=== PATIENT | female | born 1940 | race Caucasian/White ===

== ENCOUNTER → 2017-01-13 | Outpatient (CLI) | payer MEDICARE, BC ==
--- NOTE | 2017-01-17 07:48 | MM ---
Reason for exam: screening (asymptomatic). Last mammogram was performed 1 year ago. History: Patient is postmenopausal and has history of other cancer at age 58. Physical Findings: A clinical breast exam by your physician is recommended on an annual basis and results should be correlated with mammographic findings. MG Screening Mammo w CAD Bilateral CC and MLO view(s) were taken. Prior study comparison: January 07, 2016, bilateral MG screening mammo w CAD. December 03, 2014, bilateral MG screening mammo w CAD. October 16, 2013, bilateral digital screening mammo w/CAD. The breast tissue is heterogeneously dense. This may lower the sensitivity of mammography. Finding: There are typically benign overal all stable calcifications in both breasts. No significant changes in finding since January 07, 2016, December 03, 2014, and October 16, 2013. ASSESSMENT: Benign, BI-RAD 2 RECOMMENDATION: Routine screening mammogram of both breasts in 1 year.
== END ==
LOC: RADMAMWWP 13:10
PROVIDERS: ATTEND Internal Medicine
DX: Z12.31 Encounter for screening mammogram for malignant neoplasm of breast (principal)

== ENCOUNTER → 2017-03-28 | Outpatient (CLI) | payer MEDICARE, BC ==
--- NOTE | 2017-03-29 07:18 | XR ---
EXAMINATION TYPE: XR lumbosacral spine min 4V , 5 VIEWS DATE OF EXAM ORDERED: 03/28/2017 HISTORY: M19.90,M46.1 OA,pelvic pain. COMPARISON: None. FINDINGS: There is a degenerative grade 1 spondylolisthesis of L4 on L5. Alignment otherwise maintai monica. There is wedging of the T12 vertebral body. This appears chronic. There is mild hypertrophic spo ndylosis in the lower dorsal spine. There is mild, diffuse facet arthropathy. There is a levoscoliosi s. The pedicles are intact. Incidental note is made of a previous cholecystectomy. There is atheromatous calcification of the blanca peña aorta. IMPRESSION: 1. DEGENERATIVE, GRADE 1 SPONDYLOLISTHESIS OF L4 ON L5. 2. WEDGING OF THE T12 VERTEBRAL BODY. THIS IS WEDGED BY APPROXIMATELY 20%. THIS APPEARS CHRONIC. 3. NO DEFINITE ACUTE OSSEOUS LESION. 4. DEGENERATIVE CHANGE.
--- NOTE | 2017-03-29 07:19 | XR ---
EXAMINATION TYPE: XR pelvis AP view , ONE VIEW DATE OF EXAM ORDERED: 03/28/2017 HISTORY: M19.90,M46.1 OA,pelvic pain. COMPARISON: None. FINDINGS: There are mild degenerative changes in both hips. Osseous structures about the pelvis are normal. There are phleboliths within the pelvis. IMPRESSION: NO ACUTE OSSEOUS LESION.
== END ==
LOC: RADXRYALE 14:13
PROVIDERS: ATTEND Internal Medicine
DX: R10.2 Pelvic and perineal pain (principal); M43.16 Spondylolisthesis, lumbar region; M47.816 Spondylosis without myelopathy or radiculopathy, lumbar region
CPT/HCPCS: 72110; 72170

== ENCOUNTER → 2017-05-27 | Outpatient (CLI) | payer MEDICARE, BC ==
--- NOTE | 2017-05-27 13:40 | XR ---
EXAMINATION TYPE: XR chest 2V DATE OF EXAM: 05/27/2017 COMPARISON: 04/29/2014 HISTORY: Cough and congestion for one week TECHNIQUE: Frontal and lateral views of the chest are obtained. FINDINGS: There is no focal air space opacity, pleural effusion, or pneumothorax seen. The cardiac silhouette size is within normal limits. The osseous structures are intact. Mild degenerative candelario es of the thoracic spine are noted. IMPRESSION: No acute cardiopulmonary process.
== END | disposition home or self-care (01) ==
LOC: RADXRYALE 10:09
PROVIDERS: ATTEND Internal Medicine
DX: J40 Bronchitis, not specified as acute or chronic (principal); J06.9 Acute upper respiratory infection, unspecified; J12.9 Viral pneumonia, unspecified
CPT/HCPCS: 71020

== ENCOUNTER → 2018-01-26 | Outpatient (CLI) | payer MEDICARE, BC ==
--- NOTE | 2018-01-27 09:47 | MM ---
Reason for exam: screening (asymptomatic). Last mammogram was performed 1 year ago. History: Patient is postmenopausal and has history of other cancer at age 58. Physical Findings: A clinical breast exam by your physician is recommended on an annual basis and results should be correlated with mammographic findings. MG 3D Screening Mammo W/Cad Bilateral CC and MLO view(s) were taken. Prior study comparison: January 13, 2017, bilateral MG screening mammo w CAD. January 07, 2016, bilateral MG screening mammo w CAD. There are scattered fibroglandular densities. Finding: Architectural distortion in the upper outer quadrant of the right breast. New finding since January 13, 2017 and January 07, 2016. ASSESSMENT: Incomplete: need additional imaging evaluation, BI-RAD 0 RECOMMENDATION: Ultrasound of the right breast. [facility] will attempt to contact patient to return for ultrasound.
== END | disposition home or self-care (01) ==
LOC: RADMAMWWP 13:10
PROVIDERS: ATTEND Internal Medicine
DX: Z12.31 Encounter for screening mammogram for malignant neoplasm of breast (principal)
CPT/HCPCS: 77063; 77067

== ENCOUNTER → 2018-02-02 | Outpatient (CLI) | payer MEDICARE, BC ==
--- NOTE | 2018-02-07 09:32 | USB ---
Reason for exam: additional evaluation requested from abnormal screening. History: Patient is postmenopausal and has history of other cancer at age 58. Physical Findings: Nurse did not find any significant physical abnormalities on exam. US Breast Workup RT Right complete breast ultrasound includes all four quadrants, the retroareolar region and axilla. Finding demonstrates ductal ectasia at the nipple and a 0.7 x 0.8 x 0.7cm solid, mixed lesion at 10 o'clock that corresponds to the mammographic finding. These results were verbally communicated with the patient and result sheet given to the patient on 02/02/18. ASSESSMENT: Suspicious, BI-RAD 4 RECOMMENDATION: Ultrasound core biopsy of the right breast. (10 o'clock) Called with mammographic findings and has scheduled an appointment for the patient for 02/08/18 at 11:[address] Morgan. PRELIMINARY REPORT CALLED AND FAXED TO DR. MORGAN ON .
== END | disposition home or self-care (01) ==
LOC: RADUSWWP 14:06
PROVIDERS: ATTEND Internal Medicine
DX: R92.8 Other abnormal and inconclusive findings on diagnostic imaging of breast (principal)

== ENCOUNTER → 2018-02-28 | Day surgery (SDC) | payer MEDICARE, BC ==
[2018-02-28 12:11] VITALS: BP 113/80; PULSE 88; RESP 18; TEMP 97.9; BMI 34.9
--- NOTE | 2018-02-28 13:16 | USB ---
EXAMINATION TYPE: US discontinued breast bx RT DATE OF EXAM: 02/28/2018 CLINICAL HISTORY: R92.8, ABN MAMM. TECHNIQUE: Ultrasound guided core biopsy of right breast. COMPARISON: Prior abnormal ultrasound and mammogram FINDINGS: The procedure of ultrasound guided core biopsy was explained to the patient. Benefits, alt ernatives, and risks were discussed. An informed consent was then obtained. The patient was placed in supine positioning for imaging and for the procedure. Preprocedure scannin g fails to show suspicious residual lesion at 10:00 position zone C right breast. Area marked on prio r study appears to blend with tissue on image 37. 2 separate technologist rescan the area without laquita picious mass or lesion. Mammogram is reviewed before and after procedure without distinct new area of distortion to warrant sampling on 3-D images. It is explained to patient that no suspicious lesion i s seen to warrant biopsy currently. At this point procedure was canceled. Patient was agreeable The patient was kept in the radiology department for short stay after the attempted procedure and the n discharged home in stable condition. IMPRESSION: Unsuccessful canceled ultrasound guided core biopsy of area of concern in the right breas t, no worrisome lesion persisted. BI-RADS 3 probable benign findings. Recommendation: Precautionary diagnostic Three-D right breast mammogram and diagnostic right breast u ltrasound in 6 months time. Patient is agreeable to above recommendation.
== END ==
LOC: RADUSWWP 11:51
PROVIDERS: ATTEND Internal Medicine
DX: R92.8 Other abnormal and inconclusive findings on diagnostic imaging of breast (principal); Z53.8 Procedure and treatment not carried out for other reasons

== ENCOUNTER → 2018-04-27 | Outpatient (CLI) | payer MEDICARE, BC ==
--- NOTE | 2018-04-27 12:39 | XR ---
EXAMINATION TYPE: XR chest 2V DATE OF EXAM: 04/27/2018 COMPARISON: 05/27/2017 TECHNIQUE: PA and lateral views submitted. HISTORY: Cough and congestion FINDINGS: The lungs are clear and there is no pneumothorax, pleural effusion, or focal pneumonia. Heart is en larged and there is a calcified granuloma in the left lung. No overt failure. Hypertrophic and degene rative change of the spine. Mild hyperinflation. IMPRESSION: 1. No acute process. Cardiomegaly correlate for COPD.
== END | disposition home or self-care (01) ==
LOC: RADXRYALE 11:19
PROVIDERS: ATTEND Internal Medicine Interventional Cardiology
DX: E87.8 Other disorders of electrolyte and fluid balance, not elsewhere classified (principal); R25.2 Cramp and spasm
CPT/HCPCS: 71046

== ENCOUNTER → 2018-10-06 | Outpatient (CLI) | payer MEDICARE, BC ==
--- NOTE | 2018-10-08 11:34 | MM ---
Reason for exam: follow-up at short interval from prior study. Last mammogram was performed 8 months ago. History: Patient is postmenopausal and has history of other cancer at age 58. US discontinued breast bx RT of the right breast, February 28, 2018. Physical Findings: Nurse did not find any significant physical abnormalities on exam. MG 3D Diag Mammo W/Cad RT CC and MLO view(s) were taken of the right breast. Prior study comparison: January 26, 2018, bilateral MG 3d screening mammo w/cad. January 13, 2017, bilateral MG screening mammo w CAD. The breast tissue is heterogeneously dense. This may lower the sensitivity of mammography. There is a focal asymmetry in the upper outer quadrant of the right breast that persists. ASSESSMENT: Incomplete: need additional imaging evaluation, BI-RAD 0 RECOMMENDATION: Ultrasound of the right breast.
--- NOTE | 2018-10-08 11:39 | USB ---
History: Patient is postmenopausal and has history of other cancer at age 58. US discontinued breast bx RT of the right breast, February 28, 2018. US Breast RT Right complete breast ultrasound includes all four quadrants, the retroareolar region and axilla. Finding demonstrates a 0.6 x 0.6 x 0.3 cm oval solid hyperechoic lesion at 1 o'clock thought to represent a small lymph node. And at the 10 o'clock position a 0.7 x 0.6 x 0.2 cm possible lymph node. These results were verbally communicated with the patient and result sheet given to the patient on 10/06/18. ASSESSMENT: Probably benign, BI-RAD 3 RECOMMENDATION: Routine screening mammogram of both breasts in 4 months. Back on schedule
== END | disposition home or self-care (01) ==
LOC: RADMAMWWP 13:31
PROVIDERS: ATTEND Internal Medicine
DX: R92.8 Other abnormal and inconclusive findings on diagnostic imaging of breast (principal)
CPT/HCPCS: 77065; 76641; G0279; 77061

== ENCOUNTER → 2019-01-31 | Outpatient (CLI) | payer MEDICARE, BC ==
--- NOTE | 2019-02-01 09:12 | MM ---
Reason for exam: screening (asymptomatic). Last mammogram was performed 4 months ago. History: Patient is postmenopausal and has history of other cancer at age 58. US discontinued breast bx RT of the right breast, February 28, 2018. Physical Findings: A clinical breast exam by your physician is recommended on an annual basis and results should be correlated with mammographic findings. MG 3D Screening Mammo W/Cad Bilateral CC and MLO view(s) were taken. Prior study comparison: October 06, 2018, right breast MG 3d diag mammo w/cad RT. January 26, 2018, bilateral MG 3d screening mammo w/cad. The breast tissue is heterogeneously dense. This may lower the sensitivity of mammography. Benign appearing bilateral calcifications. No suspicious abnormality. No significant changes when compared with prior studies. ASSESSMENT: Benign, BI-RAD 2 RECOMMENDATION: Routine screening mammogram of both breasts in 1 year.
== END | disposition home or self-care (01) ==
LOC: RADMAMWWP 10:45
PROVIDERS: ATTEND Internal Medicine
DX: Z12.31 Encounter for screening mammogram for malignant neoplasm of breast (principal)
CPT/HCPCS: 77063; 77067

== ENCOUNTER → 2019-12-28 | Outpatient (CLI) | payer MEDICARE ==
--- NOTE | 2019-12-28 10:44 | XR ---
EXAMINATION TYPE: XR chest 2V DATE OF EXAM: 12/28/2019 COMPARISON: Prior chest x-ray 04/27/2018 HISTORY: Osteoarthritis, cough TECHNIQUE: Frontal and lateral views of the chest are obtained on 3 images. FINDINGS: There is no pleural effusion or pneumothorax seen. Lungs show question some scarring the right upper lobe, suspect perihilar or right lower lobe airspace disease. The cardiac silhouette size is within normal limits. The osseous structures are intact. Prominent lung lines could be indicati ve of underlying COPD. There is thoracic spondylosis. There may be spinal curvature. Aorta is dense. IMPRESSION: Correlate for pneumonia, follow-up recommended A Yellow level critical message alert has been initiated for Brice Morgan MD via the [employer] Critical Results System on 12/28/2019 10:41 AM. This message alert has been sent to Brice Morgan MD via the preferences provided by the clinician for the receipt of Radiology Critical Findings. Mess age ID [id number].
--- NOTE | 2019-12-28 10:45 | XR ---
Right hip HISTORY: Chronic right hip pain 2 views of the right hip Correlation to pelvis dated 03/28/2017 Mild marginal spurring, joint space loss is again noted. Bone mineralization is reduced. Alignment is maintained. Probable vascular calcifications noted in the pelvis. IMPRESSION: Osteoarthritis right hip. Suspect osteopenia.
== END | disposition home or self-care (01) ==
LOC: RADXRYALE 09:00
PROVIDERS: ATTEND Internal Medicine
DX: M16.11 Unilateral primary osteoarthritis, right hip (principal); R05 Cough
CPT/HCPCS: 71046; 73502

== ENCOUNTER → 2020-01-03 | Outpatient (CLI) | payer MEDICARE ==
--- NOTE | 2020-01-03 12:10 | CT ---
EXAMINATION TYPE: CT chest w con DATE OF EXAM: 01/03/2020 COMPARISON: Chest x-ray 6 days ago and older x-ray 2018. HISTORY: Abnormal CXR, SOB x5 months CT DLP: 413.8 mGycm. Automated Exposure Control for Dose Reduction was Utilized. TECHNIQUE: CT scan of the thorax is performed following with IV Contrast, patient injected with 80 m L of Isovue 300. FINDINGS: LUNGS: Background mild underlying emphysematous change with mild biapical pleural/parenchymal scarrin g. Additional more prominent peripheral reticulation and fibrosis in the right upper lobe. There is 5 mm inferior right upper lobe nodule axial image 26. There is a irregular thick-walled cavitary lesio n posterior right lower lobe axial image 37 measuring 4.0 cm transversely by 2.7 cm AP diameter with surrounding groundglass opacity. Mild bibasilar linear scarring and/or atelectasis. No pleural effusi on or pneumothorax seen bilaterally. MEDIASTINUM: There are abnormal enlarged right hilar and mediastinal lymph nodes. For reference righ t paratracheal 1.6 x 1.2 cm lymph node is noted. For reference 2.9 x 1.6 cm subcarinal lymph node is noted image 28. Abnormal enlarged right hilar lymph nodes axial image 32. Cardiomegaly with moderate right greater than left biatrial dilatation. Trace pericardial effusion anterior-inferior aspect. Cor onary artery calcification is present which is noted marked underlying coronary artery disease. OTHER: Small hiatal hernia is seen. Cholecystectomy clips. No adrenal masses. Slight underlying scoli otic curvature with multilevel spurring in the spine. IMPRESSION: There is background mild emphysematous change with [id number] parenchymal fibrotic changes greatest in the right upper lobe. Corresponding to x-ray abnormality there is peripheral irre gular thick-walled cavitary lesion posteriorly in the right lower lobe. There is abnormal thoracic ad enopathy. Differential includes infectious process with pulmonary abscess and reactive adenopathy lucía laquita primary neoplasm such as squamous cell carcinoma. Strict clinical correlation advised throughout the determine need for further workup by possible bronchoscopy or PET/CT.
== END | disposition home or self-care (01) ==
LOC: RADCTMAIN 10:44
PROVIDERS: ATTEND Internal Medicine
DX: J43.9 Emphysema, unspecified (principal); J84.10 Pulmonary fibrosis, unspecified; R59.0 Localized enlarged lymph nodes; R91.8 Other nonspecific abnormal finding of lung field; R05 Cough
CPT/HCPCS: 82565; 84520; 71260; 36415; Q9967

== ENCOUNTER → 2020-01-18 | Outpatient (CLI) | payer MEDICARE ==
--- NOTE | 2020-01-20 16:26 | PE ---
Nuclear medicine PET/CT HISTORY: Solitary pulmonary nodule, initial Patient received 11.2 mCi F-18 FDG intravenously in delayed scanning was performed from the skull bas e to the mid thighs. Localization and attenuation correction CT scan was performed. Correlation to chest CT dated 01/03/2020 neck and CHEST: There is no evident cervical or supraclavicular adenopathy. No axillary adenopathy. T here is abnormal activity noted in the subcarinal location, associated adenopathy, SUV 8.5. There is right hilar adenopathy with associated hypermetabolic uptake, SUV 6.8. The patient's cavitary lesion in the right lower lobe is again noted and shows some associated uptake, SUV 5.6. Small nodule within the right upper lobe does not show hypermetabolic uptake. There is no pleural or pericardial effusio n. Retrocaval pretracheal node is not enlarged but shows hypermetabolic uptake in 4.7. ABDOMEN: There is no adrenal mass or retroperitoneal adenopathy. No evident liver uptake. Osseous structures: There is a lytic lesion involving the left ilium which shows associated hypermeta bolic uptake, SUV 7.3. Abnormal uptake also noted within the right ischium, there is associated lytic appearance on axial image 232, SUV 8.9. Lytic lesion also involves the right pubic ramus with associ ated uptake present. Multiple ribs show uptake including the anterior fifth rib on the left anterior left sixth rib and the posterior right 12th rib. The left lamina at C2 shows a lytic lesion and assoc iated SUV 9.7. Proximal left humerus shows a punctate focus of abnormal hypermetabolic activity. IMPRESSION: Metastatic disease as described.
== END | disposition home or self-care (01) ==
LOC: RADPETMAIN 09:51
PROVIDERS: ATTEND Internal Medicine Critical Care Medicine
DX: C41.4 Malignant neoplasm of pelvic bones, sacrum and coccyx (principal); C79.51 Secondary malignant neoplasm of bone; R93.7 Abnormal findings on diagnostic imaging of other parts of musculoskeletal system
CPT/HCPCS: 78815; A9552

== ENCOUNTER → 2020-01-25 | Outpatient (CLI) | payer MEDICARE | END | disposition home or self-care (01) | LOC: LABPAT 12:18 | PROVIDERS: ATTEND Internal Medicine Critical Care Medicine | DX: Z11.59 Encounter for screening for other viral diseases (principal) | CPT/HCPCS: 87635 ==

== ENCOUNTER 2020-01-29 11:42 | Day surgery (SDC) | payer MEDICARE ==
[2020-01-29 12:53] VITALS: TEMP 97.8
--- NOTE | 2020-01-29 13:59 | CT ---
EXAMINATION TYPE: CT guided FNA first lesion DATE OF EXAM: 01/29/2020 COMPARISON: PET/CT 01/28/2020 HISTORY: Abnormal PET/CT CT DLP: 824 mGycm Automated exposure control for dose reduction was used. FINDINGS: Following informed consent, skin overlying a suitable path to the patient's lytic lesion in the left ilium was localized using CT. The overlying skin was prepped and draped. Lidocaine was used for local anesthesia. 17-gauge guide needle was advanced to the level of the lytic lesion. Coaxial placement o f an 18-gauge needle was performed. Small amount of sanguinous material exited the guide needle, core specimen was obtained and submitted in formalin to pathology. Following the procedure hemostasis ach ieved. There is no immediate complication. Patient remained in stable condition. IMPRESSION: STATUS POST CORE BIOPSY LYTIC LEFT ILIUM BONE LESION. PATHOLOGY IS PENDING. THIS PROCEDURE PERFORMED BY THE UNDERSIGNED.
[2020-01-29 14:46] VITALS: BP 129/73; PULSE 90; RESP 16
== END 2020-01-29 14:40 | disposition home or self-care (01) ==
LOC: RADPROMAIN 11:42
PROVIDERS: ATTEND Internal Medicine Critical Care Medicine
DX: C79.51 Secondary malignant neoplasm of bone (principal); C34.90 Malignant neoplasm of unspecified part of unspecified bronchus or lung; C44.90 Unspecified malignant neoplasm of skin, unspecified
CPT/HCPCS: 10009; 20220; 36415; 77012; 88305; 88341; 88342

== ENCOUNTER → 2020-02-13 | Outpatient (CLI) | payer MEDICARE ==
--- NOTE | 2020-02-13 09:27 | MR ---
EXAMINATION TYPE: MR brain wo/w con DATE OF EXAM: 02/13/2020 COMPARISON: PET/CT January 18, 2020. HISTORY: Known Lung CA, checking for progression to Brain TECHNIQUE: Multiplanar, multisequence images of the brain and brainstem is performed without and with IV contras t, utilizing 11 mL intravenous Gadavist . FINDINGS: Diffusion weighted images demonstrate no evidence of a recent infarct . There is no worris ome extra-axial fluid collection. There is diffuse ventricular and sulcal prominence. There few scatt ered foci of T2 hyperintensity seen throughout the white matter bilaterally. Midline structures demonstrate normal morphology. The craniocervical junction appears within normal limits. Post contrast images demonstrate 7 mm ring-enhancing left mass right periventricular level a xial image 49 near frontoparietal junction. There is a larger 11 mm high left parietal ring-enhancing mass with adjacent vasogenic edema axial image 65. The dural venous sinuses appear patent. The visua lized sinuses are clear and the globes are intact. There is partial enhancing left upper cervical les ion size sagittal image 69 encroaching on foramen magnum. This is not included in [id number] and a dditional images. This correlates with PET image January 2020. IMPRESSION: There are 2 ring-enhancing metastatic lesions as detailed above. Background mild diffuse reflecting chronic small vessel ischemic change. Left upper cervical metastatic lesion partially imag ed.
== END | disposition home or self-care (01) ==
LOC: RADMRIMAIN 07:23
PROVIDERS: ATTEND Internal Medicine Critical Care Medicine
DX: C79.31 Secondary malignant neoplasm of brain (principal); I99.8 Other disorder of circulatory system; C34.90 Malignant neoplasm of unspecified part of unspecified bronchus or lung
CPT/HCPCS: 70553; A9585

== ENCOUNTER → 2020-04-17 | Outpatient (CLI) | payer MEDICARE ==
--- NOTE | 2020-04-17 16:33 | CT ---
EXAMINATION TYPE: CT chest w con DATE OF EXAM: 04/17/2020 COMPARISON: CT chest 01/03/2020. PET/CT 01/18/2020. HISTORY: Follow up lung cancer CT DLP: 381.6 mGycm Automated exposure control for dose reduction was used. CONTRAST: CT scan of the chest is performed with IV Contrast, patient injected with 80 mL of Isovue 300. FINDINGS: LUNGS: There is a redemonstrated 3.9 x 2.1 cm cavitary lung mass of the right lower lobe (4:39), slig htly changed in configuration and with more cavitary appearance versus 01/03/2020 comparison. There is moderately increased associated groundglass surrounding the mass, increased surrounding patchy opaci ty, and a few spiculated satellite appearing opacities just superiorly measuring up to 9 mm (4:20). T here is a new small right pleural effusion. 5 mm pulmonary nodule of the right upper lobe (4:25), unc hanged versus 01/03/2020. Unchanged additional scattered groundglass opacities, interstitial coarsenin g, and biapical centrilobular emphysema. No pneumothorax seen. The tracheobronchial tree is patent. MEDIASTINUM: Increased size of mediastinal left precarinal node measuring 1.2 x 1.5 cm (3:22), previo usly 0.9 x 1.4 cm on 01/18/2020 and 01/03/2020 comparisons. Subcarinal node measuring 3.8 x 2.0 cm (3:28 ), unchanged from 01/18/2020, and increased from 01/03/2020. Increased size of left hilar lymph node up to 1.2 cm (3:28), previously 0.6 cm. Right hilar lymphadenopathy appears similar. Cardiomegaly redemo nstrated. No pericardial effusion. Calcified coronary artery disease. No thoracic aortic aneurysm. Ma in pulmonary artery enlarged measuring 3.4 cm. OSSEOUS: There is a new superior endplate destruction of the T10 vertebral body most likely metastati c disease. Right rib 12 demonstrates increased size and osteolytic destruction versus 01/03/2020. New sclerotic focus in right rib 8 laterally (4:39). New periosteal reaction and haziness of left posteri or rib 10 (4:44). There is linear fracture deformities with periosteal reaction of anterior left ribs 5 and 6 in vertically oriented distribution, which likely represent traumatic fracture deformities. OTHER: No adrenal nodule. No axillary lymphadenopathy. IMPRESSION: 1. Right lower lobe cavitary lung mass demonstrates slightly different configuration and more cavitar y appearance versus 01/03/2020 and 01/18/2020 comparison. There are increased adjacent groundglass opaci ties and spiculated satellite lesions which are new. New small right pleural effusion. 2. Increased size of mediastinal and left hilar lymphadenopathy. 3. Increased and new osseous metastatic lesions of the spine and ribs. 4. Enlargement pulmonary artery may represent pulmonary arterial hypertension.
== END | disposition home or self-care (01) ==
LOC: RADCTMAIN 13:06
PROVIDERS: ATTEND Internal Medicine Hematology & Oncology
DX: C79.51 Secondary malignant neoplasm of bone (principal); C34.31 Malignant neoplasm of lower lobe, right bronchus or lung; I28.8 Other diseases of pulmonary vessels
CPT/HCPCS: 82565; 84520; 71260; 36415; Q9967

== ENCOUNTER → 2020-05-20 | Outpatient (CLI) | payer MEDICARE ==
--- NOTE | 2020-05-20 23:24 | MR ---
EXAMINATION TYPE: MR brain wo/w con DATE OF EXAM: 05/20/2020 COMPARISON: 02/13/2020 HISTORY: Hx of lung Ca, mets CONTRAST: Performed utilizing 9 mL intravenous Gadavist gadolinium contrast. TECHNIQUE: Multiplanar, multiecho imaging on a 3.0 Yin magnet is performed through the brain. Stud y is performed within 24 hours of arrival to the hospital. The craniovertebral junction is normal. The pituitary is normal. Diffusion-weighted imaging is performed. There is a right periventricular hyperintensity on the inve rsion recovery weighted sequence compatible with acute ischemic change. Series 305 image 152. This is smaller but at same location as the previous exam. The 7 mm ring-enhancing lesion at this level is d iminished in intensity on the postcontrast imaging compared to the previous examination. No interval growth is evident. Previous left parietal subcortical ring-enhancing lesion has diminished in size and there is signific ant improvement of the vasogenic edema. This currently measures 1.2 cm in craniocaudal dimension comp ared to 1.5 cm previous exam. There are some additional punctate white matter changes identified FLAIR images which may be chronic white matter ischemic changes. No additional ring enhancing lesions are evident. No interval growth is evident. No new lesions are i dentified. A abnormality identified within the posterior cervical cord is out of the [id number] on this exam and cannot be reevaluated. Ventricles and sulci are mildly prominent for the patient age. IMPRESSIONS: 1. 2 ring-enhancing lesions compatible with metastatic disease, the larger in the left parietal lobe has diminished in size and diminished vasogenic edema adjacent. The right periventricular ring-enhan cing lesion is stable in size with diminished intensity.
== END | disposition home or self-care (01) ==
LOC: RADMRIMAIN 13:49
PROVIDERS: ATTEND Radiology Radiation Oncology
DX: C79.31 Secondary malignant neoplasm of brain (principal); C79.51 Secondary malignant neoplasm of bone; C77.9 Secondary and unspecified malignant neoplasm of lymph node, unspecified; C34.31 Malignant neoplasm of lower lobe, right bronchus or lung; Z92.3 Personal history of irradiation
CPT/HCPCS: 70553; A9585

== ENCOUNTER → 2020-05-21 | Outpatient (CLI) | payer MEDICARE ==
--- NOTE | 2020-05-21 17:32 | XR ---
EXAMINATION TYPE: XR wrist complete LT DATE OF EXAM: 05/21/2020 CLINICAL HISTORY: Bone neoplasm. History of lung cancer metastatic to bone. TECHNIQUE: 4 views of the right wrist are obtained. COMPARISON: None FINDINGS: There is no acute fracture/dislocation evident in the right wrist. There is degenerative changes and subchondral cysts involving the radiocarpal, carpocarpal, and first carpometacarpal joint . Soft tissue calcification adjacent to the radial anterior aspect of the first carpometacarpal joint . No aggressive osseous destructive lesions seen. IMPRESSION: 1. No acute fracture or dislocation in the right wrist. 2. Degenerative changes of the wrist.
--- NOTE | 2020-05-21 17:34 | XR ---
EXAMINATION TYPE: XR elbow complete LT DATE OF EXAM: 05/21/2020 CLINICAL HISTORY: Neoplasm of bone. History of lung cancer metastatic to bone. TECHNIQUE: Frontal, lateral and oblique images of the right elbow are obtained. COMPARISON: None FINDINGS: There is no acute fracture/dislocation evident in the right elbow. No aggressive osseous d estructive lesions. Degenerative spurring of the ulnar aspect of the olecranon. No abnormal fat pad s igns are seen. The overlying soft tissue appears unremarkable. IMPRESSION: 1. No acute fracture or dislocation in the right elbow. 2. Degenerative change of the medial elbow.
== END | disposition home or self-care (01) ==
LOC: RADXRMAIN 14:12
PROVIDERS: ATTEND Radiology Radiation Oncology
DX: C79.31 Secondary malignant neoplasm of brain (principal); C34.31 Malignant neoplasm of lower lobe, right bronchus or lung; C79.51 Secondary malignant neoplasm of bone; C77.9 Secondary and unspecified malignant neoplasm of lymph node, unspecified; M19.032 Primary osteoarthritis, left wrist; M19.022 Primary osteoarthritis, left elbow; Z92.3 Personal history of irradiation

== ENCOUNTER → 2020-05-23 | Outpatient (CLI) | payer MEDICARE ==
--- NOTE | 2020-05-24 03:01 | MR ---
EXAMINATION TYPE: MR cspine/tspine wo/w con DATE OF EXAM: 05/23/2020 COMPARISON: None HISTORY: Lt arm pain, lung cancer with bone mets. Abnormal brain MRI 05-20-20. CONTRAST: Standard multiplanar, multisequence MRI departmental protocol utilizing 10 mL intravenous Gadavist ga dolinium contrast. Multiplanar multiecho imaging of the cervical and thoracic spine was performed without and with IV co ntrast. There is some straightening of the cervical spine. There is moderate disc space narrowing from C4 to C7 with spurring of the endplates. There is some narrowing of the spinal canal to 6 mm [address] the [address] point at C5-6. Canal measures 7.5 mm at C6-7. Cervical spinal cord shows no sign of edema. The bra instem appears intact. There is multilevel cervical facet arthropathy. There is some facet arthropath y at C2-3 level with posterior impingement on the cervical spinal cord There is no cervical compression fracture. The thoracic vertebra have normal alignment. Thoracic spinal cord has normal signal pattern. There is no evidence of cord edema. There is slight loss of height of T10 and T11 vertebral bodies of 10%. Th ere is mild increased signal in the anterior T11 vertebral body on the T2 images that is consistent w ith edema and relatively acute fracture. There is no thoracic paraspinal mass. I do not see asymmetri c lesion-thoracic or cervical spine to suggest metastatic disease. There is no thoracic spinal stenos is. IMPRESSION: There are some compression fractures of T10 and T11. T11 fracture could be relatively acute. This is probably related to osteoporosis. Spondylotic changes in the cervical spine. There is some spinal stenosis at C5-6. I do not see convincing evidence for cervical or thoracic metastatic disease in this patient with a h istory of cancer.
== END | disposition home or self-care (01) ==
LOC: RADMRIMAIN 19:36
PROVIDERS: ATTEND Internal Medicine Hematology & Oncology
DX: M48.02 Spinal stenosis, cervical region (principal); M47.812 Spondylosis without myelopathy or radiculopathy, cervical region; S22.078A Other fracture of T9-T10 vertebra, initial encounter for closed fracture; S22.088A Other fracture of T11-T12 vertebra, initial encounter for closed fracture; C34.31 Malignant neoplasm of lower lobe, right bronchus or lung; C79.51 Secondary malignant neoplasm of bone
CPT/HCPCS: 72156; 72157; A9585

== ENCOUNTER → 2020-05-30 | Outpatient (CLI) | payer MEDICARE ==
--- NOTE | 2020-06-03 10:06 | PE ---
Nuclear medicine PET/CT HISTORY: Right lung carcinoma, subsequent Patient received 12.4 mCi F-18 FDG intravenously in delayed scanning was performed from the skull bas e to the mid thighs. An attenuation correction CT, localization CT scan was also performed Correlation to prior exam 01/18/2020 Some motion present. Chest and neck: There is no evident cervical or supraclavicular adenopathy, no suspicious uptake. At the right apex there is a nodular density present which is pleural-based and not seen on prior exa m, there is mild uptake, SUV is 3.3. The mediastinal and hilar uptake seen on prior exam is no longer seen, retrocaval pretracheal node is normal in size. Peripheral density in the right lower lobe with associated effusion has developed in the interval, there is some associated uptake at this level, CLEMENT V 3.9. Interstitium is somewhat diffusely increased. At the level of the lingula there is some minima l uptake anteriorly, SUV 3.9. ABDOMEN: No suspicious uptake. No evident liver mass. Adrenal glands show no mass. No retroperitoneal adenopathy. Osseous structures show some improvement in hypermetabolic uptake, C2 region shows less intense uptak e, SUV 2.9 which was 9.7 on prior, proximal left humeral lesion does not show uptake. There is a pelv ic uptake have also improved, right ischium lytic lesion SUV 3.1. Spinous process uptake at the upper thoracic spine 2.7 SUV. IMPRESSION: There is improvement in the previous mediastinal uptake improvement in the bone uptake. Pleural effusion on the right is new, new interstitial changes. Suspicious uptake is new within the p eripheral right lung on the right, lingula, right lung apex.
== END | disposition home or self-care (01) ==
LOC: RADPETMAIN 13:53
PROVIDERS: ATTEND Internal Medicine Hematology & Oncology
DX: R91.1 Solitary pulmonary nodule (principal); J90 Pleural effusion, not elsewhere classified
CPT/HCPCS: 78815; A9552

== ENCOUNTER 2020-05-31 14:29 | Inpatient (IN) | payer MEDICARE ==
[2020-05-31] MEDS ORDERED: PANTOPRAZOLE 40 MG/10 ML VIAL IVP STA (15:28)
--- NOTE | 2020-05-31 15:34 | ED ---
General Adult HPI - General Chief complaint: GI Bleed Stated complaint: Blood In Stool Time Seen by Provider: 05/31/20 15:00 Source: patient Mode of arrival: ambulatory Limitations: no limitations - History of Present Illness Initial comments: Dictation was produced using [employer] ([employer]) dictation software. please excuse any grammatical, word or spelling errors. This patient was cared for during a federal and state declared state of emergency secondary to Covid 19 Chief Complaint: 79-year-old female past medical history of atrial fibrillation, dyslipidemia, lung cancer, presents today with bright red blood per rectum. History of Present Illness: This 79-year-old female she has multiple ongoing medical issues at the moment. She had her Lasix discontinued for worsening renal function. Last 3 days she's been having bright red blood per rectum. She denies any rectal pain. She has been feeling rather lightheaded. 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 She deals with a lot of chronic pain. She denies any history of diverticulitis. Denies any nausea or vomiting. She takes Eliquis for atrial fibrillation. She has been managed by her oncologist on outpatient basis. She did have labs performed recently however family does not have axis to the results. The ROS documented in this emergency department record has been reviewed and confirmed by me. Those systems with pertinent positive or negative responses have been documented in the HPI. All other systems are other negative and/or noncontributory. PHYSICAL EXAM: General Impression: Alert and oriented x3, not in acute distress HEENT: Normocephalic atraumatic, extra-ocular movements intact, pupils equal and reactive to light bilaterally, mucous membranes moist. Cardiovascular: Heart regular rate and rhythm Chest: Able to complete full sentences, no retractions, no tachypnea Abdomen: abdomen soft, non-tender, non-distended, no organomegaly Musculoskeletal: Pulses present and equal in all extremities, no peripheral minnie a Motor: no focal deficits noted Neurological: CN II-XII grossly intact, no focal motor or sensory deficits noted Skin: Intact with no visualized rashes Psych: Normal affect and mood ED course: 79-year-old female presents with chief complaint of acute GI bleed. She has been managed outpatient for lab abnormalities. She takes a blood thinner for atrial fibrillation. Vital signs upon arrival shows heart rate of 105, rest of vital signs within acceptable limits. Patient does have symptoms that could suggest anemia. Laboratory evaluation obtained. Hemoglobin stable at 12.3, rest of CBC is u nremarkable. Coag panel metabolic panel is negative. Considering that patient has had 3 days of bright red blood per rectum there is concern that patient will become more anemic. Patient is agreeable for admission. Will have GI consult it. Patient also complains of shortness of breath or have her real estate sales agent consulted. Case is discussed with Dr. Morgan who also requests that patient's oncologist be consulted as well. - Related Data Home Medications Medication Instructions Recorded Confirmed Apixaban [Eliquis] 5 mg PO BID 02/15/18 01/23/20 Fish Oil/Dha/Epa [Fish Oil 1,200 1 each PO BID 02/15/18 01/29/20 mg Fish Oil] Omeprazole 20 mg PO DAILY 02/15/18 01/29/20 Turmeric/Turmeric Root Extract 450 mg PO TID 02/15/18 01/29/20 [Turmeric 450-50 mg Capsule] Cholecalciferol (Vitamin D3) 2,000 unit PO DAILY 02/27/18 01/29/20 [Vitamin D3] Cyanocobalamin [Vitamin B-12] 500 mcg PO DAILY 02/27/18 01/29/20 Metoprolol Succinate (ER) [Toprol 25 mg PO BID 02/27/18 01/29/20 Xl] Multivit-Min/Iron/Folic/Lutein 1 each PO DAILY 02/27/18 01/29/20 [Centrum Silver Women Tablet] Potassium Chloride [Klor-Con 10] 1 each PO ONCE 02/27/18 01/29/20 Calcium Carbonate/Vitamin D3 1 each PO DAILY 01/23/20 01/29/20 [Caltrate 600 Plus D3 Tablet] Furosemide [Lasix] 20 mg PO DAILY 01/23/20 01/29/20 Glucosamine/Chondr Kim A Sod [Osteo 1 each PO BID 01/23/20 01/29/20 Bi-Flex Caplet] Ascorbic Acid [Vitamin C] 500 mg PO DAILY 01/29/20 01/29/20 Allergies Allergy/AdvReac Type Severity Reaction Status Date / Time No Known Allergies Allergy Verified 05/31/20 14:39 Review of Systems ROS Statement: Those systems with pertinent positive or pertinent negative responses have been documented in the HPI. ROS Other: All systems not noted in ROS Statement are negative. Past Medical History Past Medical History: Atrial Fibrillation, Cancer, GERD/Reflux, Hyperlipidemia, Hypertension, Osteoarthritis (OA) Additional Past Medical History / Comment(s): lung CA History of Any Multi-Drug Resistant Organisms: None Reported Past Surgical History: Cholecystectomy, Hysterectomy, Joint Replacement Additional Past Surgical History / Comment(s): Left knee replacement Past Anesthesia/Blood Transfusion Reactions: Previous Problems w/ Anesthesia Additional Past Anesthesia/Blood Transfusion Reaction / Comment(s): Heart rate drops with anesthesia Past Psychological History: No Psychological Hx Reported Smoking Status: Former smoker Past Drug Use History: None Reported - Past Family History Mother Family Medical History: Osteoarthritis (OA) Father Family Medical History: CVA/TIA Sister(s) Family Medical History: Cancer Additional Family Medical History / Comment(s): ovarian, colorectal, lung Brother(s) Family Medical History: Cancer Additional Family Medical History / Comment(s): brain General Exam Limitations: no limitations Course Vital Signs 05/31/20 05/31/20 14:35 16:38 Temperature 98.6 F 98.3 F Pulse Rate 105 H 86 Respiratory 18 22 Rate Blood Pressure 143/79 139/85 O2 Sat by Pulse 98 95 Oximetry Medical Decision Making - Lab Data Result diagrams: 05/31/20 15:40 05/31/20 15:40 Lab Results 05/31/20 05/31/20 05/31/20 Range/Units 15:40 15:40 15:40 WBC 8.4 (3.8-10.6) k/uL RBC 4.49 (3.80-5.40) m/uL Hgb 12.3 (11.4-16.0) gm/dL Hct 39.2 (34.0-46.0) % MCV 87.2 (80.0-100.0) fL MCH 27.4 (25.0-35.0) pg MCHC 31.4 (31.0-37.0) g/dL RDW 14.9 (11.5-15.5) % Plt Count 264 (150-450) k/uL Neutrophils % 80 % Lymphocytes % 10 % Monocytes % 6 % Eosinophils % 2 % Basophils % 0 % Neutrophils # 6.8 (1.3-7.7) k/uL Lymphocytes # 0.9 L (1.0-4.8) k/uL Monocytes # 0.5 (0-1.0) k/uL Eosinophils # 0.1 (0-0.7) k/uL Basophils # 0.0 (0-0.2) k/uL PT (9.0-12.0) sec INR (<1.2) APTT (22.0-30.0) sec Sodium 138 (137-145) mmol/L Potassium 4.1 (3.5-5.1) mmol/L Chloride 108 H (98-107) mmol/L Carbon Dioxide 23 (22-30) mmol/L Anion Gap 7 mmol/L BUN 16 (7-17) mg/dL Creatinine 1.22 H (0.52-1.04) mg/dL Est GFR (CKD-EPI)AfAm 48 (>60 ml/min/1.73 sqM) Est GFR (CKD-EPI)NonAf 42 (>60 ml/min/1.73 sqM) Glucose 124 H (74-99) mg/dL Plasma Lactic Acid Xavi 1.1 (0.7-2.0) mmol/L Calcium 9.5 (8.4-10.2) mg/dL Magnesium 2.1 (1.6-2.3) mg/dL Total Bilirubin 0.7 (0.2-1.3) mg/dL AST 17 (14-36) U/L ALT 13 (4-34) U/L Alkaline Phosphatase 72 (38-126) U/L Total Protein 6.2 L (6.3-8.2) g/dL Albumin 3.4 L (3.5-5.0) g/dL Blood Type Blood Type Recheck Bld Type Recheck Status Antibody Screen Spec Expiration Date 05/31/20 05/31/20 Range/Units 15:40 15:40 WBC (3.8-10.6) k/uL RBC (3.80-5.40) m/uL Hgb (11.4-16.0) gm/dL Hct (34.0-46.0) % MCV (80.0-100.0) fL MCH (25.0-35.0) pg MCHC (31.0-37.0) g/dL RDW (11.5-15.5) % Plt Count (150-450) k/uL Neutrophils % % Lymphocytes % % Monocytes % % Eosinophils % % Basophils % % Neutrophils # (1.3-7.7) k/uL Lymphocytes # (1.0-4.8) k/uL Monocytes # (0-1.0) k/uL Eosinophils # (0-0.7) k/uL Basophils # (0-0.2) k/uL PT 11.8 (9.0-12.0) sec INR 1.2 H (<1.2) APTT 27.9 (22.0-30.0) sec Sodium (137-145) mmol/L Potassium (3.5-5.1) mmol/L Chloride (98-107) mmol/L Carbon Dioxide (22-30) mmol/L Anion Gap mmol/L BUN (7-17) mg/dL Creatinine (0.52-1.04) mg/dL Est GFR (CKD-EPI)AfAm (>60 ml/min/1.73 sqM) Est GFR (CKD-EPI)NonAf (>60 ml/min/1.73 sqM) Glucose (74-99) mg/dL Plasma Lactic Acid Xavi (0.7-2.0) mmol/L Calcium (8.4-10.2) mg/dL Magnesium (1.6-2.3) mg/dL Total Bilirubin (0.2-1.3) mg/dL AST (14-36) U/L ALT (4-34) U/L Alkaline Phosphatase (38-126) U/L Total Protein (6.3-8.2) g/dL Albumin (3.5-5.0) g/dL Blood Type A Positive Blood Type Recheck A Pos Bld Type Recheck Status No Antibody Screen NEGATIVE Spec Expiration Date 06/03/2020 - 234 Disposition Clinical Impression: GI bleed Disposition: ADMITTED IP TO THIS [facility] Condition: Fair Referrals: Brice Morgan MD [Primary Care Provider] - 1-2 days Decision Time: 17:11
[2020-05-31 15:59] LABS: Basophils % (A) 0 %; Eosinophils # (A) 0.1 k/uL (0-0.7); Eosinophils % (A) 2 %; HCT 39.2 % (34.0-46.0); HGB 12.3 gm/dL (11.4-16.0); Lymphocytes # (A) 0.9 k/uL (1.0-4.8); Lymphocytes % (A) 10 %; MCH 27.4 pg (25.0-35.0); MCHC 31.4 g/dL (31.0-37.0); MCV 87.2 fL (80.0-100.0); Monocytes # (A) 0.5 k/uL (0-1.0); Monocytes % (A) 6 %; Neutrophils # (A) 6.8 k/uL (1.3-7.7); Neutrophils % (A) 80 %; Platelet Count 264 k/uL (150-450); RBC 4.49 m/uL (3.80-5.40); RDW 14.9 % (11.5-15.5); WBC 8.4 k/uL (3.8-10.6)
[2020-05-31 16:17] LABS: INR 1.2 (<1.2); Partial Thromboplastin Time 27.9 sec (22.0-30.0); Prothrombin Time 11.8 sec (9.0-12.0)
[2020-05-31 16:20] LABS: Albumin 3.4 g/dL (3.5-5.0); Calcium 9.5 mg/dL (8.4-10.2); Magnesium 2.1 mg/dL (1.6-2.3); Potassium 4.1 mmol/L (3.5-5.1); Total Bilirubin 0.7 mg/dL (0.2-1.3); Total Protein 6.2 g/dL (6.3-8.2)
--- NOTE | 2020-05-31 16:42 | XR ---
EXAMINATION TYPE: XR chest 2V DATE OF EXAM: 05/31/2020 COMPARISON: Chest CT April 17, 2020.Most recent chest x-ray December 28, 2019. PET CT earlier today. HISTORY: Known lung cancer with dyspnea. TECHNIQUE: Frontal and lateral views of the chest are obtained. FINDINGS: There is background moderate chronic emphysematous change with small right greater than le ft pleural effusions. There is posterior right midlung consolidation and/or atelectasis. There is pat caren left lung atelectasis and/or infiltrate. The cardiac silhouette size is mildly enlarged. New mild to moderate interstitial edema. The osseous structures are demineralized. IMPRESSION: Suspect CHF exacerbation as there is cardiomegaly with new mild to moderate interstitial edema and small right greater than left pleural effusions. Correlate clinically. There is additional new patchy left basilar acute infiltrate and/or atelectasis in posterior right midlung acute infiltr ate and/or atelectasis noted. Background moderate emphysematous and chronic parenchymal fibrotic johnston ge noted.
[2020-05-31] MEDS ORDERED: IPRATROPIUM-ALBUTEROL 3 ML NEB INHALATION STA (16:47)
[2020-05-31] MEDS ORDERED: ONDANSETRON 4 MG/2 ML VIAL IVP PRN (17:05)
[2020-05-31] MEDS ORDERED: NALOXONE 0.4 MG/ML 1 ML VIAL IV PRN (17:05)
[2020-05-31] MEDS: SODIUM CHLORIDE 0.9% 1,000 ML IV SCH (18:26)
[2020-05-31] MEDS ORDERED: HYDROcodone/APAP 10-325MG 1 EACH TAB PO PRN (19:36)
[2020-05-31] MEDS ORDERED: ACETAMINOPHEN TAB 325 MG TAB PO PRN (19:42)
[2020-05-31] MEDS: IPRATROPIUM-ALBUTEROL 3 ML NEB INHALATION SCH (20:05)
--- NOTE | 2020-05-31 20:12 | P.HPIM ---
History of Present Illness H&P Date: 05/31/20 (Bleeding per rectum recurrent) Chief Complaint: Patient brought to the hospital by her family in a car, recurrent rectal bl This is a dictation of the history and physical date of service 05/31/[address] Morgan. Chief complaint: Patient has recurrent bright red blood at home with each bowel movement for the last 4-5 days. History of present illness: Patient with history of atrial fibrillation she is on request 5 mg twice a day by cardiology. 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, ribs, right and left hips which she had Past Medical History Past Medical History: Atrial Fibrillation, Cancer, GERD/Reflux, Hyperlipidemia, Hypertension, Osteoarthritis (OA) Additional Past Medical History / Comment(s): lung CA History of Any Multi-Drug Resistant Organisms: None Reported Past Surgical History: Cholecystectomy, Hysterectomy, Joint Replacement Additional Past Surgical History / Comment(s): Left knee replacement Past Anesthesia/Blood Transfusion Reactions: Previous Problems w/ Anesthesia Additional Past Anesthesia/Blood Transfusion Reaction / Comment(s): Heart rate drops with anesthesia Past Psychological History: No Psychological Hx Reported Smoking Status: Former smoker Past Drug Use History: None Reported - Past Family History Mother Family Medical History: Osteoarthritis (OA) Father Family Medical History: CVA/TIA Sister(s) Family Medical History: Cancer Additional Family Medical History / Comment(s): ovarian, colorectal, lung Brother(s) Family Medical History: Cancer Additional Family Medical History / Comment(s): brain Medications and Allergies Home Medications Medication Instructions Recorded Confirmed Type Omeprazole 20 mg PO DAILY 02/15/18 05/31/20 History Cyanocobalamin [Vitamin B-12] 500 mcg PO DAILY 02/27/18 05/31/20 History Potassium Chloride [Klor-Con 10] 10 meq PO DAILY 02/27/18 05/31/20 History Calcium Carbonate/Vitamin D3 1 tab PO HS 01/23/20 05/31/20 History [Caltrate 600 Plus D3 Tablet] Furosemide [Lasix] 20 mg PO DAILY 01/23/20 05/31/20 History Glucosamine/Chondr Kim A Sod [Osteo 1 tab PO BID 01/23/20 05/31/20 History Bi-Flex Caplet] Albuterol Inhaler [Ventolin Hfa 2 puff INHALATION RT-Q4H PRN 05/31/20 05/31/20 History Inhaler] Albuterol Nebulized [Ventolin 2.5 mg INHALATION RT-Q4H PRN 05/31/20 05/31/20 History Nebulized] Apixaban [Eliquis] 5 mg PO BID 05/31/20 05/31/20 History HYDROcodone/APAP 10-325MG [Carver 1 tab PO Q6H PRN 05/31/20 05/31/20 History 10-325] Metoprolol Tartrate [Lopressor] 75 mg PO BID 05/31/20 05/31/20 History Ondansetron [Zofran] 4 mg PO Q6H PRN 05/31/20 05/31/20 History Turmeric Root Extract [Turmeric] 1,000 mg PO DAILY 05/31/20 05/31/20 History predniSONE 20 mg PO DAILY 05/31/20 05/31/20 History Allergies Allergy/AdvReac Type Severity Reaction Status Date / Time No Known Allergies Allergy Verified 05/31/20 17:19 Physical Exam Vitals: Vital Signs Temp Pulse Pulse Resp BP BP Pulse Ox 05/31/20 19:00 97.9 F 104 H 22 131/83 98 05/31/20 18:25 98.1 F 77 20 140/80 96 05/31/20 17:39 92 05/31/20 17:31 92 05/31/20 16:38 98.3 F 86 22 139/85 95 05/31/20 14:35 98.6 F 105 H 18 143/79 98 Intake and Output 05/31/20 05/31/20 05/31/20 06:59 14:59 22:59 Other: Weight 102.058 kg Results CBC & Chem 7: 05/31/20 15:40 05/31/20 15:40 Labs: Abnormal Lab Results - Last 24 Hours (Table) 05/31/20 05/31/20 05/31/20 Range/Units 15:40 15:40 15:40 Lymphocytes # 0.9 L (1.0-4.8) k/uL INR 1.2 H (<1.2) Chloride 108 H (98-107) mmol/L Creatinine 1.22 H (0.52-1.04) mg/dL Glucose 124 H (74-99) mg/dL Total Protein 6.2 L (6.3-8.2) g/dL Albumin 3.4 L (3.5-5.0) g/dL
[2020-05-31] MEDS: METOPROLOL TARTRATE 25 MG TAB PO SCH (20:54)
[2020-05-31] MEDS: MORPHINE SULFATE 4 MG/ML SYRINGE IV PRN (20:58)
[2020-05-31] MEDS: ZOLPIDEM 5 MG TAB PO PRN (23:15)
[2020-06-01] MEDS: SODIUM CHLORIDE 0.9% 1,000 ML IV SCH (03:05)
[2020-06-01 06:22] LABS: Basophils % (A) 1 %; Eosinophils # (A) 0.1 k/uL (0-0.7); Eosinophils % (A) 3 %; HCT 33.4 % (34.0-46.0); HGB 10.6 gm/dL (11.4-16.0); Lymphocytes # (A) 1.1 k/uL (1.0-4.8); Lymphocytes % (A) 20 %; MCH 27.7 pg (25.0-35.0); MCHC 31.8 g/dL (31.0-37.0); Mean Platelet Volume 6.7; Monocytes # (A) 0.6 k/uL (0-1.0); Monocytes % (A) 10 %; Neutrophils # (A) 3.7 k/uL (1.3-7.7); Neutrophils % (A) 65 %; Platelet Count 244 k/uL (150-450); RBC 3.83 m/uL (3.80-5.40); RDW 14.7 % (11.5-15.5); WBC 5.7 k/uL (3.8-10.6)
[2020-06-01] MEDS: IPRATROPIUM-ALBUTEROL 3 ML NEB INHALATION SCH ×4 (07:16→18:57)
[2020-06-01] MEDS: predniSONE 20 MG TAB PO SCH (08:42)
[2020-06-01] MEDS: METOPROLOL TARTRATE 25 MG TAB PO SCH ×2 (08:42→20:25)
[2020-06-01] MEDS: POTASSIUM CITRATE 10 MEQ TABLET.ER PO SCH (08:42)
[2020-06-01] MEDS: CYANOCOBALAMIN 500 MCG TAB PO SCH ×2 (08:43→08:44)
[2020-06-01] MEDS: FUROSEMIDE 20 MG TAB PO SCH (08:43)
[2020-06-01] MEDS: PANTOPRAZOLE 40 MG/10 ML VIAL IV SCH (08:43)
[2020-06-01 10:02] LABS: African American GFR (CKD) 54.5 (60.0-200.0); Albumin 3.3 g/dL (3.80-4.90); Albumin/Globulin Ratio 2.06 (1.60-3.17); Anion Gap 6.1 mmol/L (4.00-12.00); BUN/Creat Ratio 12.73 Ratio (12.00-20.00); Calcium 8.3 mg/dL (8.7-10.3); Carbon Dioxide 25.9 mmol/L (21.6-31.8); Globulin 1.6 g/dL (1.6-3.3); Potassium 3.9 mmol/L (3.5-5.5); Total Bilirubin 0.5 mg/dL (0.2-1.2); Total Protein 4.9 g/dL (6.2-8.2)
[2020-06-01 10:02] LABS: % Iron Saturation 21.56 (12.00-45.00)
[2020-06-01 10:14] LABS: Ferritin 330.8 ng/mL (10.0-291.0)
--- NOTE | 2020-06-01 10:26 | P.CONS ---
History of Present Illness - Reason for Consult Consult date: 05/31/20 lung cancer Requesting physician: Neo Irizarry - Chief Complaint Rectal Bleeding - History of Present Illness This is a very nice lady who presented with persistent dry cough started in August/2019,she had a CXR then a CT scan of chest done on 01/03/2020 which revealed 4 cm cavitary mass in RLL and enlarged hilar nodes,PET scan on 01/18/2020 revealed suspicious uptake in RLL lung mass,right hilar node and subcarinal node and evidence of multiple osseous lesions,including her hips. On 01/29/2020,CT guided biopsy of left iliac bone lesion was positive for adenoc arcinoma consistent with lung primary. PDL-1 was 20% NextGen sequencing and liquid biopsy did not show any actionable mutation On 02/12/2020,brain MRI revealed 2 small lesions consistent with metastatic disease. She completed palliative XRT to hips,brain (SBRT) and cervical spine on 03/07/2020. On 03/21/2020,she started yervoy/opdivo She feels very tired,persistent nausea/vominting over the last week,numbness and pain in left wrist up to elbow,barely drinking or eating,very poor urine out p ut,constipated,recent MRI of C and T spine did not reveal any evidence significant metastatic disease,small lytic lesion at C2, At last visit on 05/27 Dr. 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 She was also clinically dehydrated and low blood pressure. On 05/27 he recommended hospital admission but she declined. Immunootherapy was placed on Hold Steroids and PPI initiated Review of Systems All systems: negative (HPI) Past Medical History Past Medical History: Atrial Fibrillation, Cancer, GERD/Reflux, Hyperlipidemia, Hypertension, Osteoarthritis (OA) Additional Past Medical History / Comment(s): lung CA History of Any Multi-Drug Resistant Organisms: None Reported Past Surgical History: Cholecystectomy, Hysterectomy, Joint Replacement Additional Past Surgical History / Comment(s): Left knee replacement Past Anesthesia/Blood Transfusion Reactions: Previous Problems w/ Anesthesia Additional Past Anesthesia/Blood Transfusion Reaction / Comm: Heart rate drops with anesthesia Past Psychological History: No Psychological Hx Reported Smoking Status: Former smoker Past Drug Use History: None Reported - Past Family History Mother Family Medical History: Osteoarthritis (OA) Father Family Medical History: CVA/TIA Sister(s) Family Medical History: Cancer Additional Family Medical History / Comment(s): ovarian, colorectal, lung Brother(s) Family Medical History: Cancer Additional Family Medical History / Comment(s): brain Medications and Allergies Home Medications Medication Instructions Recorded Confirmed Type Omeprazole 20 mg PO DAILY 02/15/18 05/31/20 History Cyanocobalamin [Vitamin B-12] 500 mcg PO DAILY 02/27/18 05/31/20 History Potassium Chloride [Klor-Con 10] 10 meq PO DAILY 02/27/18 05/31/20 History Calcium Carbonate/Vitamin D3 1 tab PO HS 01/23/20 05/31/20 History [Caltrate 600 Plus D3 Tablet] Glucosamine/Chondr Kim A Sod [Osteo 1 tab PO BID 01/23/20 05/31/20 History Bi-Flex Caplet] Albuterol Inhaler [Ventolin Hfa 2 puff INHALATION RT-Q4H PRN 05/31/20 05/31/20 History Inhaler] Albuterol Nebulized [Ventolin 2.5 mg INHALATION RT-Q4H PRN 05/31/20 05/31/20 History Nebulized] HYDROcodone/APAP 10-325MG [[place] 1 tab PO Q6H PRN 05/31/20 05/31/20 History 10-325] Ondansetron [Zofran] 4 mg PO Q6H PRN 05/31/20 05/31/20 History Turmeric Root Extract [Turmeric] 1,000 mg PO DAILY 05/31/20 05/31/20 History predniSONE 20 mg PO DAILY 05/31/20 05/31/20 History Apixaban [Eliquis] 2.5 mg PO BID tablet 06/03/20 Rx Cyanocobalamin [Vitamin B-12] 500 mcg PO DAILY tab 06/03/20 Rx Furosemide [Lasix] 20 mg PO BID@0900,1600 tab 06/03/20 Rx Hydrocortisone Suppository 25 mg RECTAL DAILY #30 supp 06/03/20 Rx [Anusol-Hc] Metoprolol Tartrate [Lopressor] 50 mg PO BID tab 06/03/20 Rx Allergies Allergy/AdvReac Type Severity Reaction Status Date / Time No Known Allergies Allergy Verified 05/31/20 17:19 Physical Exam Vitals: Vital Signs Temp Pulse Pulse Resp BP BP Pulse Ox 05/31/20 20:23 95 05/31/20 20:06 98 05/31/20 19:00 97.9 F 104 H 22 131/83 98 05/31/20 18:25 98.1 F 77 20 140/80 96 05/31/20 17:39 92 05/31/20 17:31 92 05/31/20 16:38 98.3 F 86 22 139/85 95 05/31/20 14:35 98.6 F 105 H 18 143/79 98 Intake and Output 05/31/20 05/31/20 05/31/20 06:59 14:59 22:59 Other: Weight 102.058 kg - Constitutional General appearance: cooperative, no acute distress - EENT Eyes: EOMI, dentition normal ENT: hard of hearing, NA/AT, normal oropharynx - Neck Neck: normal ROM - Respiratory Respiratory: bilateral: diminished - Cardiovascular Rhythm: regular Heart sounds: normal: S1, S2 - Gastrointestinal General gastrointestinal: normal bowel sounds, soft - Integumentary Integumentary: pale - Neurologic non focal - Musculoskeletal Musculoskeletal: generalized weakness - Psychiatric Psychiatric: A&O x's 3 Results CBC & Chem 7: 06/02/20 05:16 06/02/20 05:16 Labs: Abnormal Lab Results - Last 24 Hours (Table) 05/31/20 05/31/20 05/31/20 Range/Units 15:40 15:40 15:40 Lymphocytes # 0.9 L (1.0-4.8) k/uL INR 1.2 H (<1.2) Chloride 108 H (98-107) mmol/L Creatinine 1.22 H (0.52-1.04) mg/dL Glucose 124 H (74-99) mg/dL Total Protein 6.2 L (6.3-8.2) g/dL Albumin 3.4 L (3.5-5.0) g/dL Chest x-ray: report reviewed Assessment and Plan Plan: Assessment and Recommendations: Metastatic Lung Cancer: - Recently on immune therapy which is on hold for concern of immune related side effects - Steroids Taper recently started Rectal Bleeding: - GI consult in place - PPI with steroids Physician Attest: I have completed the full history and physical and agree with above dictation dictated as a scribe'
[2020-06-01] MEDS ORDERED: FUROSEMIDE 10 MG/ML 4 ML VIAL IV STA (10:49)
--- NOTE | 2020-06-01 12:30 | P.PN ---
Subjective Progress Note Date: 06/01/20 (Rectal bleeding, atrial fibrillation,) Principal diagnosis: Rectal bleeding bright red blood for the last 4-5 days with the drop in hemoglobin to gram with hydration. Right lung CA with metastasis brain, C2, bilateral hips, ribs treated with radiation and immunotherapy. Patient requested no code, no CPR. This is dictation on progress note Date of service 06/01/2020. Patient still have bloody rectal bleeding, seen by Dr. Deirdre MCCOY, and planned for colonoscopy tomorrow for evaluation and treatment. Possibility of novel anticoagulant orally given by cardiology for atrial fibri llation could be the reason for that as well. She had questionable diastolic dysfunction with congestive heart failure with the elevated pro-BMP and a chest x-ray indicator of pulmonary congestion, nanci wallace seen by pulmonary and critical care, IV fluids discontinued and patient got extra dose of Lasix. And I ordered EKG to see the rate of the atrial fibrillation and if it is not controlled will add air quality technician. Patient currently conscious alert oriented 3, she is feeling better however still resistant to the bleeding per rectum. Her vital sign today on 06/01/2020 indicating that temperature 98.1 F oral, heart rate 92/m and respiratory rate 18 and blood pressure 132/86 and a pulse ox 95 on 2 L. Laboratory indicating that EGFR for non- 47 with the underlying chronic kidney disease, sodium and potassium within normal limits as well as carbon dioxide. Her creatinine improved from 1.221.1. Lactic acid 1.1, proBNP 10,600. Her hemoglobin drop from 12.310.6 with the gross blood in the stools. On the physical examination: Patient is conscious alert oriented 3 no acute pain. No abdominal pain. Head was normocephalic and atraumatic pupil was equal reactive conjunctiva pale, Oropharynx dentures upper and lower. Neck was supple no JVD no thyromegaly no lymph adenopathy. Chest she lung is created bilateral however she feel decreased air entry in the right lung field, auscultation was negative normal and the chest x-ray was indicating congestive heart failure probably diastolic however will obtain echocardiogram hopefully tomorrow. Heart: Regular irregularities with atrial fibrillation and we're holding at this time elliquis due to rectal bleeding with a drop of hemoglobin. GI: No nausea no vomiting. Extremities: She able to go to the bathroom with the use of the walker. And with the consultation of the physical therapy. Neuropsychiatry: Insomnia, and anxiety with her illness. Assessment: Rectal bleeding etiology is unclear going for endoscopy tomorrow by Dr. Gilmore on 06/02/2020 for evaluation. The novel anticoagulant for atrial fibrillation with held and could be a part of the problem of the bleeding and consideration. Atrial fibrillation. 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 Advanced osteoarthritis. Chronic kidney disease stage III. Plan: #1 waiting for the results of the lower endoscopy, #2 with holding the novel anticoagulant #3 obtaining EKG with the atrial septum. Currently controlled heart rate. #3 continue monitoring the patient's. Objective - Vital Signs Vital signs: Vital Signs Temp 98.1 F 06/01/20 07:00 Pulse 92 06/01/20 11:27 Resp 18 06/01/20 07:00 BP 132/86 06/01/20 07:00 Pulse Ox 95 06/01/20 07:00 Intake & Output 05/31/20 06/01/20 06/01/20 18:59 06:59 18:59 Intake Total 200 Output Total 100 Balance 100 Weight 102.058 kg 102.058 kg Intake: Oral 200 Output: Urine/Stool Mix 100 Other: # Voids 1 # Bowel Movements 1 - Labs CBC & Chem 7: 06/01/20 05:38 06/01/20 05:38 Labs: Abnormal Lab Results - Last 24 Hours (Table) 05/31/20 05/31/20 05/31/20 Range/Units 15:40 15:40 15:40 Hgb (11.4-16.0) gm/dL Hct (34.0-46.0) % Lymphocytes # 0.9 L (1.0-4.8) k/uL INR 1.2 H (<1.2) Chloride 108 H (98-107) mmol/L Creatinine 1.22 H (0.52-1.04) mg/dL Est GFR (CKD-EPI)AfAm (60.0-200.0) Est GFR (CKD-EPI)NonAf (60.0-200.0) Glucose 124 H (74-99) mg/dL Calcium (8.7-10.3) mg/dL Iron (50-170) ug/dL TIBC (228-460) ug/dL Ferritin (10.0-291.0) ng/mL Total Protein 6.2 L (6.3-8.2) g/dL Albumin 3.4 L (3.5-5.0) g/dL Cortisol (3.10-22.40) ug/dL 05/31/20 06/01/20 06/01/20 Range/Units 15:42 05:38 05:38 Hgb 10.6 L (11.4-16.0) gm/dL Hct 33.4 L (34.0-46.0) % Lymphocytes # (1.0-4.8) k/uL INR (<1.2) Chloride (98-107) mmol/L Creatinine (0.52-1.04) mg/dL Est GFR (CKD-EPI)AfAm 54.5 L (60.0-200.0) Est GFR (CKD-EPI)NonAf 47.0 L (60.0-200.0) Glucose (74-99) mg/dL Calcium 8.3 L (8.7-10.3) mg/dL Iron 47 L (50-170) ug/dL TIBC 218 L (228-460) ug/dL Ferritin 330.8 H (10.0-291.0) ng/mL Total Protein 4.9 L (6.3-8.2) g/dL Albumin 3.30 L (3.5-5.0) g/dL Cortisol 23.5 H (3.10-22.40) ug/dL
--- NOTE | 2020-06-01 13:31 | P.CNPUL ---
History of Present Illness Consult date: 06/01/20 Reason for consult: dyspnea History of present illness: This patient has metastatic adenocarcinoma of the lung. She is well-known to me. I was involved in her original diagnosis. At that time the patient came in for an abnormal lung mass and the CAT scan of the chest showed a 4 cm cavitating lesion the right lower lobe along with enlarged hilar lymph nodes and the PET scan furthermore showed increased uptake within the right lower lobe mass, hilar lymph nodes, subcarinal lymph nodes and multiple bony lesions involving her hips. The patient underwent a CT-guided biopsy of the left iliac bone and roustabout head to be adenocarcinoma lung primary. MRI of the brain was positive as the patient was found to have [employer] metastases. The patient was given radiation therapy to the hips, brain and cervical spine on 03/07/2020 and the patient was started on a combination of [place]?Opdivo under the care of Dr. Kumar and the patient has been receiving immunotherapy every 2 weeks. At one point she started getting sicker including diminished appetite and poor drinking and diminished urine output. She was getting also progressively more tired and occasionally was having nausea and vomiting and this was considered to be related to the immunotherapy treatment. She did not have any adrenal insufficiency. She did not have any pneumonitis. She came into the hospital yesterday because of worsening shortness of breath and as stated that she was having rectal bleeding. She was developing some constipation with narcotics that she was taking for pain control. She still some bright red blood per rectum. Her previous colonoscopy was done many years back. That hemoglobin dropped down to 10.6 from a baseline of 12.3.. The patient has chronic atrial fibrillation. She was taken anticoagulation form of Eliquis and this was placed on hold. Her chest x-ray shows CHF with cardiomegaly and increased interstitial edema right more than left pleural effusion in addition to that there was a new patchy left basilar infiltrate/atelectasis in addition to atelectatic changes in the right midlung and right posterior lung area. The patient's proBNP level was 10,600. TSH was at 2.01. Serum cortisol was 23.5. Serum iron was low at 47. Creatinine was 1.2 and subsequently down to 1.1. Correlation profile is within normal limits. The patient is scheduled to have a colonoscopy tomorrow. Review of Systems Constitutional: Reports fatigue, Reports poor appetite, Reports weakness, Reports weight loss Eyes: denies as per HPI, denies blurred vision, denies bulging eye, denies d ecreased vision, denies diplopia, denies discharge, denies dry eye, denies irritation, denies itching, denies pain, denies photophobia, denies loss of peripheral vision, denies loss of vision, denies tunnel vision/blind spots Ears: deny: decreased hearing, ear discharge, earache, tinnitus Ears, nose, mouth and throat: Denies headache, Denies sore throat Breasts: absent: as per HPI, change in shape, gynecomastia, masses, nipple discharge, pain, skin changes, swelling Cardiovascular: Reports decreased exercise tolerance, Reports dyspnea on exertion, Reports shortness of breath Respiratory: Reports dyspnea Gastrointestinal: Reports BRBPR Genitourinary: Reports as per HPI Menstruation: Reports as per HPI Musculoskeletal: Reports low back pain, Reports neck pain Musculoskeletal: absent: ankle pain, ankle stiffness, ankle swelling Integumentary: Reports as per HPI Neurological: Reports as per HPI Psychiatric: Reports as per HPI Endocrine: Reports as per HPI, Reports fatigue Hematologic/Lymphatic: Reports as per HPI Allergic/Immunologic: Reports as per HPI Past Medical History Past Medical History: Atrial Fibrillation, Cancer, GERD/Reflux, Hyperlipidemia, Hypertension, Osteoarthritis (OA) Additional Past Medical History / Comment(s): lung CA History of Any Multi-Drug Resistant Organisms: None Reported Past Surgical History: Cholecystectomy, Hysterectomy, Joint Replacement Additional Past Surgical History / Comment(s): Left knee replacement Past Anesthesia/Blood Transfusion Reactions: Previous Problems w/ Anesthesia Additional Past Anesthesia/Blood Transfusion Reaction / Comment(s): Heart rate drops with anesthesia Past Psychological History: No Psychological Hx Reported Smoking Status: Former smoker Past Drug Use History: None Reported - Past Family History Mother Family Medical History: Osteoarthritis (OA) Father Family Medical History: CVA/TIA Sister(s) Family Medical History: Cancer Additional Family Medical History / Comment(s): ovarian, colorectal, lung Brother(s) Family Medical History: Cancer Additional Family Medical History / Comment(s): brain Medications and Allergies Home Medications Medication Instructions Recorded Confirmed Type Omeprazole 20 mg PO DAILY 02/15/18 05/31/20 History Cyanocobalamin [Vitamin B-12] 500 mcg PO DAILY 02/27/18 05/31/20 History Potassium Chloride [Klor-Con 10] 10 meq PO DAILY 02/27/18 05/31/20 History Calcium Carbonate/Vitamin D3 1 tab PO HS 01/23/20 05/31/20 History [Caltrate 600 Plus D3 Tablet] Furosemide [Lasix] 20 mg PO DAILY 01/23/20 05/31/20 History Glucosamine/Chondr Kim A Sod [Osteo 1 tab PO BID 01/23/20 05/31/20 History Bi-Flex Caplet] Albuterol Inhaler [Ventolin Hfa 2 puff INHALATION RT-Q4H PRN 05/31/20 05/31/20 History Inhaler] Albuterol Nebulized [Ventolin 2.5 mg INHALATION RT-Q4H PRN 05/31/20 05/31/20 History Nebulized] Apixaban [Eliquis] 5 mg PO BID 05/31/20 05/31/20 History HYDROcodone/APAP 10-325MG [[place] 1 tab PO Q6H PRN 05/31/20 05/31/20 History 10-325] Metoprolol Tartrate [Lopressor] 75 mg PO BID 05/31/20 05/31/20 History Ondansetron [Zofran] 4 mg PO Q6H PRN 05/31/20 05/31/20 History Turmeric Root Extract [Turmeric] 1,000 mg PO DAILY 05/31/20 05/31/20 History predniSONE 20 mg PO DAILY 05/31/20 05/31/20 History Allergies Allergy/AdvReac Type Severity Reaction Status Date / Time No Known Allergies Allergy Verified 05/31/20 17:19 Physical Exam Vitals: Vital Signs Temp Pulse Pulse Resp BP BP Pulse Ox 06/01/20 11:27 92 06/01/20 11:14 92 06/01/20 07:29 88 06/01/20 07:16 92 06/01/20 07:00 98.1 F 92 18 132/86 95 06/01/20 00:45 98.6 F 92 20 134/79 94 L 05/31/20 20:23 95 05/31/20 20:06 98 05/31/20 19:00 97.9 F 104 H 22 131/83 98 05/31/20 18:25 98.1 F 77 20 140/80 96 05/31/20 17:39 92 05/31/20 17:31 92 05/31/20 16:38 98.3 F 86 22 139/85 95 05/31/20 14:35 98.6 F 105 H 18 143/79 98 Intake and Output 05/31/20 06/01/20 06/01/20 22:59 06:59 14:59 Intake Total 200 0 Output Total 100 Balance 100 0 Intake: Oral 200 0 Output: Urine/Stool Mix 100 Other: # Voids 1 1 # Bowel Movements 1 Weight 102.058 kg Gen. appearance the patient is calm and comfortable nonacute distress Head exam was generally normal. There was no scleral icterus or corneal arcus. Mucous membranes were moist. Neck was supple and without jugular venous distension, thyromegaly, or carotid bruits. Carotids were easily palpable bilaterally. There was no adenopathy. Lungs sounds are diminished in lung bases worse on the right compared to the left. There is also bibasilar crackles. Cardiac exam revealed the PMI to be normally situated and sized. The rhythm was irregular and no extrasystoles were noted during several minutes of auscultation. The first and second heart sounds were normal and physiologic splitting of the second heart sound was noted. There were no murmurs, rubs, clicks, or gallops. Abdominal exam revealed normal bowel sounds. The abdomen was soft, non-tender, and without masses, organomegaly, or appreciable enlargement of the abdominal aorta. Examination of the extremities revealed easily palpable radial, femoral and ped al pulses. There was no cyanosis, clubbing or edema. Examination of the skin revealed no evidence of significant rashes, suspicious appearing nevi or other concerning lesions. Neurologically, the patient is awake and alert and the patient does not have any focal neurological deficit. Cranial nerves are essentially intact. Results - Laboratory Findings CBC and BMP: 06/01/20 05:38 06/01/20 05:38 PT/INR, D-dimer PT 11.8 sec (9.0-12.0) 05/31/20 15:40 INR 1.2 (<1.2) H 05/31/20 15:40 Abnormal lab findings: Abnormal Labs 05/31/20 05/31/20 05/31/20 15:40 15:40 15:40 Hgb Hct Lymphocytes # 0.9 L INR 1.2 H Chloride 108 H Creatinine 1.22 H Est GFR (CKD-EPI)AfAm Est GFR (CKD-EPI)NonAf Glucose 124 H Calcium Iron TIBC Ferritin Total Protein 6.2 L Albumin 3.4 L Cortisol 05/31/20 06/01/20 06/01/20 15:42 05:38 05:38 Hgb 10.6 L Hct 33.4 L Lymphocytes # INR Chloride Creatinine Est GFR (CKD-EPI)AfAm 54.5 L Est GFR (CKD-EPI)NonAf 47.0 L Glucose Calcium 8.3 L Iron 47 L TIBC 218 L Ferritin 330.8 H Total Protein 4.9 L Albumin 3.30 L Cortisol 23.5 H - Diagnostic Findings Chest x-ray: image reviewed Assessment and Plan Plan: 1 acute GI bleeding, likely of a lower GI source with resident blood per rectum. Awaiting colonoscopy in a.m. The patient be taken off Eliquis for now. Drop in hemoglobin is minimal at this point in time and the patient's hemoglobin remains above 10 2 metastatic adenocarcinoma of the lung with evidence of skeletal metastases, spine metastases and brain metastases. The patient has a radiation therapy for palliative reasons to the bone, spine and the brain. 3 COPD 4 worsening shortness of breath. The patient has a low bilateral pleural effusion right more than left in addition to interstitial edema. The proBNP level is elevated and the patient obviously may be in a component of CHF. Nevertheless, the chest x-ray and a previous PET scan shows evidence of ongoing malignancy. The patient has ongoing increased uptake in the right lung and other metastatic deposits in the right upper lobe and the left lower lobe is also seen. The pleural effusion could be potentially related to CHF. Although the possibility of malignant pleural effusion cannot be completely excluded this point in time. We'll subject the patient to some diuresis. 5 chronic atrial fibrillation 6 hypertension 7 hyperlipidemia 8 acid reflux 9 osteoarthritis 10 receiving immunotherapy with Opdivo. Plan Hold anticoagulation for now Continue prednisone as given to her by her oncologist regarding the possibility of immunotherapy related toxicity. She was taking prednisone 20 mg as an outpatient basis and this will be continued IV Fluids to KVO Cut down the IV fluids to KVO May need to have a echocardiogram and more aggressive diuresis following the completion of the GI workup and resolution of the GI bleed May consider a thoracentesis of right lung atelectasis stage Awaiting the official results of the PET scan regarding immunotherapy related to progression of lung cancer Long-term prognosis poor baseline above-mentioned comorbidities. The patient has metastatic lung cancer/adenocarcinoma which carries a very poor prognosis.
--- NOTE | 2020-06-01 13:43 | CONS ---
CONSULTATION DATE OF DICTATION: June 01, 2020. REASON FOR CONSULTATION: Rectal bleeding for the last 5 days duration. HISTORY OF PRESENT ILLNESS: The patient is an 79-year-old pleasant white female admitted to hospital with rectal bleeding for the last 5 days duration. She has been having about 2 or 3 episodes on a daily basis, bright red blood per rectum and yesterday she thought the bleeding was much more intense and hence came to the emergency room and subsequently admitted to the hospital for further evaluation. She has atrial fibrillation and has been on Eliquis, which she stopped yesterday. This morning she had only one small bowel movement of rectal bleeding. She recalls having a colonoscopy about 5 or 6 years ago that was unremarkable. She was diagnosed with metastatic lung cancer in January of this year and subsequently underwent radiation therapy to her brain and presently on immunotherapy. She follows with Dr. Prado on an outpatient basis. PAST MEDICAL HISTORY: Significant for metastatic lung cancer, for which she follows with Dr. Kumar closely and on immunotherapy, history of atrial fibrillation on Eliquis, currently on hold, gastroesophageal reflux disease, hypertension, hyperlipidemia, degenerative joint disease. PAST SURGICAL HISTORY: Cholecystectomy, hysterectomy, left knee replacement. MEDICATIONS: Medications at home include omeprazole, vitamin B12, potassium chloride, Lasix, glucosamine, albuterol inhaler, Eliquis, metoprolol, [place], Zofran, prednisone, Lopressor. ALLERGIES: None. SOCIAL HISTORY: Former smoker. No alcohol use. FAMILY HISTORY: Mother has osteoarthritis. Father has CVA and TIA and sister had ovarian cancer. REVIEW OF SYSTEMS: CARDIOPULMONARY: No chest pain or shortness of breath. : No dysuria or hematuria. MUSCULOSKELETAL: Complains of some knee pain. NEUROLOGY unremarkable. PSYCHIATRIC unremarkable. ENT/VISION: Unremarkable. CONSTITUTIONAL: No recent weight loss. No fever, chills, night sweats. HEMATOLOGY: Mild anemia. ONCOLOGY: Metastatic breast cancer as described above. PHYSICAL EXAMINATION: She appears comfortable. VITAL SIGNS: Stable. Blood pressure is 149/79, pulse rate 88, and temperature 98.1 HEENT examination unremarkable. Conjunctivae pink. Sclerae anicteric. Oral cavity no lesions. NECK no JVD or lymph node enlargement. CHEST was clear to auscultation. HEART: Regular rate and rhythm. ABDOMEN: Soft. Bowel sounds are positive. No organomegaly. EXTREMITIES: No pedal edema. SKIN no rashes. NEURO: She is alert and oriented x3. No focal deficits. LABS: WBC 5.7, hemoglobin 10.6, platelets 244. BUN and creatinine of 14 and 1.1 respectively. Yesterday hemoglobin was 12. INR is 1.2. IMPRESSION: 1. Rectal bleeding for the last 5 days duration. She has been having bright red blood per rectum for the last 5 days. However, in the past she was constipated because of [place] but she has been taking laxatives and she has no constipation in the last 3 weeks. She denies straining at stool. She dropped hemoglobin from 12-10.6 g/dL. Eliquis currently is on hold. She had some rectal bleeding this morning. Last colonoscopy was more than 5 years ago and according to the patient it was within normal limits. 2. Metastatic lung cancer presently on immunotherapy. Last dose was 2 weeks ago recommendations. 3. Atrial fibrillation on Eliquis, currently on hold. RECOMMENDATIONS: I had a lengthy discussion with the patient regarding further workup of rectal bleeding at this time. I gave her an option of having a colonoscopy done versus conservative approach and hold Eliquis for now. After discussing risks, benefits and complications, she elected to proceed with colonoscopy tomorrow. In the meantime, we will start her on clear liquid diet. Monitor CBC on a daily basis. Continue to hold Eliquis and schedule the patient for colonoscopy tomorrow. Thank you for this consultation. MICKEY / JULIO CÉSAR: [phone] /
[2020-06-01] MEDS ORDERED: PEG 3350-NA SULF,BICARB,CL/KCL 4,000 ML BOTTLE PO ONE (17:00)
[2020-06-01] MEDS: ZOLPIDEM 5 MG TAB PO PRN (23:46)
[2020-06-02] MEDS: SODIUM CHLORIDE 0.9% 1,000 ML IV SCH (00:07)
[2020-06-02] MEDS: MORPHINE SULFATE 4 MG/ML SYRINGE IV PRN (03:04)
[2020-06-02 06:08] LABS: Basophils # (A) 0.1 k/uL (0-0.2); Basophils % (A) 1 %; Eosinophils # (A) 0.7 k/uL (0-0.7); Eosinophils % (A) 8 %; HCT 38.1 % (34.0-46.0); HGB 12.1 gm/dL (11.4-16.0); Lymphocytes # (A) 1.4 k/uL (1.0-4.8); Lymphocytes % (A) 16 %; MCHC 31.7 g/dL (31.0-37.0); MCV 85.1 fL (80.0-100.0); Mean Platelet Volume 6.6; Monocytes # (A) 0.8 k/uL (0-1.0); Monocytes % (A) 9 %; Neutrophils # (A) 5.8 k/uL (1.3-7.7); Neutrophils % (A) 65 %; Platelet Count 275 k/uL (150-450); RBC 4.48 m/uL (3.80-5.40); RDW 14.7 % (11.5-15.5)
[2020-06-02] MEDS: IPRATROPIUM-ALBUTEROL 3 ML NEB INHALATION SCH ×4 (07:31→19:19)
[2020-06-02] MEDS: PANTOPRAZOLE 40 MG/10 ML VIAL IV SCH (09:03)
[2020-06-02] MEDS: METOPROLOL TARTRATE 25 MG TAB PO SCH ×2 (09:03→22:13)
[2020-06-02] MEDS ORDERED: PROPOFOL 10 MG/ML 20 ML VIAL IV ONE (10:01)
[2020-06-02] MEDS ORDERED: LACTATED RINGERS 1,000 ML IV ONE ×2 (10:08)
[2020-06-02 10:12] LABS: African American GFR (CKD) 61.2 (60.0-200.0); Calcium 8.4 mg/dL (8.7-10.3); Non-African American GFR(CKD) 52.8 (60.0-200.0); Potassium 3.6 mmol/L (3.5-5.5)
--- NOTE | 2020-06-02 10:34 | P.PCN ---
Date of Procedure: 06/02/20 Description of Procedure: BRIEF HISTORY: Patient is a 79-year-old female who presented to the hospital with painless bright red blood per rectum. Patient reports last colonoscopy 5-6 years ago. She is on anticoagulation therapy with Eliquis. PROCEDURE PERFORMED: Colonoscopy with polypectomy. PREOPERATIVE DIAGNOSIS: Rectal hemorrhage, lower GI bleed, she reports last colonoscopy 5-6 years ago. ESTIMATED BLOOD LOSS: Minimal. IV sedation per Anesthesia. PROCEDURE: After informed consent was obtained, the patient, was brought into the endoscopy unit. IV sedation was administered by Anesthesia under continuous monitoring. Digital rectal examination was normal. Initially the Olympus CF-190 flexible video colonoscope was then inserted in the rectum, gradually advanced into the cecum without any difficulty. Careful examination was performed as the scope was gradually being withdrawn. Ileocecal valve and the appendiceal orifice were visualized and appeared normal. Prep was excellent. Mucosa of the cecum, ascending colon, transverse colon, descending colon, sigmoid colon, and rectum appeared normal. A few scattered diverticula noted in the sigmoid colon. Moderate grade internal hemorrhoids noted. Diminutive 2 mm sigmoid polyp removed with cold forcep polypectomy. Retroflexion was performed in the rectum and no lesions were seen. The patient tolerated the procedure well. IMPRESSION: Moderate internal hemorrhoids. Mild sigmoid diverticulosis. Diminutive sigmoid polyp removed with cold forceps. RECOMMENDATIONS: Findings of this examination were discussed with the patient and her son. Okay to resume diet. Okay to resume medications. Anusol rectal added for local hemorrhoidal care. Okay for discharge when otherwise medically stable.
[2020-06-02] MEDS: FUROSEMIDE 20 MG TAB PO SCH ×2 (11:09→15:40)
[2020-06-02] MEDS: CYANOCOBALAMIN 500 MCG TAB PO SCH (11:09)
[2020-06-02] MEDS: predniSONE 20 MG TAB PO SCH (11:09)
[2020-06-02] MEDS: POTASSIUM CITRATE 10 MEQ TABLET.ER PO SCH (11:10)
--- NOTE | 2020-06-02 11:24 | P.PN ---
Subjective Progress Note Date: 06/02/20 Principal diagnosis: bright red blood per rectum. Metastatic lung cancer to the bones and the brain. Patient is back in her room postprocedure, cold but very happy to have something to drink. The nausea and vomiting is better, weakness is persistent, she continues on her steroid that was started due to suspicions for immunotherapy type side effect. Her anticoagulation was held her procedure, her CBC remains stable today. Patient denies any other complaints at this time. Objective - Vital Signs Vital signs: Vital Signs Temp 98.0 F 06/02/20 07:00 Pulse 90 06/02/20 07:48 Resp 16 06/02/20 07:00 BP 136/84 06/02/20 07:00 Pulse Ox 94 L 06/02/20 07:00 Intake & Output 06/01/20 06/02/20 06/02/20 18:59 06:59 18:59 Intake Total 200 150 Balance 200 150 Intake: IV 150 Oral 200 Other: # Voids 3 1 # Bowel Movements 1 - Constitutional General appearance: Present: cooperative, obese - EENT Eyes: Present: anicteric sclerae, EOMI ENT: Present: hearing grossly normal - Respiratory Respiratory: bilateral: CTA - Cardiovascular Heart sounds: normal: S1, S2 - Peripheral edema leg Peripheral Edema: bilateral: None - Gastrointestinal General gastrointestinal: Present: soft - Integumentary Integumentary: Present: pale - Musculoskeletal Musculoskeletal: Present: generalized weakness - Psychiatric Psychiatric: Present: A&O x's 3, appropriate affect, intact judgment & insight - Labs CBC & Chem 7: 06/02/20 05:16 06/02/20 05:16 Labs: Abnormal Lab Results - Last 24 Hours (Table) 05/31/20 06/02/20 Range/Units 15:42 05:16 Est GFR (CKD-EPI)NonAf 52.8 L (60.0-200.0) BUN/Creatinine Ratio 11.00 L (12.00-20.00) Ratio Calcium 8.4 L (8.7-10.3) mg/dL Cortisol 23.5 H (3.10-22.40) ug/dL - Imaging and Cardiology operative report reviewed Assessment and Plan (1) BRBPR (bright red blood per rectum) Narrative/Plan: patient is status post EGD and colonoscopy, small polyp removed, diverticulosis and some internal hemorrhoids. local treatment per Gastroenterology. Current Visit: Yes Status: Acute Priority: High Code(s): K62.5 - HEMORRHAGE OF ANUS AND RECTUM SNOMED Code(s): 27284045 (2) Adenocarcinoma of lung, stage 4 Narrative/Plan: Patient has received radiation to brain and bone metastases, doing well from that standpoint. Patient has been on immunotherapy but was recently placed on steroids for suspected immunotherapy side effects when patient presented with complaints of nausea, vomiting, progressive fatigue. There was concern for adrenal insufficiency. Patient's symptoms are stable but necessarily improved. Plan is at this time for patient to continue on tapering steroids, she has a prescription at home. She will be followed up in the office. Her appointment with Dr. Kumar is documented in the discharge Current Visit: Yes Status: Chronic Priority: Medium Code(s): C34.90 - MALIGNANT NEOPLASM OF UNSP PART OF UNSP BRONCHUS OR LUNG SNOMED Code(s): 464382007
--- NOTE | 2020-06-02 12:27 | P.PN ---
Subjective Progress Note Date: 06/02/20 Principal diagnosis: Dyspnea This patient has metastatic adenocarcinoma of the lung. She is well-known to me. I was involved in her original diagnosis. At that time the patient came in for an abnormal lung mass and the CAT scan of the chest showed a 4 cm cavitating lesion the right lower lobe along with enlarged hilar lymph nodes and the PET scan furthermore showed increased uptake within the right lower lobe mass, hilar lymph nodes, subcarinal lymph nodes and multiple bony lesions involving her hips. The patient underwent a CT-guided biopsy of the left iliac bone and shirt turner to be adenocarcinoma lung primary. 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 The patient was given radiation therapy to the hips, brain and cervical spine on 03/07/2020 and the patient was started on a combination of Yervoy?Opdivo under the care of Dr. Kumar and the patient has been receiving immunotherapy every 2 weeks. At one point she started getting sicker including diminished appetite and poor drinking and diminished urine output. She was getting also progressively more tired and occasionally was having nausea and vomiting and this was considered to be related to the immunotherapy treatment. She did not have any adrenal insufficiency. She did not have any pneumonitis. She came into the hospital yesterday because of worsening shortness of breath and as stated that she was having rectal bleeding. She was developing some constipation with narcotics that she was taking for pain control. She still some bright red blood per rectum. Her previous colonoscopy was done many years back. That hemoglobin dropped down to 10.6 from a baseline of 12.3.. The patient has chronic atrial fibrillation. She was taken anticoagulation form of Eliquis and this was placed on hold. Her chest x-ray shows CHF with cardiomegaly and increased interstitial edema right more than left pleural effusion in addition to that there was a new patchy left basilar infiltrate/atelectasis in addition to atelectatic changes in the right midlung and right posterior lung area. The patient's proBNP level was 10,600. TSH was at 2.01. Serum cortisol was 23.5. Serum iron was low at 47. Creatinine was 1.2 and subsequently down to 1.1. Correlation profile is within normal limits. The patient is scheduled to have a colonoscopy tomorrow. On 06/02/2020 patient seen in follow-up on the general medical surgical floor. She is awake and alert, in no acute distress, currently on 2 L of oxygen her pulse ox is 94%, her lung sounds reveal some bibasilar crackles, the chest x-ray shows interstitial edema and right hilar mass. She received a dose of IV Lasix yesterday, she is on maintenance dose of oral Lasix at 20 mg daily. Fluid balance is difficult to estimate, weight appears to be stable, she does not appear to be in any type of respiratory distress, patient is status post colonoscopy with polypectomy showed moderate internal hemorrhoids, mild sigmoid diverticulosis, and diminutive sigmoid polyp removed with cold forceps. Hemoglobin is 12.1 on today's labs, there has been no active bleeding overnight. Objective - Vital Signs Vital signs: Vital Signs Temp 98.0 F 06/02/20 07:00 Pulse 89 06/02/20 11:42 Resp 16 06/02/20 07:00 BP 136/84 06/02/20 07:00 Pulse Ox 94 L 06/02/20 07:00 Intake & Output 06/01/20 06/02/20 06/02/20 18:59 06:59 18:59 Intake Total 200 150 Balance 200 150 Intake: IV 150 Oral 200 Other: # Voids 3 1 # Bowel Movements 1 - Exam GENERAL EXAM: Alert, very pleasant, 79-year-old white female, on 2 L of oxygen, resting comfortably in bed with her son at the bedside comfortable in no apparent distress. HEAD: Normocephalic/atraumatic. EYES: Normal reaction of pupils, equal size. Conjunctiva pink, sclera white. NOSE: Clear with pink turbinates. THROAT: No erythema or exudates. NECK: No masses, no JVD, no thyroid enlargement, no adenopathy. CHEST: No chest wall deformity. Symmetrical expansion. LUNGS: Equal air entry with no crackles, wheeze, rhonchi or dullness. CVS: Regular rate and rhythm, normal S1 and S2, no gallops, no murmurs, no rubs ABDOMEN: Soft, nontender. No hepatosplenomegaly, normal bowel sounds, no guarding or rigidity. EXTREMITIES: No clubbing, no edema, no cyanosis, 2+ pulses and upper and lower extremities. MUSCULOSKELETAL: Muscle strength and tone normal. SPINE: No scoliosis or deformity SKIN: No rashes CENTRAL NERVOUS SYSTEM: Alert and oriented -3. No focal deficits, tone is normal in all 4 extremities. PSYCHIATRIC: Alert and oriented -3. Appropriate affect. Intact judgment and insight. - Labs CBC & Chem 7: 06/02/20 05:16 06/02/20 05:16 Labs: Abnormal Lab Results - Last 24 Hours (Table) 06/02/20 Range/Units 05:16 Est GFR (CKD-EPI)NonAf 52.8 L (60.0-200.0) BUN/Creatinine Ratio 11.00 L (12.00-20.00) Ratio Calcium 8.4 L (8.7-10.3) mg/dL Assessment and Plan Plan: Assessment: 1 acute GI bleeding, likely of a lower GI source with resident blood per rectum. The patient be taken off Eliquis for now. Drop in hemoglobin is minimal at this point in time and the patient's hemoglobin remains above 10. Status post colonoscopy today which showed mild sigmoid diverticulosis, and diminutive sigmoid polyp removed with cold forceps 2 metastatic adenocarcinoma of the lung with evidence of skeletal metastases, spine metastases and brain metastases. The patient has a radiation therapy for palliative reasons to the bone, spine and the brain. 3 COPD 4 worsening shortness of breath. The patient has a low bilateral pleural effusion right more than left in addition to interstitial edema. The proBNP level is elevated and the patient obviously may be in a component of CHF. Nevertheless, the chest x-ray and a previous PET scan shows evidence of ongoing malignancy. The patient has ongoing increased uptake in the right lung and other metastatic deposits in the right upper lobe and the left lower lobe is also seen. The pleural effusion could be potentially related to CHF. Although the possibility of malignant pleural effusion cannot be completely excluded this point in time. We'll subject the patient to some diuresis. 5 chronic atrial fibrillation 6 hypertension 7 hyperlipidemia 8 acid reflux 9 osteoarthritis 10 receiving immunotherapy with Opdivo. Plan: Continue current medical treatment, we'll increase the patient's maintenance dose of Lasix to 20 mg twice daily, patient is in no acute distress, no active bleeding overnight, results of colonoscopy were noted. Today's labs have been reviewed. From pulmonary perspective patient can be considered for discharge out of the hospital with follow-up with medical oncology and GI service, she's had no active bleeding overnight, hemoglobin is stable, over 10, will defer to GI service to restart her Eliquis. I performed a history & physical examination of the patient and discussed their management with my nurse practitioner, Fide Quesada. I reviewed the nurse practitioner's note and agree with the documented findings and plan of care. Lung sounds are positive for minimal bibasilar crackles The findings and the impression was discussed with the patient. I attest to the documentation by the nurse practitioner. Time with Patient: Less than 30
--- NOTE | 2020-06-02 13:40 | P.PN ---
Subjective Progress Note Date: 06/02/20 (Rectal bleeding, hemorrhoid, removed, tiny polyp) Progress note date of service 06/02/2020 Patient is conscious alert oriented 3 Status post colonoscopy, with the underlying hemo-right internal, small tiny polyp removed, no active bleeding, with a pot probability elliquis normal anticoagulant and the because the bleeding excessively with 2 g loss will cut down the and requests to 2.5 mg twice a day, until seen in the future by the oncologist or the air carrier operations inspector Dr. NAYLA Kang. Also and has history of shortness of breath and with the IV as well as chest x-ray indicating possible congestive heart failure could be diastolic in nature echocardiogram was ordered result is pending. Seen by Dr. Sandra pulmonary and critical care and he increased her Lasix to twice a day. He did not indicate any evidence of pneumonia with more of congestive heart failure. We'll be waiting for the results of the echocardiogram to clarify the issue of diastolic or systolic. Acute or chronic. Patient has adenocarcinoma of the right lung stage IV. And also had atrial fibrillation paroxysmal as well. And probably hemoglobin 2 g. And mild hypoxemia Plan We'll be plan for ambulation and check the pulse ox if she desaturated. On exam She is conscious alert oriented 3 HEENT was negative except paler of the con junctiva and she had a dentures upper and lower. Neck was supple no JVD no thyromegaly no lymphadenopathy trachea midline. Chest was has underlying basilar rales. And Dr. Sandra did increase her Lasix to twice a day. Heart atrial fibrillation with the possibility of mild diastolic congestive heart failure associated with shortness of breath. Abdomen soft positive bowel sounds Payless no tenderness with the underlying hemorrhoid was bleeding per rectum Extremities she had mild edema 1+ has been resolved with the diuresis. Neurologically stable no lateralizing sign no effect on the cranial nerve Patient stable general condition except for starting her Elliquis tonight and continue twice a day with decrease the dose to 2.5 and ambulate check the oxygen and to see if the patient the bleeding again or not and hopefully tomorrow we can discharge patient home if stable with the above. Also the echocardiogram result is not available yet for adjustment of her medication. With the assessment rectal bleeding and adenocarcinoma of the right long stage IV. Generalized weakness. With the drop of hemoglobin almost 2 g due to hemorrhoid. And the polyp was removed which was small. For further plan depends on the patient condition with a planning for discharge home tomorrow. . Objective - Vital Signs Vital signs: Vital Signs Temp 98.0 F 06/02/20 07:00 Pulse 89 06/02/20 11:42 Resp 16 06/02/20 07:00 BP 136/84 06/02/20 07:00 Pulse Ox 94 L 06/02/20 07:00 Intake & Output 06/01/20 06/02/20 06/02/20 18:59 06:59 18:59 Intake Total 200 150 Balance 200 150 Intake: IV 150 Oral 200 Other: # Voids 3 1 # Bowel Movements 1 - Labs CBC & Chem 7: 06/02/20 05:16 06/02/20 05:16 Labs: Abnormal Lab Results - Last 24 Hours (Table) 06/02/20 Range/Units 05:16 Est GFR (CKD-EPI)NonAf 52.8 L (60.0-200.0) BUN/Creatinine Ratio 11.00 L (12.00-20.00) Ratio Calcium 8.4 L (8.7-10.3) mg/dL
--- NOTE | 2020-06-02 18:34 | ECHOF ---
Referral Reason:atrial fib .htnurgency,tia MEASUREMENTS -------- HEIGHT: 172.7 cm WEIGHT: 102.1 kg BP: 131/81 IVSd: 1.1 cm (0.6 - 1.1) LVIDd: 3.9 cm (3.9 - 5.3) LVPWd: 1.2 cm (0.6 - 1.1) IVSs: 2.0 cm LVIDs: 2.6 cm LVPWs: 1.5 cm LA Diam: 3.8 cm (2.7 - 3.8) RVIDd: 3.6 cm (< 3.3) LAESV Index (A-L): 30.82 ml/m Ao Diam: 3.5 cm (2.0 - 3.7) AV Cusp: 2.2 cm (1.5 - 2.6) EPSS: 0.3 cm RAP: 5.00 mmHg RVSP: 37.23 mmHg MV EF SLOPE: 128.33 mm/s (70 - 150) MV EXCURSION: 21.17 mm (> 18.000) FINDINGS -------- Atrial fibrillation. This was a technically good study. The left ventricular size is normal. There is borderline concentric left ventricular hypertrophy. Overall left ventricular systolic function is normal with, an EF between 60 - 65 %. The right ventricle is mildly enlarged. LA is midly dilated 29-33ml/m2. The right atrium is normal in size. Interatrial and interventricular septum intact. There is mild aortic valve sclerosis. There is mild aortic regurgitation. The mitral valve leaflets are mildly thickened. There is trace to mild mitral regurgitation. Mild tricuspid regurgitation present. There is mild pulmonary hypertension. The right ventricular systolic pressure, as measured by Doppler, is 37.23mmHg. Trace/mild (physiologic) pulmonic regurgitation. The aortic root size is normal. Normal inferior vena cava with normal inspiratory collapse consistent with estimated right atrial pre ssure of 5 mmHg. There is no pericardial effusion. CONCLUSIONS -------- 1. The left ventricular size is normal. 2. There is borderline concentric left ventricular hypertrophy. 3. Overall left ventricular systolic function is normal with, an EF between 60 - 65 %. 4. The right ventricle is mildly enlarged. 5. LA is midly dilated 29-33ml/m2. 6. There is mild aortic valve sclerosis. 7. There is mild aortic regurgitation. 8. The mitral valve leaflets are mildly thickened. 9. There is trace to mild mitral regurgitation. 10. Mild tricuspid regurgitation present. 11. There is mild pulmonary hypertension. 12. The right ventricular systolic pressure, as measured by Doppler, is 37.23mmHg. 13. Trace/mild (physiologic) pulmonic regurgitation. 14. There is no pericardial effusion. PHYSICIAN ALLERGIST IMMUNOLOGIST: Yanni Ang RDCS
[2020-06-02] MEDS: ZOLPIDEM 5 MG TAB PO PRN (22:13)
[2020-06-02] MEDS: APIXABAN 2.5 MG TABLET PO SCH (22:14)
[2020-06-03] MEDS ORDERED: PANTOPRAZOLE 40 MG TABLET PO SCH (07:30)
[2020-06-03] MEDS: APIXABAN 2.5 MG TABLET PO SCH (08:18)
[2020-06-03] MEDS: CYANOCOBALAMIN 500 MCG TAB PO SCH (08:19)
[2020-06-03] MEDS: predniSONE 20 MG TAB PO SCH (08:19)
[2020-06-03] MEDS: POTASSIUM CITRATE 10 MEQ TABLET.ER PO SCH (08:19)
[2020-06-03] MEDS: FUROSEMIDE 20 MG TAB PO SCH (08:19)
[2020-06-03] MEDS: IPRATROPIUM-ALBUTEROL 3 ML NEB INHALATION SCH ×2 (08:57→12:22)
[2020-06-03] MEDS ORDERED: METOPROLOL SUCCINATE (ER) 25 MG TAB.ER.24H PO SCH (09:00)
[2020-06-03] MEDS ORDERED: HYDROCORTISONE SUPPOSITORY 25 MG SUPP RECTAL SCH (09:00)
--- NOTE | 2020-06-03 12:22 | P.PN ---
Subjective Progress Note Date: 06/03/20 Principal diagnosis: bright red blood per rectum. Metastatic lung cancer to the bones and the brain. Patient is seen ambulating in the halls today. She is able to walk with a wa lker and standby assist. She is requiring oxygen for respiratory comfort, O2 saturations in the low 80s off oxygen. She has had no further bright red blood per rectum at this time. She has been resumed on her anticoagulant. Her hemoglobin remained stable. Objective - Vital Signs Vital signs: Vital Signs Temp 98 F 06/03/20 07:40 Pulse 92 06/03/20 09:09 Resp 16 06/03/20 07:40 BP 128/85 06/03/20 07:40 Pulse Ox 93 L 06/03/20 07:40 Intake & Output 06/02/20 06/03/20 06/03/20 18:59 06:59 18:59 Intake Total 150 Balance 150 Intake: IV 150 Other: Voiding Method Toilet # Voids 1 2 - Constitutional General appearance: Present: cooperative, no acute distress, obese - EENT Eyes: Present: anicteric sclerae, EOMI ENT: Present: hearing grossly normal - Respiratory Respiratory: bilateral: CTA - Cardiovascular Heart sounds: normal: S1, S2 - Peripheral edema leg Peripheral Edema: bilateral: None - Gastrointestinal General gastrointestinal: Present: normal bowel sounds, soft - Integumentary Integumentary: Present: normal - Neurologic Neurologic: Present: CNII-XII intact - Musculoskeletal Musculoskeletal: Present: strength equal bilaterally - Psychiatric Psychiatric: Present: A&O x's 3, appropriate affect, intact judgment & insight - Labs CBC & Chem 7: 06/02/20 05:16 06/02/20 05:16 Assessment and Plan (1) BRBPR (bright red blood per rectum) Narrative/Plan: Patient is status post EGD and colonoscopy, small polyp removed, diverticulosis and some internal hemorrhoids. Local treatment per Gastroenterology. We reviewed strategies to keep the stool soft, including daily use of stool softeners. Patient complains of constipation and nausea secondary to pain pills. We discussed the option of Tylenol as analgesic. Patient states that she has been using 2 Aleve every day. Explained to patient the increased risk for bleeding with NSAID use. Her platelet and kidney function though, is adequate for the same. She was explained to use with caution and to monitor for any bleeding. She verbalized understanding NSAIDs, risks and proper use. Current Visit: Yes Status: Acute Priority: High Code(s): K62.5 - HEMORRHAG E OF ANUS AND RECTUM SNOMED Code(s): 53166448 (2) Adenocarcinoma of lung, stage 4 Narrative/Plan: Patient has received radiation to brain and bone metastases, doing well from that standpoint. Patient has been on immunotherapy but was recently placed on steroids for suspected immunotherapy side effects when patient presented with complaints of nausea, vomiting, progressive fatigue. There was concern for adrenal insufficiency. Patient's symptoms are improved. Plan is at this time for patient to continue on tapering steroids, she has a prescription at home. She will be followed up in the office. Her appointment with Dr. Kumar is documented in the discharge. Current Visit: Yes Status: Chronic Priority: Medium Code(s): C34.90 - MALIGNANT NEOPLASM OF UNSP PART OF UNSP BRONCHUS OR LUNG SNOMED Code(s): 148667857
[2020-06-03] MEDS ORDERED: ALBUTEROL NEBULIZED 2.5 MG/3 ML INHALATION PRN (13:10)
[2020-06-03] MEDS ORDERED: METOPROLOL TARTRATE 50 MG TAB PO SCH (13:15)
--- NOTE | 2020-06-03 13:32 | P.PN ---
Subjective Progress Note Date: 06/03/20 Principal diagnosis: Rectal bleeding This patient is a pleasant 79-year-old female who was admitted to the hospital with complaints of rectal bleeding for the past 5 days duration. She was having about 2-3 episodes on a daily basis prewrap per rectum. She has a history of atrial fibrillation and has been on Eliquis which was stopped on admission. Yesterday she underwent a colonoscopy and needs that included moderate internal hemorrhoids mild sigmoid diverticulosis, and diminutive sigmoid polyp. The patient denies any bowel movement today. She denies any rectal bleeding, nausea, vomiting, or abdominal pain. Objective - Vital Signs Vital signs: Vital Signs Temp 98 F 06/03/20 07:40 Pulse 92 06/03/20 09:09 Resp 16 06/03/20 07:40 BP 128/85 06/03/20 07:40 Pulse Ox 93 L 06/03/20 07:40 Intake & Output 06/02/20 06/03/20 06/03/20 18:59 06:59 18:59 Intake Total 150 Balance 150 Intake: IV 150 Other: Voiding Method Toilet # Voids 1 2 - Exam General appearance: The patient is alert, oriented, in no acute distress. HET: Head is normocephalic and atraumatic. Conjunctiva pink. Sclera anicteric. Neck: Supple without lymphadenopathy. Abdomen: Soft, nontender, nondistended with bowel sounds. No palpable organomegaly. Guarding or rigidity. Extremities: Normal skin color and turgor. No Pedal edema. Neurological: No focal deficits. Alert and oriented 3. - Labs CBC & Chem 7: 06/02/20 05:16 06/02/20 05:16 Assessment and Plan (1) BRBPR (bright red blood per rectum) Narrative/Plan: Rectal bleeding for the last 5 days duration, however in the past she has complained of constipation because of [place]. She states she has been taking laxatives for the last 3 weeks and has not had any constipation. She denies straining at stool. Residual drop in hemoglobin from 12 to 10.6. Eliquis is currently on hold. Her last colonoscopy was more than 5 years ago and according to the patient was within normal limits. She underwent a colonoscopy this admission showing moderate internal hemorrhoids, mild sigmoid diverticulosis, and a diminutive sigmoid polyp with removal. Current Visit: Yes Status: Acute Priority: High Code(s): K62.5 - HEMORRHAGE OF ANUS AND RECTUM SNOMED Code(s): 16489030 (2) Atrial fibrillation Narrative/Plan: On Eliquis, currently on hold. Current Visit: Yes Status: Acute Code(s): I48.91 - UNSPECIFIED ATRIAL FIBRILLATION SNOMED Code(s): 89709670 (3) Adenocarcinoma of lung, stage 4 Narrative/Plan: Presently on immunotherapy. Last dose was 2 weeks ago. Current Visit: Yes Status: Chronic Priority: Medium Code(s): C34.90 - MALIGNANT NEOPLASM OF UNSP PART OF UNSP BRONCHUS OR LUNG SNOMED Code(s): 209952821 Plan: Initially Dr. Shepard had a lengthy discussion with the patient regarding options which included colonoscopy versus conservative approach in holding [facility]. After discussing risks benefits and complications the patient elected to proceed with colonoscopy. The patient underwent colonoscopy yesterday with Dr. Mancilla, findings as above. Anusol rectal suppositories for hemorrhoids. May restart Eliquis and may discharged home from a gastroenterolgy standpoint. Follow-up in 2-4 weeks for biopsy results. The impression and plan of care has been dictated as directed. I performed a history and examination of this patient, discussed the same with the dictator. I agree with the dictator's note ,documented as a scribe. Any additional findings or plans will be noted.
--- NOTE | 2020-06-03 13:48 | P.DS ---
Providers Date of admission: 05/31/20 17:05 Expected date of discharge: 06/03/20 (Rectal bleeding, atrial fibrillation. Chronic) Attending physician: Brice Morgan Consults: 05/31/20 17:04 Consult Physician Routine Consulting Provider: Eugenia Knapp Consult Reason/Comments: dyspnea Do you want consulting provider notified?: Yes Consult Physician Routine Consulting Provider: Nani Shepard Consult Reason/Comments: gi bleed Do you want consulting provider notified?: Yes 05/31/20 17:05 Consult Physician Routine Consulting Provider: Yue Kumar Consult Reason/Comments: cancer Do you want consulting provider notified?: Yes Primary care physician: Brice Morgan This is a discharge dictation date of service 06/03/2020 Final diagnosis: #1 rectal bleeding status post colonoscopy by Dr. Braden khan unit assistant. #2 minute polyp removed by cold forceps. #3 underlying chronic atrial fibrillation on anticoagulant. #4 adjustment on the elloquis from 5- twice a day/currently 2.5 twice a day to avoid recurrent bleeding. #5 internal hemorrhoid by . 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 Currently on immunotherapy by Dr. Hassan. #7 mild volume overload with the elevated pro-BMP started on Lasix twice a day by Dr. Sandra pulmonary and critical. #8 hypoxemia with desaturation of her oxygen due to her lung CA as well as his tory of COPD and her also ox after ambulation 86% with the need for home oxygen. Patient presented initially of shortness of breath and rectal bleeding was significant with the continuous for 3 days to 4 days prior to the admission. Hospital course patient admitted to the surgical floor and consultation with Dr. Nani Gilmore gastroenterology who did subsequently seen by Dr. Braden Khan underwent colonoscopy and found that internal hemorrhoid as well as a small polyp which was removed with cold forceps. And subsequently no farther bleeding per rectum. Patient has underlying bradycardia and hypotension and medication for the beta rubina metoprolol has been decreased from 75-50 mg twice a day. Her blood pressure is stable at this time and she wants to go home with no rectal bleeding. At the time we held withheld the anticoagulant and subsequently after the colonoscopy restarted again with the half dose 12.5 mg twice a day until reevaluated in the future as outpatient with the cardiology and myself and advised that if she had any recurrent bleeding to call us for discontinuation or stopping temporary the novel anticoagulant. Patient treated for the hemorrhoids and given prescription for that. On [id number] examination. Patient is conscious alert oriented 3 ambulatory HEENT negative, oropharynx had dentures upper and lower. Neck was supple no JVD no thyromegaly no lymphadenopathy trachea midline. Chest was clear to auscultation and percussion. Heart irregular irregularities with atrial fibrillation and the heart rate 09/22/2011. Per minute nonsymptomatic. Abdomen soft nontender no farther bleeding per rectum. Extremities no edema and positive pulses. Neurologically stable and no lateralizing sign. Assessment: Patient is stable general condition for discharge with the adjustment of her medication . Plan we'll continue the current medication with the change of medication as follows. #1 Ellquis decreased to2.5 twice a day because of the rectal bleeding. #2 Lasix increased to 20 mg twice a day. #3 metoprolol changed from from 75 mg twice a day with episode of bradycardia and hypotension, decreased to 50 mg twice a day. Please copy to Dr. NAYLA Kang cardiology,, Dr. Hassan oncology, Dr. Sandra/Imer, Dr. HERNANDEZ gastroenterology Patient Condition at Discharge: Fair Plan - Discharge Summary Discharge Rx Participant: Yes New Discharge Prescriptions: New Hydrocortisone Suppository [Anusol-Hc] 25 mg RECTAL DAILY #30 supp Apixaban [Eliquis] 2.5 mg PO BID tablet Furosemide [Lasix] 20 mg PO BID@0900,1600 tab Metoprolol Tartrate [Lopressor] 50 mg PO BID tab Cyanocobalamin [Vitamin B-12] 500 mcg PO DAILY tab Continue Omeprazole 20 mg PO DAILY Potassium Chloride [Klor-Con 10] 10 meq PO DAILY Cyanocobalamin [Vitamin B-12] 500 mcg PO DAILY Calcium Carbonate/Vitamin D3 [Caltrate 600 Plus D3 Tablet] 1 tab PO HS Glucosamine/Chondr Kim A Sod [Osteo Bi-Flex Caplet] 1 tab PO BID Ondansetron [Zofran] 4 mg PO Q6H PRN PRN Reason: Nausea HYDROcodone/APAP 10-325MG [[place] 10-325] 1 tab PO Q6H PRN PRN Reason: Pain Albuterol Nebulized [Ventolin Nebulized] 2.5 mg INHALATION RT-Q4H PRN PRN Reason: Shortness Of Breath Albuterol Inhaler [Ventolin Hfa Inhaler] 2 puff INHALATION RT-Q4H PRN PRN Reason: Shortness Of Breath Discontinued Furosemide [Lasix] 20 mg PO DAILY Metoprolol Tartrate [Lopressor] 75 mg PO BID Apixaban [Eliquis] 5 mg PO BID No Action predniSONE 20 mg PO DAILY Turmeric Root Extract [Turmeric] 1,000 mg PO DAILY Discharge Medication List Omeprazole 20 mg PO DAILY 02/15/18 [History] Cyanocobalamin [Vitamin B-12] 500 mcg PO DAILY 02/27/18 [History] Potassium Chloride [Klor-Con 10] 10 meq PO DAILY 02/27/18 [History] Calcium Carbonate/Vitamin D3 [Caltrate 600 Plus D3 Tablet] 1 tab PO HS 01/23/20 [History] Glucosamine/Chondr Kim A Sod [Osteo Bi-Flex Caplet] 1 tab PO BID 01/23/20 [History] Albuterol Inhaler [Ventolin Hfa Inhaler] 2 puff INHALATION RT-Q4H PRN 05/31/20 [ History] Albuterol Nebulized [Ventolin Nebulized] 2.5 mg INHALATION RT-Q4H PRN 05/31/20 [History] HYDROcodone/APAP 10-325MG [[place] 10-325] 1 tab PO Q6H PRN 05/31/20 [History] Ondansetron [Zofran] 4 mg PO Q6H PRN 05/31/20 [History] Turmeric Root Extract [Turmeric] 1,000 mg PO DAILY 05/31/20 [History] predniSONE 20 mg PO DAILY 05/31/20 [History] Apixaban [Eliquis] 2.5 mg PO BID tablet 06/03/20 [Rx] Cyanocobalamin [Vitamin B-12] 500 mcg PO DAILY tab 06/03/20 [Rx] Furosemide [Lasix] 20 mg PO BID@0900,1600 tab 06/03/20 [Rx] Hydrocortisone Suppository [Anusol-Hc] 25 mg RECTAL DAILY #30 supp 06/03/20 [Rx] Metoprolol Tartrate [Lopressor] 50 mg PO BID tab 06/03/20 [Rx] Follow up Appointment(s)/Referral(s): [facility], [NON-STAFF] - 1 Week Braden Mancilla MD [STAFF PHYSICIAN] - 1 Week Brice Morgan MD [Primary Care Provider] - 06/10/20 2:20 pm Yue Kumar MD [STAFF PHYSICIAN] - 06/04/20 2:15 pm Anca Kang MD [STAFF PHYSICIAN] - 1 Week Activity/Diet/Wound Care/Special Instructions: Discharge Disposition: HOME WITH HOME HEALTH SERVICES
--- NOTE | 2020-06-03 14:42 | CDI ---
Acute diastolic congestive heart failure Documentation Clarification Form Date: 06/03/2020 CDS: Odalis Purvis RN, CCDS Admit Date: 06/03/2020 Patient Name: Nancy Hrat ATTENTION: The Clinical Documentation Specialists (CDI) and [facility] Coding Staff appreciate your assistance in clarifying documentation. Please respond to the clarification below the line at the bottom and electronically sign. The CDI & [facility] Coding staff will review the response and follow-up if needed. Please note: Queries are made part of the Legal Health Record. If you have any questions, please contact the author of this message via ITS. Dr. Morgan, Diastolic dysfunction with congestive heart failure is documented in your progress note 06/01 History/Risk Factors: 79-year-old female presents to the ED with bright red blood per rectum. Medical History: COPD; Lung Cancer Clinical Indicators: 05/31 VSS: B/P: 143/79; HR: 105; Temp: 98.6 F; RR: 18; SpO2 98% RA 05/31 BNP: 42722 06/02 Echo: Left ventricular systolic function is normal with, an EF between 60- 65%. Right ventricle is mildly enlarged. LA is midly dilated. Mild aortic valve sclerosis. Mild aortic regurgitation. 05/31 Chest X Ray: new mild to moderate interstitial edema and small right greater than left pleural effusions. Left basilar acute infiltrate and/or atelectasis in posterior right midlung acute infiltrate and/or atelectasis. Treatment: 05/31 Lopressor 75mg po bid; 06/01 Lasix Iv x1; 06/01 po daily In your professional opinion, can you please clarify the acuity and type of CHF if known? Chronic Diastolic Heart Failure Acute on Chronic Diastolic Heart Failure Unable to Determine Other, please specify (Last Revision: December 2017) Acute diastolic congestive heart failure MTDD
[2020-06-03 14:55] VITALS: BP 122/72; PULSE 106; RESP 17; TEMP 98.1
--- NOTE | 2020-06-03 14:59 | CDI ---
Documentation Clarification Form Date: 06/03/2020 CDS: Odalis Purvis RN, CCDS Admit Date: 05/31/2020 Patient Name: Nancy Hart ATTENTION: The Clinical Documentation Specialists (CDI) and [facility] Coding Staff appreciate your assistance in clarifying documentation. Please respond to the clarification below the line at the bottom and electronically sign. The CDI & [facility] Coding staff will review the response and follow-up if needed. Please note: Queries are made part of the Legal Health Record. If you have any questions, please contact the author of this message via ITS. Dr. Eddie MD The patient presented to the ED with shortness of breath. History/Risk Factors: 79-year-old female presents to the ED with shortness of breath and bright red blood per rectum. Medical history: Lung cancer; Atrial Fibrillation and COPD Tobacco use: former smoker Home oxygen: going home on home oxygen Clinical Indicators: Per your discharge summary hyooxemia with desaturation of her oxygen due to her lung CA as well as history of COPD and her also ox after ambulation 86% with the need for home oxygen. 05/31 Vital signs:B/P: 139/85; HR: 85; Temp: 98.3; RR: 22; SpO2 95% 2L nasal cannula Pulse oximetry: 05/31 H & P Lung/Breathing assessment: She had shortness of breath on auscultation. Treatment: Breathing tx: 05/31 Duoneb; 06/03 Ventolin: Oxygen; 2L nasal cannula while inpatient In your professional opinion, can you please clarify if these findings signify one of the following conditions? Chronic Respiratory Failure Other Diagnosis, please specify Unable to determine Specificity: If known, further specify (if known): With hypercapnia? (pCO2 >50 and pH <7.35) With hypoxia? (pO2 <60 mm Hg or SpO2 <91% on room air) (Last Query Form Revision: May 2019) Acute respiratory failure with hypoxemia necessitate oxygen at home portable and rewards consultant 3 to on the top of chronic due to right long adenocarcinoma with metastasis to the bone and the brain MTDD
[2020-06-03] MEDS ORDERED: CALCIUM CARB-VIT D 500MG-200UN 1 EACH TAB PO SCH (21:00)
[2020-06-03] MEDS ORDERED: NON FORMULARY DRUG (Glucosamine/Chondr Su A Sod [Osteo Bi-Flex Caplet] 1 EACH Tablet) PO SCH (21:00)
[2020-06-04] MEDS ORDERED: NON FORMULARY DRUG (Omeprazole [Omeprazole] 20 MG Tablet.Dr) PO SCH (09:00)
--- NOTE | 2020-06-06 20:58 | CDI ---
Documentation Clarification Form Date: 06/07/2020 From: Maxx Kang Phone: If you have a question about this query, please contact Klaudia Atkins, Machine Sprayer at [phone] between 8am and 5pm. Admit Date: 05/31/2020 Discharge Date: 06/02/2020 Patient Name: Nancy Hart Visit Number: [id number] ATTENTION: The Clinical Documentation Specialists (CDI) and [facility] Coding Staff appreciate your assistance in clarifying documentation. Please respond to the clarification below the line at the bottom and electronically sign. The CDI & [facility] Coding staff will review the response and follow-up if needed. Please note: Queries are made part of the Legal Health Record. If you have any questions, please contact the author of this message via ITS. Dear Brice Desir MD., The patients principal diagnosis has not been clearly identified and requires clarification. She presented with the Rectal bleeding. History/Risk factors: Lung cancer, bone cancer, brain cancer, CHF Colonoscopy reports shows "Moderate internal hemorrhoids. Mild sigmoid diverticulosis. Diminutive sigmoid polyp removed with cold forceps. With the drop of hemoglobin almost 2 g due to hemorrhoid.And the polyp was removed which was small. Per DS adjustment on the Ellquis from 5 -twice day/currently 2.5 twice a day to avoid recurrent bleeding Abdomen soft positive bowel sounds Painless no tenderness with the underlying hemorrhoid was bleeding per rectum In your professional opinion, can you please clarify which diagnosis, after study, accounted for the patients presenting symptoms and was the reason chiefly responsible for the admission? Rectal bleeding due to Hemorrhoids Rectal bleeding due to Diverticulitis Other, Please specify Unable to Determine Rectal bleeding due to hemorrhoids by colonoscopy done by Dr. Braden [employer] sales senior executive OMARI
== END 2020-06-03 15:15 | disposition home health service (06) | DRG 393 ==
LOC: EC 14:29 → 4SSUR 17:05
PROVIDERS: ADMIT Internal Medicine; ATTEND Internal Medicine
PROC: 0DBN8ZZ Excision of Sigmoid Colon, Via Natural or Artificial Opening Endoscopic (ICD-10-PCS; principal; 2020-06-02 08:05)
DX: K64.8 Other hemorrhoids (principal); I50.31 Acute diastolic (congestive) heart failure; J96.01 Acute respiratory failure with hypoxia; I13.0 Hypertensive heart and chronic kidney disease with heart failure and stage 1 through stage 4 chronic kidney disease, or unspecified chronic kidney disease; C34.91 Malignant neoplasm of unspecified part of right bronchus or lung; C79.31 Secondary malignant neoplasm of brain; C79.51 Secondary malignant neoplasm of bone; E78.5 Hyperlipidemia, unspecified; K57.30 Diverticulosis of large intestine without perforation or abscess without bleeding; E86.0 Dehydration; K63.5 Polyp of colon; K59.09 Other constipation; M19.90 Unspecified osteoarthritis, unspecified site; K21.9 Gastro-esophageal reflux disease without esophagitis; N18.3 Chronic kidney disease, stage 3 (moderate); Z96.652 Presence of left artificial knee joint; I27.20 Pulmonary hypertension, unspecified; H91.90 Unspecified hearing loss, unspecified ear; I48.0 Paroxysmal atrial fibrillation; D63.1 Anemia in chronic kidney disease; J44.9 Chronic obstructive pulmonary disease, unspecified; G47.00 Insomnia, unspecified; T40.605A Adverse effect of unspecified narcotics, initial encounter; F06.4 Anxiety disorder due to known physiological condition; K59.03 Drug induced constipation; Z79.899 Other long term (current) drug therapy; Z79.01 Long term (current) use of anticoagulants; Z90.49 Acquired absence of other specified parts of digestive tract; Z92.3 Personal history of irradiation; Z90.710 Acquired absence of both cervix and uterus; Z87.891 Personal history of nicotine dependence; Z82.3 Family history of stroke; Z80.41 Family history of malignant neoplasm of ovary; Z80.0 Family history of malignant neoplasm of digestive organs; Z80.1 Family history of malignant neoplasm of trachea, bronchus and lung; Z80.9 Family history of malignant neoplasm, unspecified
CPT/HCPCS: 36415; 45380; 71046; 80048; 80053; 82533; 82728; 83036; 83540; 83550; 83605; 83735; 83880; 84443; 84484; 85025; 85610; 85730; 86850; 86900; 86901; 88305; 93005; 93306; 94640; 94760; 96374; 99285

== ENCOUNTER → 2020-08-15 | Outpatient (CLI) | payer MEDICARE ==
--- NOTE | 2020-08-18 06:35 | PE ---
EXAMINATION TYPE: PET CT fusion skull to thigh DATE OF EXAM: 08/15/2020 COMPARISON: Prior PET/CT May 30, 2020 and older study January 18, 2020 HISTORY: Lung cancer. Originally diagnosed in January 2020. On immunotherapy currently. TECHNIQUE: Following the intravenous administration of 12.54 mCi of F-18 FDG, whole body images a re performed from the skull base to the midthigh. Images are reviewed on the computer in the coronal , axial, and sagittal planes. Reconstructed rotating images are created on independent workstation a nd reviewed on the computer. A localization and attenuation correction CT is performed in conjuncti on with the PET scan. SCAN: Subsequent Scan FINDINGS: SKULL BASE AND NECK: No suspicious new areas of abnormal hypermetabolic uptake. CHEST, MEDIASTINUM, AND HILAR REGION: No new areas of suspicious residual or new abnormal hypermetabo lic uptake. ABDOMEN AND PELVIS: Normal excretion. No new adrenal masses. No new areas of abnormal hypermetabolic uptake. OSSEOUS STRUCTURES: Focal new hypermetabolic uptake right iliac bone at site of lytic lesion with pat hologic fracture now seen axial image 236. There is more subacute or healing fracture posteriorly axi al image 237 near the ischial tuberosity. There is subacute fracture to the superior pelvic ramus axi al image 225. OTHER CT: [id number] calcified plaque right greater than left carotid bulbs. Mild to moderate underlying emphysematous change of the lungs. Dependent atelectasis in both lower lo bes. Mild cardiomegaly. Cholecystectomy clips. Scattered bilateral pelvic phleboliths. Uterus is surgically absent. Sigmoid colonic diverticula. S-shaped scoliotic curvature with multilevel spurring in the spine. IMPRESSION: Lytic pathologic fracture right inferior pelvic ramus. Suspect osseous metastatic disease progression despite lack of hypermetabolic uptake as new lytic lesions are felt present.
== END | disposition home or self-care (01) ==
LOC: RADPETMAIN 11:43
PROVIDERS: ATTEND Internal Medicine Hematology & Oncology
DX: M84.454A Pathological fracture, pelvis, initial encounter for fracture (principal); C34.31 Malignant neoplasm of lower lobe, right bronchus or lung; Z92.21 Personal history of antineoplastic chemotherapy
CPT/HCPCS: 78815; A9552

== ENCOUNTER → 2020-08-15 | Outpatient (CLI) | payer MEDICARE ==
--- NOTE | 2020-08-15 16:29 | XR ---
I lateral shoulders HISTORY: Pain 2 views of each shoulder are submitted. Correlation to nuclear medicine PET/CT 08/15/2020 Arthropathy present at the acromioclavicular joints. Bone mineralization is reduced. No fracture or d islocation. IMPRESSION: Acromioclavicular joint arthropathy bilaterally.
== END | disposition home or self-care (01) ==
LOC: RADXRMAIN 14:52
PROVIDERS: ATTEND Internal Medicine Hematology & Oncology
DX: M12.812 Other specific arthropathies, not elsewhere classified, left shoulder (principal); M12.811 Other specific arthropathies, not elsewhere classified, right shoulder; C79.51 Secondary malignant neoplasm of bone; C34.31 Malignant neoplasm of lower lobe, right bronchus or lung

== ENCOUNTER → 2020-08-20 | Outpatient (CLI) | payer MEDICARE ==
--- NOTE | 2020-08-20 10:45 | MR ---
EXAMINATION TYPE: MR brain wo/w con DATE OF EXAM: 08/20/2020 COMPARISON: 05/20/2020 HISTORY: Brain neoplasm, F/u after treatment TECHNIQUE: Multiplanar, multisequence images of the brain and brainstem is performed without and with IV contras t, utilizing 10 mL intravenous Gadavist . FINDINGS: 1 tiny area of diffusion restriction adjacent to the right lateral ventricle and left parietal lobe i s stable from prior exam and corresponds to the ring-enhancing lesions measuring 4 mm. Right parietal white matter ring-enhancing lesion measures 4 mm and previously measured 6 mm. A second ring-enhanc ing lesion within the left parietal lobe measures 5.5 x 5.2 x 1.0 cm mm and previously measured 9 x 7 x 1.2 cm in greatest axis. Mild generalized degenerative change with scattered nonspecific white matter signal most typical christel te microvascular ischemia. Midline structures demonstrate normal morphology. The craniocervical junction appears within normal limits. Post contrast images demonstrate no abnormal enhancement. The dural venous sinuses appear pa tent. Changes of chronic sinusitis noted. Thornwaldt cyst or evidence of line noted in the posterior nasopharynx. IMPRESSION: 1. There is mild interval reduction in colonic mental in size of a left parietal ring-enhancing lesio n previously measured 9 x 7 by 1.2 cm in craniocaudal greatest axis. Now measures 5.5 x 5.2 x 1 cm. 2. 4 mm right parietal white matter lesion ring-enhancing Trish measures 6 mm. 3. Degenerative change and nonspecific white matter changes most typical remote ischemia. No new enha ncing lesions are seen.
== END | disposition home or self-care (01) ==
LOC: RADMRIMAIN 09:32
PROVIDERS: ATTEND Radiology Radiation Oncology
DX: I67.82 Cerebral ischemia (principal); G31.1 Senile degeneration of brain, not elsewhere classified; G93.89 Other specified disorders of brain; R90.89 Other abnormal findings on diagnostic imaging of central nervous system; C79.31 Secondary malignant neoplasm of brain; C79.51 Secondary malignant neoplasm of bone; C77.9 Secondary and unspecified malignant neoplasm of lymph node, unspecified; C34.31 Malignant neoplasm of lower lobe, right bronchus or lung; Z92.3 Personal history of irradiation
CPT/HCPCS: 70553; A9585

== ENCOUNTER → 2020-10-08 | Outpatient (CLI) | payer MEDICARE ==
--- NOTE | 2020-10-08 13:00 | MR ---
EXAMINATION TYPE: MR cspine/tspine wo/w con DATE OF EXAM: 10/08/2020 COMPARISON: MR 05/23/2020 cervical spine and thoracic spine HISTORY: Lung Ca, bone mets, weakness, shoulder pain TECHNIQUE: Multiplanar, multisequence images of the cervical and thoracic spine is performed without and with IV contrast, utilizing 11.5 mL intravenous Gadavist FINDINGS: Cervical spine: There is motion on the exam. The cervical vertebral bodies show a similar appearance with multilevel spondylosis, loss of disc hei ght signal at intervertebral levels, anterolisthesis grade 1 C2-3, C3-4, C7-T1, retrolisthesis grade 1 C4-5 and C5-6. Multilevel degenerative disc disease shows a similar appearance, posterior extension endplate disc complex C4-5, C5-6 and C6-7 causes anterior mass effect on the thecal sac, posterior d isc bulge C2-3, C3-4 causes mild anterior mass effect on the thecal sac. Mild stenosis present at C4- 5, C5-6 stable at approximately 7 mm AP diameter of the spinal canal. Below foraminal encroachment is present, bilaterally at C4-5, C5-6. Cervical cord signal is maintained. Following contrast administration there is some enhancement of the C2 lamina on the left, low signal is present on T1, high signal on T2 at this level. Cervical vertebral bodies show preserved height, s table marrow signal, endplate discogenic marrow signal changes are present. IMPRESSION: Findings at C2 may be due to metastatic disease. Stable degenerative disc disease, spinal stenosis. Thoracic spine MRI: There is no evident spinal stenosis. Thoracic vertebral bodies show stable height , alignment, bone marrow signal. Superior endplate at T10 shows a Schmorl's node with associated adeline ow signal change. Disc spaces show stable appearance, is multilevel spondylosis. No evident disc bernarda iation. Facet arthropathy changes are present at the lower lumbar spine. Suspect some foraminal encro achment on the right at T7-8. Descending aorta measures 3 cm. T12-L1 shows a posterior disc bulge, T1 1-T12 also shows mild posterior disc bulge. No abnormal enhancement on contrast administration. Abnor mal signal noted within the lung. IMPRESSION: Essentially stable findings. Findings consistent with patient's history of lung carcinoma . No evident metastatic disease to the thoracic spine.
== END | disposition home or self-care (01) ==
LOC: RADMRIMAIN 08:25
PROVIDERS: ATTEND Internal Medicine Hematology & Oncology
DX: C34.31 Malignant neoplasm of lower lobe, right bronchus or lung (principal); C79.51 Secondary malignant neoplasm of bone; R53.1 Weakness; M25.111 Fistula, right shoulder; M25.122 Fistula, left elbow
CPT/HCPCS: 72156; 72157; A9585

== ENCOUNTER → 2020-11-07 | Outpatient (CLI) | payer MEDICARE ==
--- NOTE | 2020-11-10 07:34 | PE ---
EXAMINATION TYPE: PET CT fusion skull to thigh DATE OF EXAM: 11/07/2020 COMPARISON: Prior PET/CT August 15, 2020 HISTORY: Right-sided Lung cancer diagnosed January 2020 metastatic to brain and bone progress study. TECHNIQUE: Following the intravenous administration of 12.17 mCi of F-18 FDG, whole body images are performed from the skull base to the midthigh. Images are reviewed on the computer in the coronal, a xial, and sagittal planes. Reconstructed rotating images are created on independent workstation and reviewed on the computer. A localization and attenuation correction CT is performed in conjunction with the PET scan. Blood glucose level equals 101. SCAN: Subsequent Scan FINDINGS: SKULL BASE AND NECK: No suspicious new areas of abnormal hypermetabolic uptake. Mild symmetric hyper metabolic shoulder uptake redemonstrated presumed postinflammatory. CHEST, MEDIASTINUM, AND HILAR REGION: No new areas of suspicious residual or new abnormal hypermetabo lic uptake. Recurrent small to tiny right pleural effusion is noted. Stable ametabolic 6 mm right mid lung nodule axial image 79. ABDOMEN AND PELVIS: Normal excretion. No new adrenal masses. No new areas of abnormal hypermetabolic uptake. OSSEOUS STRUCTURES: Stable mild hypermetabolic uptake right iliac bone at site of lytic lesion with p athologic fracture now seen axial image 226. There is healing or healed fracture posteriorly axial image 227 near the ischial tuberosity remains a metabolic. There is healing or healed fracture to the superior pelvic ramus axial image 215 with scle rosis. No definitive new areas of abnormal hypermetabolic uptake in osseous structures. OTHER CT: [id number] calcified plaque right greater than left carotid bulbs. Mild to moderate underlying emphysematous change of the lungs. Dependent atelectasis in both lower lo bes. Mild cardiomegaly. Low lung volumes. Areas of right lung compressive atelectasis. New mild alveo lar edema bilaterally. Correlate for failure. Cholecystectomy clips redemonstrated. Small hiatal hernia. Moderate calcified plaque of the aorta ext ends into branch vessels. Scattered bilateral pelvic phleboliths. Uterus is surgically absent. Sigmoid colonic diverticula. S-shaped scoliotic curvature with multilevel spurring in the spine. IMPRESSION: Recurrent small right pleural effusion is concerning despite being ametabolic due to unil ateral appearance. No new hypermetabolic osseous metastatic disease.
== END | disposition home or self-care (01) ==
LOC: RADPETMAIN 10:18
PROVIDERS: ATTEND Internal Medicine Hematology & Oncology
DX: C34.31 Malignant neoplasm of lower lobe, right bronchus or lung (principal); R91.1 Solitary pulmonary nodule
CPT/HCPCS: 78815; A9552

== ENCOUNTER → 2020-11-24 | Outpatient (CLI) | payer MEDICARE ==
--- NOTE | 2020-11-24 13:07 | MR ---
EXAMINATION TYPE: MR brain wo/w con DATE OF EXAM: 11/24/2020 COMPARISON: 08/20/2020 and 02/13/2020 HISTORY: 79-year-old female Brain neoplasm, F/u after treatment TECHNIQUE: Multiplanar, multisequence images of the brain and brainstem were acquired before and aft er administration of 11.5 mL IV Gadavist. Diffusion weighted imaging is performed. FINDINGS: No suspicious restricted diffusion. Increased signal on DWI at the patient's anterior left parietal l obe and right periventricular lesions correspond to T2 shine through when correlating to ADC map. These lesions continue to show ring enhancement and they are either stable or minimally larger. On the right, the lesion measures 8 x 6 mm versus 5 x 4 mm, previously. On the left, the lesion measu res 8 x 6 mm, unchanged. Associated surrounding bright T2 signal change has increased on the right and is stable on the left. Additional scattered mild to moderate burden of T2 bright white matter change in the cerebral hemisph eres. There is mild cerebral cortical volume loss. No hydrocephalus or midline shift. No effacement of basa l subarachnoid cisterns. Moderate mucosal thickening ethmoid air cells and mild within the maxillary sinuses. Globes are intac t. IMPRESSION: 1. The ring-enhancing right periventricular lesion is slightly larger at 8 x 6 mm (versus 5 x 4 mm, p reviously) and also shows some increasing surrounding vasogenic edema.. 2. The ring-enhancing anterior left parietal lesion is stable at 8 x 6 mm. The associated vasogenic e calli is also unchanged. 3. No new lesions are seen.
== END ==
LOC: RADMRIMAIN 11:43
PROVIDERS: ATTEND Radiology Radiation Oncology
DX: C71.9 Malignant neoplasm of brain, unspecified (principal); G93.6 Cerebral edema
CPT/HCPCS: 70553; A9585

== ENCOUNTER → 2021-01-30 | Outpatient (CLI) | payer MEDICARE ==
--- NOTE | 2021-02-02 11:45 | PE ---
EXAMINATION TYPE: PET CT fusion skull to thigh DATE OF EXAM: 01/30/2021 COMPARISON: Prior PET/CT November 07, 2020 and older studies. HISTORY: Right-sided lung cancer diagnosed January 30, 2020 metastatic to brain and bone progress study. TECHNIQUE: Following the intravenous administration of 11.40 mCi of F-18 FDG, whole body images are performed from the skull base to the midthigh. Images are reviewed on the computer in the coronal, a xial, and sagittal planes. Reconstructed rotating images are created on independent workstation and reviewed on the computer. A localization and attenuation correction CT is performed in conjunction with the PET scan. Blood glucose level equals 95. SCAN: Subsequent Scan FINDINGS: SKULL BASE AND NECK: No suspicious new areas of abnormal hypermetabolic uptake. Mild symmetric hyper metabolic shoulder uptake redemonstrated presumed postinflammatory. CHEST, MEDIASTINUM, AND HILAR REGION: No new areas of suspicious residual or new abnormal hypermetabo lic uptake. Persistent small to tiny right pleural effusion is slightly increased in size from most r ecent PET/CT. Background moderate underlying emphysematous change redemonstrated. Scattered mild to m oderate parenchymal scarring again seen. Stable ametabolic 5 mm right mid lung nodule axial image 83 current study. ABDOMEN AND PELVIS: Normal excretion. No new adrenal masses. No new areas of abnormal hypermetabolic uptake. OSSEOUS STRUCTURES: Stable mild hypermetabolic uptake right iliac bone at site of healing pathologic fracture now seen axial image 229. There is healing or healed fracture posteriorly axial image 228 near the ischial tuberosity remains a metabolic redemonstrated. There is healing or healed fracture to the superior pelvic ramus with hyper metabolic uptake axial image 219 with sclerosis redemonstrated no significant interval change. No definitive new areas of abnormal hypermetabolic uptake in osseous structures. OTHER CT: [id number] calcified plaque right greater than left carotid bulbs. Mild to moderate underlying emphysematous change of the lungs. Dependent atelectasis in both lower lo bes. Mild cardiomegaly. Low lung volumes. Areas of right lung compressive atelectasis. Cholecystectomy clips redemonstrated. Stable Small hiatal hernia. Moderate calcified plaque of the ao rta extends into branch vessels. Scattered bilateral pelvic phleboliths. Uterus is surgically absent. Sigmoid colonic diverticula. S-shaped scoliotic curvature with multilevel spurring in the spine. Multilevel facet arthropathy. IMPRESSION: Small right pleural effusion is slightly increased in size but remains ametabolic. No new hypermetabolic osseous metastatic disease. No new hypermetabolic masses or adenopathy identified.
== END | disposition home or self-care (01) ==
LOC: RADPETMAIN 10:17
PROVIDERS: ATTEND Internal Medicine Hematology & Oncology
DX: C79.31 Secondary malignant neoplasm of brain (principal); C79.51 Secondary malignant neoplasm of bone; C34.91 Malignant neoplasm of unspecified part of right bronchus or lung; J90 Pleural effusion, not elsewhere classified
CPT/HCPCS: 78815; A9552

== ENCOUNTER → 2021-02-24 | Outpatient (CLI) | payer MEDICARE ==
--- NOTE | 2021-02-24 16:52 | MR ---
EXAMINATION TYPE: MR brain wo/w con DATE OF EXAM: 02/24/2021 COMPARISON: Prior MRI brain November 24, 2020 and older studies HISTORY: 3 month follow up, no new symptoms, history of brain, lung, and hip cancer. TECHNIQUE: Multiplanar, multisequence images of the brain and brainstem is performed without and with IV contras t, utilizing 11 mL intravenous Gadavist . FINDINGS: Diffusion weighted images demonstrate no evidence of a recent infarct or other diffusion ab normality. There is mild to moderate ventricular and sulcal prominence redemonstrated. Midline struc tures redemonstrate normal morphology. The craniocervical junction remains within normal limits. Enlarging 13 x 9 mm deep right parietal periventricular lesion axial image 51 shows also worsening pak rrounding vasogenic edema. The higher left parietal lesion measures 11 x 8 mm current study image 66 with surrounding vasogenic edema is stable or slightly larger from most recent prior. No definite new enhancing lesions. The dural venous sinuses remaining patent. The visualized sinuses are clear and the globes are intact. IMPRESSION: Enlarging right parietal periventricular lesion with worsening surrounding vasogenic minnie a. Stable or only slightly worsened more superior left parietal lesion, degree of surrounding vasogen ic edema fairly stable. No new metastatic lesions identified.
== END | disposition home or self-care (01) ==
LOC: RADMRIMAIN 12:04
PROVIDERS: ATTEND Radiology Radiation Oncology
DX: G93.6 Cerebral edema (principal)
CPT/HCPCS: 70553; A9585

== ENCOUNTER → 2021-03-12 | Outpatient (CLI) | payer MEDICARE ==
--- NOTE | 2021-03-12 13:26 | XR ---
EXAM TYPE: LUMBAR SPINE X RAY SERIES COMPARISON: 03/28/2017 HISTORY: Low back TECHNIQUE: 4 views are submitted. FINDINGS: Alignment is anatomic. The pedicles are intact. The transverse processes are intact. There is scol iotic curvature of the spine with multilevel hypertrophic and degenerative change. Grade 1 anterolist hesis L4 and L5 with multilevel facet arthropathy. Vascular calcifications noted. Surgical clips in t he gallbladder fossa. IMPRESSION: 1. Multilevel moderate to severe degenerative disc disease. 2. Stable grade 1 anterolisthesis L4 and L5. 3. Multilevel facet arthropathy
--- NOTE | 2021-03-12 13:28 | XR ---
EXAMINATION TYPE: XR knee complete bilateral DATE OF EXAM: 03/12/2021 COMPARISON: NONE HISTORY: Pain TECHNIQUE: Three views are submitted of each knee. FINDINGS: Left knee: There is postsurgical change and diffuse osteopenia. No acute fracture. No dislocation. No definite intraosseous lesion. Right knee: Moderate to severe narrowing of the tricompartment spaces with hypertrophic spurring. Dif fuse osteopenia. No definitive intraosseous lesion IMPRESSION: 1. Postsurgical change left knee. 2. Moderate to severe osteoarthritis of the right knee. 3. Diffuse osteopenia 4. No definite intraosseous
== END | disposition home or self-care (01) ==
LOC: RADXRMAIN 12:28
PROVIDERS: ATTEND Internal Medicine
DX: M43.16 Spondylolisthesis, lumbar region (principal); M46.97 Unspecified inflammatory spondylopathy, lumbosacral region; C34.90 Malignant neoplasm of unspecified part of unspecified bronchus or lung
CPT/HCPCS: 72110

== ENCOUNTER → 2021-04-10 | Outpatient (CLI) | payer MEDICARE ==
--- NOTE | 2021-04-11 05:42 | MR ---
EXAMINATION TYPE: MR brain wo/w con DATE OF EXAM: 04/10/2021 COMPARISON: 02/24/2021 HISTORY: Lung cancer, brain cancer, and left leg weakness. CONTRAST: Standard multiplanar, multisequence MRI departmental protocol utilizing 12 mL intravenous Gadavist ga dolinium contrast. There is 2.6 cm ring enhancing mass in the right posterior parietal lobe adjacent to the lateral vent ricle. This measures 2 cm on previous exam. There is some surrounding white matter edema that measure s 6 cm. There is 9 mm ring-enhancing lesion left posterior parietal lobe near the convexity unchanged . The brainstem is intact. There is no midline shift. There is no sign of intracranial hemorrhage. Th ere are scattered white matter small high signal foci on the T2 and FLAIR images without enhancement and likely related to microvascular ischemia. The corpus callosum is intact. Sella turcica is normal. There is normal enhancement of the venous sinuses. There is some mucosal thickening anterior ethmoid air cells. IMPRESSION: 2 foci of enhancement in the brain as above. The larger lesion adjacent to the right lateral ventricl e is increased compared to last exam. This is consistent with progression of metastatic disease. I do not see a new lesion compared to old exam.
== END | disposition home or self-care (01) ==
LOC: RADMRIMAIN 20:07
PROVIDERS: ATTEND Radiology Radiation Oncology
DX: C34.31 Malignant neoplasm of lower lobe, right bronchus or lung (principal); C79.31 Secondary malignant neoplasm of brain; C77.9 Secondary and unspecified malignant neoplasm of lymph node, unspecified; C79.51 Secondary malignant neoplasm of bone; J44.9 Chronic obstructive pulmonary disease, unspecified; Z92.3 Personal history of irradiation
CPT/HCPCS: 70553; A9585

== ENCOUNTER 2021-04-19 21:42 | Inpatient (IN) | payer MEDICARE ==
[2021-04-19] MEDS ORDERED: SODIUM CHLORIDE 0.9% 1,000 ML IV STA ×2 (21:56→22:55)
--- NOTE | 2021-04-19 22:01 | ED ---
Weakness HPI - General Stated complaint: Weakness Time Seen by Provider: 04/19/21 21:54 - Related Data Home Medications Medication Instructions Recorded Confirmed Omeprazole 20 mg PO DAILY 02/15/18 05/31/20 Cyanocobalamin [Vitamin B-12] 500 mcg PO DAILY 02/27/18 05/31/20 Potassium Chloride [Klor-Con 10] 10 meq PO DAILY 02/27/18 05/31/20 Calcium Carbonate/Vitamin D3 1 tab PO HS 01/23/20 05/31/20 [Caltrate 600 Plus D3 20 Mcg (800 Iu)] Glucosamine/Chondr Kim A Sod [Osteo 1 tab PO BID 01/23/20 05/31/20 Bi-Flex Caplet] Albuterol Inhaler [Ventolin Hfa 2 puff INHALATION RT-Q4H PRN 05/31/20 05/31/20 Inhaler] Albuterol Nebulized [Ventolin 2.5 mg INHALATION RT-Q4H PRN 05/31/20 05/31/20 Nebulized] HYDROcodone/APAP 10-325MG [Delta 1 tab PO Q6H PRN 05/31/20 05/31/20 10-325] Ondansetron [Zofran] 4 mg PO Q6H PRN 05/31/20 05/31/20 Turmeric Root Extract [Turmeric] 1,000 mg PO DAILY 05/31/20 05/31/20 predniSONE 20 mg PO DAILY 05/31/20 05/31/20 Previous Rx's Medication Instructions Recorded Apixaban [Eliquis] 2.5 mg PO BID tablet 06/03/20 Cyanocobalamin [Vitamin B-12] 500 mcg PO DAILY tab 06/03/20 Furosemide [Lasix] 20 mg PO BID@0900,1600 tab 06/03/20 Hydrocortisone Suppository 25 mg RECTAL DAILY #30 supp 06/03/20 [Anusol-Hc] Metoprolol Tartrate [Lopressor] 50 mg PO BID tab 06/03/20 Allergies Allergy/AdvReac Type Severity Reaction Status Date / Time No Known Allergies Allergy Verified 04/19/21 22:54 Review of Systems ROS Statement: Those systems with pertinent positive or pertinent negative responses have been documented in the HPI. ROS Other: All systems not noted in ROS Statement are negative. Past Medical History Past Medical History: Atrial Fibrillation, Cancer, GERD/Reflux, Hyperlipidemia, Hypertension, Osteoarthritis (OA) Additional Past Medical History / Comment(s): lung CA History of Any Multi-Drug Resistant Organisms: None Reported Past Surgical History: Cholecystectomy, Hysterectomy, Joint Replacement Additional Past Surgical History / Comment(s): Left knee replacement Past Anesthesia/Blood Transfusion Reactions: Previous Problems w/ Anesthesia Additional Past Anesthesia/Blood Transfusion Reaction / Comment(s): Heart rate drops with anesthesia Past Psychological History: No Psychological Hx Reported Smoking Status: Former smoker Past Drug Use History: None Reported - Past Family History Mother Family Medical History: Osteoarthritis (OA) Father Family Medical History: CVA/TIA Sister(s) Family Medical History: Cancer Additional Family Medical History / Comment(s): ovarian, colorectal, lung Brother(s) Family Medical History: Cancer Additional Family Medical History / Comment(s): brain Course Vital Signs 04/19/21 21:54 Pulse Rate 102 H Respiratory 17 Rate Blood Pressure 130/91 O2 Sat by Pulse 98 Oximetry EKG Findings - EKG Comments: EKG Findings:: EKG shows A. fib with RVR 103 QRS 84 QTc 461 Medical Decision Making - Lab Data Result diagrams: 04/19/21 22:08 04/19/21 22:08 Lab Results 04/19/21 04/19/21 04/19/21 Range/Units 22:08 22:08 22:08 WBC 10.3 (3.8-10.6) k/uL RBC 5.51 H (3.80-5.40) m/uL Hgb 15.9 (11.4-16.0) gm/dL Hct 47.9 H (34.0-46.0) % MCV 87.0 (80.0-100.0) fL MCH 28.9 (25.0-35.0) pg MCHC 33.2 (31.0-37.0) g/dL RDW 14.1 (11.5-15.5) % Plt Count 291 (150-450) k/uL MPV 7.5 Neutrophils % 75 % Lymphocytes % 12 % Monocytes % 10 % Eosinophils % 1 % Basophils % 0 % Neutrophils # 7.8 H (1.3-7.7) k/uL Lymphocytes # 1.2 (1.0-4.8) k/uL Monocytes # 1.0 (0-1.0) k/uL Eosinophils # 0.1 (0-0.7) k/uL Basophils # 0.0 (0-0.2) k/uL PT 10.9 (9.0-12.0) sec INR 1.0 (<1.2) APTT 22.0 (22.0-30.0) sec Sodium 134 L (137-145) mmol/L Potassium 4.0 (3.5-5.1) mmol/L Chloride 103 (98-107) mmol/L Carbon Dioxide 21 L (22-30) mmol/L Anion Gap 10 mmol/L BUN 35 H (7-17) mg/dL Creatinine 0.92 (0.52-1.04) mg/dL Est GFR (CKD-EPI)AfAm 67 (>60 ml/min/1.73 sqM) Est GFR (CKD-EPI)NonAf 58 (>60 ml/min/1.73 sqM) Glucose 118 H (74-99) mg/dL Plasma Lactic Acid Xavi (0.7-2.0) mmol/L Calcium 10.9 H (8.4-10.2) mg/dL Phosphorus 4.3 (2.5-4.5) mg/dL Magnesium 2.2 (1.6-2.3) mg/dL Total Bilirubin 0.4 (0.2-1.3) mg/dL AST 20 (14-36) U/L ALT 16 (4-34) U/L Alkaline Phosphatase 58 (38-126) U/L Creatine Kinase <20 L (30-135) U/L NT-Pro-B Natriuret Pep pg/mL Total Protein 7.1 (6.3-8.2) g/dL Albumin 4.1 (3.5-5.0) g/dL 04/19/21 04/19/21 Range/Units 22:08 22:08 WBC (3.8-10.6) k/uL RBC (3.80-5.40) m/uL Hgb (11.4-16.0) gm/dL Hct (34.0-46.0) % MCV (80.0-100.0) fL MCH (25.0-35.0) pg MCHC (31.0-37.0) g/dL RDW (11.5-15.5) % Plt Count (150-450) k/uL MPV Neutrophils % % Lymphocytes % % Monocytes % % Eosinophils % % Basophils % % Neutrophils # (1.3-7.7) k/uL Lymphocytes # (1.0-4.8) k/uL Monocytes # (0-1.0) k/uL Eosinophils # (0-0.7) k/uL Basophils # (0-0.2) k/uL PT (9.0-12.0) sec INR (<1.2) APTT (22.0-30.0) sec Sodium (137-145) mmol/L Potassium (3.5-5.1) mmol/L Chloride (98-107) mmol/L Carbon Dioxide (22-30) mmol/L Anion Gap mmol/L BUN (7-17) mg/dL Creatinine (0.52-1.04) mg/dL Est GFR (CKD-EPI)AfAm (>60 ml/min/1.73 sqM) Est GFR (CKD-EPI)NonAf (>60 ml/min/1.73 sqM) Glucose (74-99) mg/dL Plasma Lactic Acid Xavi 1.5 (0.7-2.0) mmol/L Calcium (8.4-10.2) mg/dL Phosphorus (2.5-4.5) mg/dL Magnesium (1.6-2.3) mg/dL Total Bilirubin (0.2-1.3) mg/dL AST (14-36) U/L ALT (4-34) U/L Alkaline Phosphatase (38-126) U/L Creatine Kinase (30-135) U/L NT-Pro-B Natriuret Pep 2000 pg/mL Total Protein (6.3-8.2) g/dL Albumin (3.5-5.0) g/dL Disposition Clinical Impression: Atrial fibrillation, Weakness, Atrial fibrillation with RVR, Dehydration, Left leg weakness, Intertrigo Disposition: ADMITTED IP TO THIS HOSP Condition: Fair Is patient prescribed a controlled substance at d/c from ED?: No Referrals: Briec Morgan MD [Primary Care Provider] - 1-2 days
[2021-04-19 22:24] LABS: Basophils % (A) 0 %; Eosinophils # (A) 0.1 k/uL (0-0.7); Eosinophils % (A) 1 %; HCT 47.9 % (34.0-46.0); HGB 15.9 gm/dL (11.4-16.0); Lymphocytes # (A) 1.2 k/uL (1.0-4.8); Lymphocytes % (A) 12 %; MCH 28.9 pg (25.0-35.0); MCHC 33.2 g/dL (31.0-37.0); Mean Platelet Volume 7.5; Monocytes % (A) 10 %; Neutrophils # (A) 7.8 k/uL (1.3-7.7); Neutrophils % (A) 75 %; Platelet Count 291 k/uL (150-450); RBC 5.51 m/uL (3.80-5.40); RDW 14.1 % (11.5-15.5); WBC 10.3 k/uL (3.8-10.6)
[2021-04-19 22:33] LABS: ALT 16 U/L (4-34); AST 20 U/L (14-36); African American GFR (CKD) 67 (>60 ml/min/1.73 sqM); Albumin 4.1 g/dL (3.5-5.0); Alkaline Phosphatase 58 U/L (38-126); Anion Gap 10 mmol/L; Blood Urea Nitrogen 35 mg/dL (7-17); Calcium 10.9 mg/dL (8.4-10.2); Carbon Dioxide 21 mmol/L (22-30); Chloride 103 mmol/L (98-107); Creatine Kinase <20 U/L (30-135); Glucose 118 mg/dL (74-99); Magnesium 2.2 mg/dL (1.6-2.3); Non-African American GFR(CKD) 58 (>60 ml/min/1.73 sqM); Phosphorus 4.3 mg/dL (2.5-4.5); Sodium 134 mmol/L (137-145); Total Bilirubin 0.4 mg/dL (0.2-1.3); Total Protein 7.1 g/dL (6.3-8.2)
[2021-04-19 22:43] LABS: Prothrombin Time 10.9 sec (9.0-12.0)
[2021-04-19] MEDS ORDERED: DILTIAZEM 5 MG/ML 5 ML VIAL IVP STA (22:55)
[2021-04-19] MEDS ORDERED: ONDANSETRON 4 MG/2 ML VIAL IVP PRN (22:56)
[2021-04-19] MEDS ORDERED: NALOXONE 0.4 MG/ML 1 ML VIAL IV PRN (22:56)
[2021-04-19] MEDS ORDERED: DEXAMETHASONE SOD PHOSPHATE 10 MG/ML 1 ML VIAL IV STA (22:59)
[2021-04-20] MEDS: SODIUM CHLORIDE 0.9% 1,000 ML IV SCH ×4 (01:09→20:13)
[2021-04-20] MEDS ORDERED: diphenhydrAMINE 50 MG/ML 1 ML VIAL IVP STA (01:17)
[2021-04-20] MEDS: DEXAMETHASONE SOD PHOSPHATE 4 MG/ML 1 ML VIAL IV SCH ×4 (01:18→18:10)
[2021-04-20] MEDS ORDERED: ONDANSETRON 4 MG TAB PO PRN (02:44)
--- NOTE | 2021-04-20 02:59 | P.HPIM ---
History of Present Illness H&P Date: 04/20/21 Chief Complaint: worsening lower extremity weakness 80 year old female with stage IV lung cancer with mets to the brain , P. afib patient in known to have stage IV lung cancer with mets to the brain , she has stopped immunotherapy back in June 2020, due to intolerance of side effects. she is not currently signed up to Hospice. she is here today , as her family is unable to take care of her anymore due to worsening of her left lower extremity weakness, and by coming today , was hoping that she can get some IV meds that can help with her worsening brain edema that might help with her lower extremity weakness she denies any headache, changes in her vision, denies any saddle numbness or tingling, or any changes in her bowel or bladder control . she has been started recently on PO dexamethasone after results of her brain MRI 04/11/2021 showing progression of her brain mets. she denies any fever, chills, nausea vomiting, chest pain or troble breathing , she denies any GI bleeding Review of Systems Pertinent positives as noted in HPI. All other systems were reviewed and are negative Past Medical History Past Medical History: Atrial Fibrillation, Cancer, GERD/Reflux, Hyperlipidemia, Hypertension, Osteoarthritis (OA) Additional Past Medical History / Comment(s): lung CA History of Any Multi-Drug Resistant Organisms: None Reported Past Surgical History: Cholecystectomy, Hysterectomy, Joint Replacement Additional Past Surgical History / Comment(s): Left knee replacement Past Anesthesia/Blood Transfusion Reactions: Previous Problems w/ Anesthesia Additional Past Anesthesia/Blood Transfusion Reaction / Comment(s): Heart rate d rops with anesthesia Past Psychological History: No Psychological Hx Reported Smoking Status: Former smoker Past Drug Use History: None Reported - Past Family History Mother Family Medical History: Osteoarthritis (OA) Father Family Medical History: CVA/TIA Sister(s) Family Medical History: Cancer Additional Family Medical History / Comment(s): ovarian, colorectal, lung Brother(s) Family Medical History: Cancer Additional Family Medical History / Comment(s): brain Medications and Allergies Home Medications Medication Instructions Recorded Confirmed Type Omeprazole 20 mg PO DAILY 02/15/18 04/19/21 History Potassium Chloride [Klor-Con 10] 10 meq PO DAILY 02/27/18 04/19/21 History Calcium Carbonate/Vitamin D3 2 tab PO BID 01/23/20 04/19/21 History [Caltrate 600 Plus D3 20 Mcg (800 Iu)] Glucosamine/Chondr Kim A Sod [Osteo 1 tab PO BID 01/23/20 04/19/21 History Bi-Flex Caplet] Albuterol Inhaler [Ventolin Hfa 2 puff INHALATION RT-Q4H PRN 05/31/20 04/19/21 History Inhaler] HYDROcodone/APAP 10-325MG [Kingsland 1 tab PO Q6H PRN 05/31/20 04/19/21 History 10-325] Ondansetron [Zofran] 4 mg PO Q6H PRN 05/31/20 04/19/21 History Turmeric Root Extract [Turmeric] 500 mg PO BID 05/31/20 04/19/21 History Cyanocobalamin [Vitamin B-12] 500 mcg PO DAILY tab 06/03/20 04/19/21 Rx Metoprolol Tartrate [Lopressor] 50 mg PO BID tab 06/03/20 04/19/21 Rx Apixaban [Eliquis] 5 mg PO BID 04/19/21 04/19/21 History Cholecalciferol [Vitamin D3 (25 25 mcg PO DAILY 04/19/21 04/19/21 History Mcg = 1000 Iu)] Dexamethasone [Decadron] See Taper PO DIRECTED 04/19/21 04/19/21 History Furosemide [Lasix] 20 mg PO DAILY 04/19/21 04/19/21 History Gabapentin 600 mg PO TID 04/19/21 04/19/21 History Loratadine [Claritin] 10 mg PO DAILY 04/19/21 04/19/21 History Gillham-3 Fatty Acids/Fish Oil [Fish 1 cap PO DAILY 04/19/21 04/19/21 History Oil 1,000 mg Softgel] Allergies Allergy/AdvReac Type Severity Reaction Status Date / Time No Known Allergies Allergy Verified 04/19/21 22:54 Physical Exam Vitals: Vital Signs Pulse Resp BP Pulse Ox 04/19/21 21:54 102 H 17 130/91 98 Intake and Output 04/19/21 04/19/21 04/20/21 14:59 22:59 06:59 Other: Weight 121.109 kg - Constitutional Constitutional: No acute distress, conversant, pleasant Eyes: Anicteric sclerae, moist conjunctiva, Pupils equal round reactive to light ENMT: NC/AT Oropharynx clear, no erythema, or exudates Neck: Supple, FROM, no masses, or JVD No carotid bruits No thyromegaly Lungs: Clear to auscultation Clear to percussion Normal respiratory effort, no accessory muscle use Cardiovascular: Heart irregular in rate and rhythm, No murmurs, gallops, or rubs No peripheral edema Abdominal: Soft Nontender, no guarding, rebound or rigidity Abdomen moving with respiration Normoactive bowel sounds No hepatomegaly, No splenomegaly No palpable mass No abdominal wall hernia noted Skin: Normal temperature, tone, texture, turgor No induration No subcutaneous nodules No rash, lesions No ulcers Extremities: No digital cyanosis No clubbing Pedal pulses intact and symmetrical Radial pulses intact and symmetrical No calf tenderness Psychiatric: Alert and oriented to person, place and time Appropriate affect fair judgement Neuro Muscles Strength 4/5 in bilateral upper extremities and right lower extremity , however, left lower extremity is at 3/5 strength Sensation to light touch grossly present throughout Cranial nerves II-XII grossly intact No focal sensory deficits Lymphatics: no palpable cervical or supraclavicular , or inguinal lymph nodes Results CBC & Chem 7: 04/19/21 22:08 04/19/21 22:08 Labs: Abnormal Lab Results - Last 24 Hours (Table) 04/19/21 04/19/21 Range/Units 22:08 22:08 RBC 5.51 H (3.80-5.40) m/uL Hct 47.9 H (34.0-46.0) % Neutrophils # 7.8 H (1.3-7.7) k/uL Sodium 134 L (137-145) mmol/L Carbon Dioxide 21 L (22-30) mmol/L BUN 35 H (7-17) mg/dL Glucose 118 H (74-99) mg/dL Calcium 10.9 H (8.4-10.2) mg/dL Creatine Kinase <20 L (30-135) U/L Assessment and Plan Assessment: stage 4 lung cancer with mets to the brain progression brain mets with edema on PO steroids left lower extremity weakness afib with RVR plan supportive care patient is not currently receiving any treatment for her cancer due to intolerance of side effects fall precautions patient would like to defer hospice eval for outpatient at this time PT eval radiation oncology eval IV dexamethasone PPI resume home meds follow up labs CODE STATUS:no code DVT prophylaxis: on eliquis Discussed with: Grupo, ER Anticipated length of stay < than [address]: pending clinical course, patient would like to go home A total of 70 minutes was spent on the care of this complex patient more than 50% of the time was spent in counseling and care coordination.
[2021-04-20 06:12] LABS: Basophils % (A) 0 %; Eosinophils # (A) 0.1 k/uL (0-0.7); Eosinophils % (A) 1 %; HCT 46.7 % (34.0-46.0); HGB 15.1 gm/dL (11.4-16.0); Lymphocytes # (A) 0.9 k/uL (1.0-4.8); Lymphocytes % (A) 10 %; MCH 28.5 pg (25.0-35.0); MCHC 32.3 g/dL (31.0-37.0); MCV 88.2 fL (80.0-100.0); Mean Platelet Volume 7.2; Monocytes # (A) 0.4 k/uL (0-1.0); Monocytes % (A) 4 %; Neutrophils # (A) 7.7 k/uL (1.3-7.7); Neutrophils % (A) 85 %; Platelet Count 274 k/uL (150-450); RBC 5.29 m/uL (3.80-5.40); WBC 9.1 k/uL (3.8-10.6)
[2021-04-20 06:28] LABS: Albumin 3.7 g/dL (3.5-5.0); Calcium 9.8 mg/dL (8.4-10.2); Magnesium 2.1 mg/dL (1.6-2.3); Phosphorus 4.3 mg/dL (2.5-4.5); Potassium 4.3 mmol/L (3.5-5.1); Total Bilirubin 0.5 mg/dL (0.2-1.3); Total Protein 6.5 g/dL (6.3-8.2)
[2021-04-20] MEDS: METOPROLOL TARTRATE 50 MG TAB PO SCH ×2 (07:54→20:12)
[2021-04-20] MEDS: PANTOPRAZOLE 40 MG TABLET PO SCH (07:54)
[2021-04-20] MEDS: APIXABAN 5 MG TAB PO SCH ×2 (07:54→20:11)
[2021-04-20] MEDS: GABAPENTIN 300 MG CAP PO SCH ×3 (07:54→20:11)
[2021-04-20] MEDS: LORATADINE 10 MG TAB PO SCH (08:04)
[2021-04-20] MEDS ORDERED: MORPHINE SULFATE 4 MG/ML SYRINGE IVP PRN (08:10)
--- NOTE | 2021-04-20 09:02 | P.PN ---
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 Patient requesting assistance with weakness as she states she does not want to be a burden on her family. In the emergency department patient was also noted to have mild episode of A. fib RVR. EKG completed showing A. fib with RVR to 103 bpm. Patient received Cardizem bolus resulting in obtaining a controlled ventricular rate. Patient is currently admitted under our services with consultation to oncology and hospice. Urinalysis resulting positive for UTI, patient started on Rocephin 1 g IVPB every 24 hours, urine culture pending. Physical exam: Vital signs reviewed and stable. General: Nontoxic, no distress and appears stated age. Derm: Skin warm and dry, normal coloration for ethnicity. Head: Atraumatic, normocephalic and symmetric. Eyes: EOMs intact, no lid lag, and anicteric sclera Mouth: no lip lesions, mucus membranes moist Cardiovascular: Irregularly irregular rhythm, no murmur, positive posterior tibial pulses bilaterally, and cap refill < 2 seconds. Lungs: Respirations even, regular, and unlabored on room air. Lungs CTA bilaterally, no rhonchi, no rales, no wheezing, and no accessory muscle usage. Abdominal: soft, nontender to palpation, no guarding, no appreciable organomegaly Ext: ROM intact. No gross muscle atrophy, trace edema, no contractures. Bila teral upper extremities with equal and moderate strength, slight weakness noted to bilateral lower extremities slightly worse to left lower extremity. Patient was able to get up to bedside commode using walker and with assistance. Neuro: Speech clear, face symmetrical and CN II-XII grossly intact with no noted focal neuro deficits Psych: Alert and oriented to person, place, time, and situation. Appropriate and pleasant affect. Assessment and Plan of Care: Stage IV lung cancer with metastases to brain Progression of brain metastasis resulting in intracranial edema currently on oral steroids Bilateral lower extremity weakness, worse on left -Patient is not currently receiving any treatment for metastatic cancer secondary to intolerance of side effects. -Consult placed to hematology/oncology -Consult to hospice -PT evaluation -Dexamethasone 4 mg IVP every 6 hours -Symptomatic care and pain management -Fall precautions and assistance as needed Atrial fibrillation with RVR -Patient received Cardizem bolus resulting in resolution of RVR, patient since maintaining a controlled ventricular rate. -Patient to continue anticoagulation with Eliquis and metoprolol for rate control. UTI -Urinalysis positive for UTI. -IV antibiotics with Rocephin 1 g every 24 hours -Urine culture pending -Bladder management CODE STATUS: DO NOT RESUSCITATE/DO NOT INTUBATE DVT prophylaxis: Eliquis Discussed with: Patient, RN, and patient's daughter Ivana via telephone call Anticipated discharge date: Clinical course to determine Anticipated discharge place: Home with homecare versus SNF A total of 45 minutes was spent on the care of this complex patient more than 50% of the time was spent in counseling and care coordination. Objective - Vital Signs Vital signs: Vital Signs Temp 97.6 F 04/20/21 07:15 Pulse 81 04/20/21 07:56 Resp 16 04/20/21 07:56 BP 154/103 04/20/21 07:56 Pulse Ox 96 04/20/21 07:56 Intake & Output 04/19/21 04/20/21 04/20/21 18:59 06:59 18:59 Weight 121.109 kg - Labs CBC & Chem 7: 04/20/21 05:58 04/20/21 05:58 Labs: Abnormal Lab Results - Last 24 Hours (Table) 04/19/21 04/19/21 04/20/21 Range/Units 22:08 22:08 05:58 RBC 5.51 H (3.80-5.40) m/uL Hct 47.9 H 46.7 H (34.0-46.0) % Neutrophils # 7.8 H (1.3-7.7) k/uL Lymphocytes # 0.9 L (1.0-4.8) k/uL Sodium 134 L (137-145) mmol/L Carbon Dioxide 21 L (22-30) mmol/L BUN 35 H (7-17) mg/dL Glucose 118 H (74-99) mg/dL Calcium 10.9 H (8.4-10.2) mg/dL Creatine Kinase <20 L (30-135) U/L 08/09/21 Range/Units 05:58 RBC (3.80-5.40) m/uL Hct (34.0-46.0) % Neutrophils # (1.3-7.7) k/uL Lymphocytes # (1.0-4.8) k/uL Sodium 136 L (137-145) mmol/L Carbon Dioxide 20 L (22-30) mmol/L BUN 34 H (7-17) mg/dL Glucose 155 H (74-99) mg/dL Calcium (8.4-10.2) mg/dL Creatine Kinase (30-135) U/L
[2021-04-20 10:09] LABS: Appearance,Urine Cloudy (Clear); Bacteria,Urine Few /hpf; Bilirubin,Urine Negative (Negative); Blood,Urine Negative (Negative); Color,Urine Yellow; Glucose,Urine (UA) Negative (Negative); Ketones,Urine Negative (Negative); Leukocyte Esterase,Urine Large (Negative); Mucus,Urine Rare /hpf; Nitrite,Urine Negative (Negative); Protein,Urine Negative (Negative); RBC,Urine 2 /hpf (0-5); Specific Gravity,Urine 1.016 (1.001-1.035); Squamous Epithelial Cell,Urine 1 /hpf (0-4); Urobilinogen,Urine <2.0 mg/dL (<2.0); WBC,Urine 57 /hpf (0-5)
[2021-04-20] MEDS: HYDROcodone/APAP 10-325MG 1 EACH TAB PO PRN (12:33)
[2021-04-20] MEDS: NYSTATIN 100,000 UNIT/GM POWD 15 GM TOPICAL SCH ×3 (12:34→20:12)
[2021-04-20] MEDS ORDERED: diphenhydrAMINE 25 MG CAP PO STA ×2 (19:41→22:01)
[2021-04-21] MEDS: DEXAMETHASONE SOD PHOSPHATE 4 MG/ML 1 ML VIAL IV SCH ×4 (00:43→17:22)
[2021-04-21] MEDS: SODIUM CHLORIDE 0.9% 1,000 ML IV SCH ×3 (06:22→20:21)
[2021-04-21] MEDS: METOPROLOL TARTRATE 50 MG TAB PO SCH ×2 (08:41→20:21)
[2021-04-21] MEDS: LORATADINE 10 MG TAB PO SCH (08:41)
[2021-04-21] MEDS: PANTOPRAZOLE 40 MG TABLET PO SCH (08:41)
[2021-04-21] MEDS: GABAPENTIN 300 MG CAP PO SCH ×3 (08:41→20:21)
[2021-04-21] MEDS: APIXABAN 5 MG TAB PO SCH ×2 (08:41→20:21)
[2021-04-21] MEDS: NYSTATIN 100,000 UNIT/GM POWD 15 GM TOPICAL SCH ×3 (08:42→20:22)
--- NOTE | 2021-04-21 10:28 | P.PN ---
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 Patient requesting assistance with weakness as she states she does not want to be a burden on her family. In the emergency department patient was also noted to have mild episode of A. fib RVR. EKG completed showing A. fib with RVR to 103 bpm. Patient received Cardizem bolus resulting in obtaining a controlled ventricular rate. Patient is currently admitted under our services with consultation to oncology and hospice. Urinalysis resulting positive for UTI, patient started on Rocephin 1 g IVPB every 24 hours, urine culture pending. Physical exam: Patient seen and fully evaluated at the bedside this morning. Patient condition is stable. She denied having any complaints or needs. Patient had no difficulties with breakfast and states she ate her entire breakfast. Patient denies having any headache, lightheadedness, dizziness, chest pain, palpitations, shortness of breath, abdominal pain, nausea, vomiting, or experiencing any numbness/tingling in her extremities. Patient continues to have lower extremity weakness worse on the left. Awaiting PT evaluation. Continue with IV Rocephin for treatment of UTI pending urine culture results. Vital signs reviewed and stable. General: Nontoxic, no distress and appears stated age. Derm: Skin warm and dry, normal coloration for ethnicity. Head: Atraumatic, normocephalic and symmetric. Eyes: EOMs intact, no lid lag, and anicteric sclera Mouth: no lip lesions, mucus membranes moist Cardiovascular: Irregularly irregular rhythm, no murmur, positive posterior tibial pulses bilaterally, and cap refill < 2 seconds. Lungs: Respirations even, regular, and unlabored on room air. Lungs CTA bilaterally, no rhonchi, no rales, no wheezing, and no accessory muscle usage. Abdominal: soft, nontender to palpation, no guarding, no appreciable organomegaly Ext: ROM intact. No gross muscle atrophy, trace edema, no contractures. Derek ateral upper extremities with equal and moderate strength, slight weakness noted to bilateral lower extremities slightly worse to left lower extremity. Patient was able to get up to bedside commode using walker and with assistance. Neuro: Speech clear, face symmetrical and CN II-XII grossly intact with no noted focal neuro deficits Psych: Alert and oriented to person, place, time, and situation. Appropriate and pleasant affect. Assessment and Plan of Care: Stage IV lung cancer with metastases to brain Progression of brain metastasis resulting in intracranial edema currently on oral steroids Bilateral lower extremity weakness, worse on left -Patient is not currently receiving any treatment for metastatic cancer secondary to intolerance of side effects. -Consult placed to hematology/oncology, awaiting further recommendations -Consult to hospice, patient and family undecided about hospice vs palliative care at this time and planning to discuss amongst themselves further and talk further with hospice later today -PT evaluation -Hold oral steroids and continue with Dexamethasone 4 mg IVP every 6 hours -Symptomatic care and pain management -Fall precautions and assistance as needed Atrial fibrillation with RVR -Patient received Cardizem bolus resulting in resolution of RVR, patient since maintaining a controlled ventricular rate. -Patient to continue anticoagulation with Eliquis and metoprolol for rate control. UTI -Urinalysis positive for UTI. -IV antibiotics with Rocephin 1 g every 24 hours -Urine culture pending -Bladder management CODE STATUS: DO NOT RESUSCITATE/DO NOT INTUBATE DVT prophylaxis: Eliquis Discussed with: Patient and RN Anticipated discharge date: Clinical course to determine Anticipated discharge place: Home with homecare versus SNF A total of 35 minutes was spent on the care of this complex patient more than 50% of the time was spent in counseling and care coordination. Objective - Vital Signs Vital signs: Vital Signs Temp 97.8 F 04/21/21 05:00 Pulse 71 04/21/21 05:00 Resp 20 04/21/21 05:00 BP 157/83 04/21/21 05:00 Pulse Ox 97 04/21/21 05:00 Intake & Output 04/20/21 04/21/21 04/21/21 18:59 06:59 18:59 Intake Total 825 200 Output Total 600 1880 Balance 225 -1680 Weight 121.109 kg Intake: Oral 825 200 Output: Urine 600 1390 Straight 790 Post Void Residual 490 Other: Voiding Method Bedside Commode # Voids 1 1 - Labs CBC & Chem 7: 04/20/21 05:58 04/20/21 05:58 Labs: Microbiology - Last 24 Hours (Table) 04/20/21 09:25 Urine Culture - Preliminary Urine,Voided
--- NOTE | 2021-04-21 11:19 | P.CONS ---
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 She presented with right hip pain and 2 brain metastases, undergoing palliative RT to the hip and SRS to the two lesions finishing on 02/29/20. She subsequently developed pain at a known site of disease in the C-spine again undergoing palliative RT finishing on 03/07/20. She experienced new sites of pain including the left ribs and left hip for which she received another course of palliative RT finishing on 03/25/20. She continued on immunotherapy but has been on observation for several months without evidence of progression. She now presents due to left leg weakness and difficulty with ambulation. The patient has had recent difficulty with weakness in her left lower extremity. This is gradually gotten worse over the past month. She has not had significant pain in the leg or low back. She no longer feels comfortable weight bearing on the left side, and this has made it difficult for her to get around in her house. Her family has noticed recent difficulty with urinary continence as well. The patient was evaluated in our clinic on April 10. An MRI of the brain was ordered, and this revealed worsening edema along the right posterior frontal/parietal region. There is concerned that there is been growth of a previously treated brain lesion along the lateral right ventricle. This was initially treated in February 2020. The patient was subsequently started on dexamethasone, and had treatment for several days of 4 mg 3 times a day. The patient's family noticed this did not seem to improve the left lower extremity weakness. The patient is currently hospitalized and reports she had a small headache earlier today which was resolved with Tylenol. She has had no difficulty with speech or confusion. She has no difficulty with the upper extremities, but the left lower extremity continues to be profoundly weak. The patient and her family feel that she is no longer able to safely stay at home. Review of Systems Constitutional: Denies chills, Denies chronic headaches, Denies fever Ears, nose, mouth and throat: Denies headache, Denies hoarseness Cardiovascular: Denies chest pain, Denies dyspnea on exertion Respiratory: Denies cough Gastrointestinal: Denies BRBPR Genitourinary: Reports stress incontinence, Reports urge incontinence Musculoskeletal: Reports leg numbness/tingling Neurological: Reports balance difficulties, Reports paresthesias (LLE), Denies aphasia, Denies ataxia, Denies confusion, Denies convulsions, Denies double vision, Denies lack of coordination, Denies numbness, Denies seizures Psychiatric: Denies anxiety, Denies confusion Past Medical History Past Medical History: Atrial Fibrillation, Cancer, GERD/Reflux, Hyperlipidemia, Hypertension, Osteoarthritis (OA) Additional Past Medical History / Comment(s): lung CA with brain and bone metastasis History of Any Multi-Drug Resistant Organisms: None Reported Past Surgical History: Cholecystectomy, Hysterectomy, Joint Replacement Additional Past Surgical History / Comment(s): Left knee replacement, bilateral cataracts/lens implants Past Anesthesia/Blood Transfusion Reactions: Previous Problems w/ Anesthesia Additional Past Anesthesia/Blood Transfusion Reaction / Comm: Heart rate drops with anesthesia Past Psychological History: No Psychological Hx Reported Smoking Status: Former smoker Past Alcohol Use History: Occasional Past Drug Use History: None Reported - Past Family History Mother Family Medical History: Osteoarthritis (OA) Father Family Medical History: CVA/TIA Sister(s) Family Medical History: Cancer Additional Family Medical History / Comment(s): ovarian, colorectal, lung Brother(s) Family Medical History: Cancer Additional Family Medical History / Comment(s): brain Medications and Allergies Home Medications Medication Instructions Recorded Confirmed Type Omeprazole 20 mg PO DAILY 02/15/18 04/19/21 History Potassium Chloride [Klor-Con 10] 10 meq PO DAILY 02/27/18 04/19/21 History Calcium Carbonate/Vitamin D3 2 tab PO BID 01/23/20 04/19/21 History [Caltrate 600 Plus D3 20 Mcg (800 Iu)] Glucosamine/Chondr Kim A Sod [Osteo 1 tab PO BID 01/23/20 04/19/21 History Bi-Flex Caplet] Albuterol Inhaler [Ventolin Hfa 2 puff INHALATION RT-Q4H PRN 05/31/20 04/19/21 History Inhaler] HYDROcodone/APAP 10-325MG [[place] 1 tab PO Q6H PRN 05/31/20 04/19/21 History 10-325] Ondansetron [Zofran] 4 mg PO Q6H PRN 05/31/20 04/19/21 History Turmeric Root Extract [Turmeric] 500 mg PO BID 05/31/20 04/19/21 History Cyanocobalamin [Vitamin B-12] 500 mcg PO DAILY tab 06/03/20 04/19/21 Rx Metoprolol Tartrate [Lopressor] 50 mg PO BID tab 06/03/20 04/19/21 Rx Apixaban [Eliquis] 5 mg PO BID 04/19/21 04/19/21 History Cholecalciferol [Vitamin D3 (25 25 mcg PO DAILY 04/19/21 04/19/21 History Mcg = 1000 Iu)] Dexamethasone [Decadron] See Taper PO DIRECTED 04/19/21 04/19/21 History Furosemide [Lasix] 20 mg PO DAILY 04/19/21 04/19/21 History Gabapentin 600 mg PO TID 04/19/21 04/19/21 History Loratadine [Claritin] 10 mg PO DAILY 04/19/21 04/19/21 History [place]-3 Fatty Acids/Fish Oil [Fish 1 cap PO DAILY 04/19/21 04/19/21 History Oil 1,000 mg Softgel] Allergies Allergy/AdvReac Type Severity Reaction Status Date / Time No Known Allergies Allergy Verified 04/19/21 22:54 Physical Exam Vitals: Vital Signs Temp Pulse Resp BP BP Pulse Ox 04/21/21 08:00 16 04/21/21 05:00 97.8 F 71 20 157/83 97 04/20/21 20:06 98.6 F 88 18 114/66 96 04/20/21 20:00 18 04/20/21 12:12 98.5 F 79 16 144/80 95 Intake and Output 04/20/21 04/21/21 04/21/21 22:59 06:59 14:59 Intake Total 825 200 Output Total 600 1880 Balance 225 -1680 Intake: Oral 825 200 Output: Urine 600 1390 Straight 790 Post Void Residual 490 Other: Voiding Method Bedside Commode Bedside Commode # Voids 0 1 - Constitutional General appearance: obese - EENT Eyes: EOMI, PERRLA ENT: hearing grossly normal - Neck Neck: no lymphadenopathy - Respiratory Respiratory: bilateral: CTA - Cardiovascular Rhythm: regular - Neurologic Neurologic: CNII-XII intact - Musculoskeletal Musculoskeletal: no gait normal, no generalized weakness, left sided weakness (LLE 2/5 strength, LUE 4+/5) - Psychiatric Psychiatric: A&O x's 3, appropriate affect, intact judgment & insight Results CBC & Chem 7: 04/20/21 05:58 04/20/21 05:58 Labs: Microbiology - Last 24 Hours (Table) 04/20/21 09:25 Urine Culture - Preliminary Urine,Voided MRI - head: report reviewed, image reviewed Assessment and Plan Assessment: The patient is an 80-year-old female with a history of a stage IVB (cT2, cN2, 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 She presented with right hip pain and 2 brain metastases, undergoing palliative RT to the hip and SRS to the two lesions finishing on 02/29/20. She subsequently developed pain at a known site of disease in the C-spine again undergoing palliative RT finishing on 03/07/20. She experienced new sites of pain including the left ribs and left hip for which she received another course of palliative RT finishing on 03/25/20. She continued on immunotherapy but has been on observation for several months without evidence of progression. She now presents due to left leg weakness and difficulty with ambulation. Her brain MRI is worrisome for increased edema of the right posterior frontal/parietal region. Plan: 1. Left lower extremity weakness: As noted above, the patient has significant edema of the right posterior frontal brain. There appears to be an enlarging area of enhancement along the lateral ventricle. This area was previously treated with radiation in February 2020. Therefore, this could represent radiation necrosis versus tumor progression. This certainly could be contributing the cause of her left lower extremity weakness. Regardless, it is unusual the patient has not responded well to steroids considering there is significant surrounding vasogenic edema. I would recommend the patient undergo an MRI of the brain with perfusion. I am unsure if this could be done at this time and will discuss with radiology. Continue Dexamethasone with GI PPX. Celebrex can be considered if radiation necrosis is confirmed (or at least suggested by MR Prefusion). I would like to rule out that the patient has had elsewhere progression of her disease and I recommend she undergo an MRI of the lumbar/sacral region. Considering she also has symptoms of incontinence, this could be a problem in the lower nerve roots. 2. Metastatic NSCLC: Recommend consultation for medical oncology. The patient has been doing quite well and has had no evidence of progression up until her recent episode. Her most recent PET scan from January 30 revealed no evidence of disease. 3. Weakness/Debility: Upon finalization of the patient's workup, she will likely require MARC as she is currently unable to care for herself at home. Time with Patient: Greater than 30
--- NOTE | 2021-04-21 12:44 | CDI ---
Documentation Clarification Form Date: 04/21/2021 12:32:00 PM From: Ruby Salinas RN, CCDS Admit Date: 04/19/2021 10:59:00 PM Patient Name: Nancy Hart Visit Number: [id number] ATTENTION: The Clinical Documentation Specialists (CDI) and [facility] Coding Staff appreciate your assistance in clarifying documentation. Please respond to the clarification below the line at the bottom and electronically sign. The CDI & [facility] Coding staff will review the response and follow-up if needed. Please note: Queries are made part of the Legal Health Record. If you have any questions, please contact the author of this message via ITS. Dr. Yoan Rodriguez Atrial Fibrillation is documented In the H&P and attending Progress Notes. Additional clarification regarding the type of atrial fibrillation is requested. History/Risk Factors: Atrial Fib, dehydration, HTN, HLD, stage 4 lung ca with mets to bone and brain with vasogenic edema Clinical Indicators: 04/20-04/21 Progress Note: "Atrial fibrillation with RVR -Patient received Cardizem bolus resulting in resolution of RVR, patient since maintaining a controlled ventricular rate." 04/19/ EKG: Atrial Fib RVR Treatment: Eliquis 5 mg PO BID 04/19 15mg IVP Cardizem Bolus 04/20 - Current: Lopressor 50 mg PO BID 04/19 1L 0.9% NS IVF Bolus followed by 130 cc/hr. Please clarify the type of atrial fibrillation, if known: [ ] Chronic [ ] Permanent [ ] Paroxysmal [ ] Persistent [ ] Other, please specify [ ] Unable to determine (Template Last Revised: January 2021) Paroxysmal MTDD
--- NOTE | 2021-04-21 13:18 | P.CONS ---
History of Present Illness - Reason for Consult Consult date: 04/21/21 Metastatic Lung Cancer Brain Mets Requesting physician: Hubert Esposito - Chief Complaint LE weakness and Headaches - History of Present Illness This is a very nice lady who presented with persistent dry cough started in August/2019,she had a CXR then a CT scan of chest done on 01/03/2020 which revealed 4 cm cavitary mass in RLL and enlarged hilar nodes,PET scan on 01/18/2020 revealed suspicious uptake in RLL lung mass,right hilar node and subcarinal node and evidence of multiple osseous lesions,including her hips. On 01/29/2020,CT guided biopsy of left iliac bone lesion was positive for adenocarcinoma consistent with lung primary. PDL-1 was 20% NextGen sequencing and liquid biopsy did not show any actionable mutation On 02/12/2020,brain MRI revealed 2 small lesions consistent with metastatic disease. She completed palliative XRT to hips,brain (SBRT) and cervical spine on 03/07/2020. On 03/21/2020,she started yervoy/opdivo,it was held on 05/16/2020 due to signifcant weakness. She was very dehydrated,which led to CRISS,improved with IV hydration. She had a repeat PET scan on 05/30/2020,which I reviewed it with radiologist,there was significant improvement in hilar and mediastinal nodes and her osseous lesions,however,there was a new area of consolidation very low SUV uptake,felt more inflammatory. 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 On 08/15/2020,repeat PET scan revealed no evidence of progression,the new area of consolidation in left lung has resolved. On 10/08/2020,MRI of C-spine was negative. On 11/07/2020,repeat PET scan revealed small right pleural effusion,otherwise stable disease Repeat PET scan on 01/30/2021,revealed no evidence of progression. She continues to have pain in her hands and shoulders,on neurontin,on norco as needed,completed predniosne 2.5 mg every other day on 02/21/2021,she tired,has some leg edema,knees pain. She presents with worsening Left lower extremity weaknessMost recent MRI did show significant edema of the right posterior frontal brain. Dexamethasone does not appear to be improving overall symptoms, which is not common given the mention of significant vasogenic edema. There appears to be an enlarging area of enhancement along the lateral ventricle. Area last treated with radiation in February 2020. Therefore, this could represent radiation necrosis versus tumor progression. Continue Dexamethasone with PPI. review of Dr. Payne note and agree with further imaging of Brain with MR Perfusion for additional options to improve symptoms. Review of Systems All systems: negative Constitutional: Reports as per HPI Past Medical History Past Medical History: Atrial Fibrillation, Cancer, GERD/Reflux, Hyperlipidemia, Hypertension, Osteoarthritis (OA) Additional Past Medical History / Comment(s): lung CA with brain and bone metastasis History of Any Multi-Drug Resistant Organisms: None Reported Past Surgical History: Cholecystectomy, Hysterectomy, Joint Replacement Additional Past Surgical History / Comment(s): Left knee replacement, bilateral cataracts/lens implants Past Anesthesia/Blood Transfusion Reactions: Previous Problems w/ Anesthesia Additional Past Anesthesia/Blood Transfusion Reaction / Comm: Heart rate drops with anesthesia Past Psychological History: No Psychological Hx Reported Smoking Status: Former smoker Past Alcohol Use History: Occasional Past Drug Use History: None Reported - Past Family History Mother Family Medical History: Osteoarthritis (OA) Father Family Medical History: CVA/TIA Sister(s) Family Medical History: Cancer Additional Family Medical History / Comment(s): ovarian, colorectal, lung Brother(s) Family Medical History: Cancer Additional Family Medical History / Comment(s): brain Medications and Allergies Home Medications Medication Instructions Recorded Confirmed Type Omeprazole 20 mg PO DAILY 02/15/18 04/19/21 History Potassium Chloride [Klor-Con 10] 10 meq PO DAILY 02/27/18 04/19/21 History Calcium Carbonate/Vitamin D3 2 tab PO BID 01/23/20 04/19/21 History [Caltrate 600 Plus D3 20 Mcg (800 Iu)] Glucosamine/Chondr Kim A Sod [Osteo 1 tab PO BID 01/23/20 04/19/21 History Bi-Flex Caplet] Albuterol Inhaler [Ventolin Hfa 2 puff INHALATION RT-Q4H PRN 05/31/20 04/19/21 History Inhaler] HYDROcodone/APAP 10-325MG [[place] 1 tab PO Q6H PRN 05/31/20 04/19/21 History 10-325] Ondansetron [Zofran] 4 mg PO Q6H PRN 05/31/20 04/19/21 History Turmeric Root Extract [Turmeric] 500 mg PO BID 05/31/20 04/19/21 History Cyanocobalamin [Vitamin B-12] 500 mcg PO DAILY tab 06/03/20 04/19/21 Rx Metoprolol Tartrate [Lopressor] 50 mg PO BID tab 06/03/20 04/19/21 Rx Apixaban [Eliquis] 5 mg PO BID 04/19/21 04/19/21 History Cholecalciferol [Vitamin D3 (25 25 mcg PO DAILY 04/19/21 04/19/21 History Mcg = 1000 Iu)] Dexamethasone [Decadron] See Taper PO DIRECTED 04/19/21 04/19/21 History Furosemide [Lasix] 20 mg PO DAILY 04/19/21 04/19/21 History Gabapentin 600 mg PO TID 04/19/21 04/19/21 History Loratadine [Claritin] 10 mg PO DAILY 04/19/21 04/19/21 History [place]-3 Fatty Acids/Fish Oil [Fish 1 cap PO DAILY 04/19/21 04/19/21 History Oil 1,000 mg Softgel] Allergies Allergy/AdvReac Type Severity Reaction Status Date / Time No Known Allergies Allergy Verified 04/19/21 22:54 Physical Exam Vitals: Vital Signs Temp Pulse Resp BP BP Pulse Ox 04/21/21 08:00 16 04/21/21 05:00 97.8 F 71 20 157/83 97 04/20/21 20:06 98.6 F 88 18 114/66 96 04/20/21 20:00 18 Intake and Output 04/20/21 04/21/21 04/21/21 22:59 06:59 14:59 Intake Total 825 200 Output Total 600 1880 0 Balance 225 -1680 0 Intake: Oral 825 200 Output: Urine 600 1390 Straight 790 Post Void Residual 490 0 Other: Voiding Method Bedside Commode Bedside Commode # Voids 0 1 Constitutional General appearance: obese - EENT Eyes: EOMI, PERRLA ENT: hearing grossly normal - Neck Neck: no lymphadenopathy - Respiratory Respiratory: bilateral: CTA - Cardiovascular Rhythm: regular - Neurologic Neurologic: CNII-XII intact - Musculoskeletal Musculoskeletal: no gait normal, no generalized weakness, left sided weakness (LLE 2/5 strength, LUE 4+/5) - Psychiatric Psychiatric: A&O x's 3, appropriate affect, intact judgment & insight Results CBC & Chem 7: 04/20/21 05:58 04/20/21 05:58 Labs: Microbiology - Last 24 Hours (Table) 04/20/21 09:25 Urine Culture - Preliminary Urine,Voided MRI - head: report reviewed Assessment and Plan (1) Brain metastasis Current Visit: Yes Status: Acute Code(s): C79.31 - SECONDARY MALIGNANT NEOPLASM OF BRAIN SNOMED Code(s): 34810652 (2) Adenocarcinoma of lung, stage 4 Narrative/Plan: a stage IVB (cT2, cN2, M1c) adenocarcinoma of the right lower lung with multiple bony metastasis and recurrent Brain Mets in February 2021 Current Visit: No Status: Chronic Priority: Medium Code(s): C34.90 - MALIGNANT NEOPLASM OF UNSP PART OF UNSP BRONCHUS OR LUNG SNOMED Code(s): 350019970 Plan: Assessment and Recommendations: Metastatic Lung Cancer: - Currently not receiving systemic therapy - Status Post Treatment of recurrent Brain Mets - Last treatment given was Immune therapy - Most recent PET - Without progression of systemic disease Most recent MRI did show significant edema of the right posterior frontal brain. Dexamethasone does not appear to be improving overall symptoms, which is not common given the mention of significant vasogenic edema. There appears to be an enlarging area of enhancement along the lateral ventricle. Area last treated with radiation in February 2020. Therefore, this could represent radiation necrosis versus tumor progression. Continue Dexamethasone with PPI. review of Dr. Esposito's note and agree with further imaging of Brain with MR Perfusion for additional options to improve symptoms. - Continue Dex/PPI - Agree with further imaging Brain per Radiation Oncology
[2021-04-22] MEDS: DEXAMETHASONE SOD PHOSPHATE 4 MG/ML 1 ML VIAL IV SCH ×5 (00:06→23:36)
[2021-04-22] MEDS: SODIUM CHLORIDE 0.9% 1,000 ML IV SCH ×2 (05:52→13:30)
[2021-04-22] MEDS: NYSTATIN 100,000 UNIT/GM POWD 15 GM TOPICAL SCH ×3 (08:22→21:53)
[2021-04-22] MEDS: METOPROLOL TARTRATE 50 MG TAB PO SCH ×2 (08:22→20:42)
[2021-04-22] MEDS: GABAPENTIN 300 MG CAP PO SCH ×3 (08:22→21:53)
[2021-04-22] MEDS: PANTOPRAZOLE 40 MG TABLET PO SCH (08:22)
[2021-04-22] MEDS: APIXABAN 5 MG TAB PO SCH ×2 (08:22→20:42)
[2021-04-22] MEDS: LORATADINE 10 MG TAB PO SCH (08:22)
--- NOTE | 2021-04-22 13:55 | P.PN ---
Subjective Progress Note Date: 04/22/21 (brigidyad charting seen at 1045) Principal diagnosis: weakness Patient is an 80-year-old female with a history of stage IV lung cancer with metastases to brain resulting in recently diagnosed right frontal cerebral edema and started on dexamethasone by Dr. Esposito, paroxysmal A. fib, and GERD who presented to the hospital with complaints of progressive left lower extremity weakness. On admission she was noted to have a sodium 134, carbon dioxide 21, glucose 118, calcium 10.9. She was noted to have some A. fib with rapid ventricular response and was given a IV push dose of Cardizem which resulted in rate control. She was admitted for further monitoring due to concerns that this could represent progression of her cancer. She was also noted to have a urinary tract infection was started on Rocephin. She was seen by oncology. She was noted to have some significant left lower extremity weakness was evaluated by physical and occupational therapy. Patient seen and examined at bedside. She denies any unusual chest pain, shortness breath, nausea. She still is having some left lower extremity weakness. She states therapy states that is improving. She is aware of the plan for MRI lumbar spine today General: , no distress, appears at stated age Derm: warm, dry Head: atraumatic, normocephalic, symmetric Eyes: EOMI, no lid lag, anicteric sclera Mouth: no lip lesion, mucus membranes moist Cardiovascular: S1S2 reg, no murmur, positive posterior tibial pulse bilateral, Lungs: CTA bilateral, no rhonchi, no rales , no accessory muscle use Abdominal: soft, nontender to palpation, no guarding, no appreciable organomegaly Ext: no gross muscle atrophy, no edema, no contractures Neuro: CN II-XI grossly intact, no focal neuro deficits Psych: Alert, oriented, appropriate affect Aggressive left lower extremity weakness Stage IV non-small cell lung cancer with metastases to the brain status post radiation February 2020 -Continue with steroids -Medical and radiation oncology recommendations appreciated -Await MRI lumbar spine Gram-negative urinary tract infection -Present on admission -Continue with Rocephin -Await culture results Paroxysmal atrial fibrillation -Eliquis, Lopressor - RVR on admission Debility -PT/OT -Fall precautions Chronic: Hypertension Dyslipidemia Osteoarthritis GERD DVT prophylaxis: Eliquis Discussed with: patient, nursing, daughter Ivana over the phone Anticipated discharge: 1-[address]: rehab A total of 35 minutes was spent on the care of this complex patient more than 50% of the time was spent in counseling and care coordination. Objective - Vital Signs Vital signs: Vital Signs Temp 97.6 F 04/22/21 12:40 Pulse 88 04/22/21 12:40 Resp 18 04/22/21 12:40 BP 134/82 04/22/21 12:40 Pulse Ox 96 04/22/21 12:40 Intake & Output 04/21/21 04/22/21 04/22/21 18:59 06:59 18:59 Intake Total 3200 200 Output Total 900 2100 Balance 2300 -1900 Intake: Intake, IV Titration 1350 Amount Sodium Chloride 0.9% 1, 1300 000 ml @ 130 mls/hr IV . Q7H42M [facility] Rx#:[id number] cefTRIAXone 1 gm In 50 Sodium Chloride 0.9% 50 ml @ 100 mls/hr IVPB Q24H [facility] Rx#:[id number] Oral 1850 200 Output: Urine 900 2100 Post Void Residual 0 Other: Voiding Method Bedside Commode Bedside Commode # Voids 2 - Labs CBC & Chem 7: 04/20/21 05:58 04/20/21 05:58 Labs: Microbiology - Last 24 Hours (Table) 04/20/21 09:25 Urine Culture - Preliminary Urine,Voided Gram Neg Bacilli
[2021-04-22] MEDS: HYDROcodone/APAP 10-325MG 1 EACH TAB PO PRN (15:33)
--- NOTE | 2021-04-22 15:37 | MR ---
EXAMINATION TYPE: MR lspine/sacrum wo/w con DATE OF EXAM: 04/22/2021 COMPARISON: Nuclear medicine PET/CT 01/30/2021 HISTORY: Lower back pain, Left Leg weakness, Cancer history TECHNIQUE: Multiplanar, multisequence images of the lumbar spine and sacrum is performed without and with IV con trast, utilizing 12 mL intravenous Gadavist FINDINGS: Sagittal images of the lumbar spine show anterolisthesis grade 1 L4-5, lumbar vertebral bod ies show preserved height. There is multilevel spondylosis. Loss of disc height and signal is present at intervertebral levels especially L1-2, L3-4, L4-5, associated vacuum phenomenon. There is a spina l curvature. Visualized cord signal, conus medullaris are within normal limits. Spinous process of L4 inferiorly shows T2 bright focus, T1 hypointense with contrast enhancement measuring approximately 9 mm. L5-S1 shows facet arthropathy change. No significant foraminal encroachment or spinal stenosis, no disc herniation. L4-5: Spinal stenosis is contributed by the listhesis as well as facet arthropathy with hypertrophy l igamentum flavum, listhesis also contributes to cause bilateral foraminal encroachment. Spinal stenos is is moderate to severe. L3-4: Posterior disc bulge causes mild anterior mass effect on the thecal sac. There is facet arthrop athy with hypertrophy ligamentum flavum. No significant spinal stenosis. Some foraminal encroachment is present due to circumferential extension endplate disc complex greater on the left. L2-3: Posterior broad-based disc bulge causes anterior mass effect on the thecal sac. There is facet arthropathy with hypertrophy ligamentum flavum, mild to moderate spinal stenosis. Circumferential ext ension endplate disc complex results in foraminal encroachment greater on the left than on the right. L1-2: Posterior extension endplate disc complex is somewhat eccentric towards the right. There is layla e encroachment towards the right neural foramen. No significant spinal stenosis. In the right sacrum there is a focus of increased signal on inversion recovery, intermediate signal a nd low signal on T1 weighted sequences measuring approximately 17 mm x 13 mm which shows ring enhance ment. Sacroiliac joint is intact. IMPRESSION: Findings suspicious for metastasis to the right sacrum, L4 spinous process. Degenerative disc disease, multilevel foraminal encroachment, spinal stenosis.
--- NOTE | 2021-04-22 20:57 | P.PN ---
Subjective Progress Note Date: 04/22/21 LLE remains significantly weaker, noted foot drop. Objective - Vital Signs Vital signs: Vital Signs Temp 97.6 F 04/22/21 12:40 Pulse 88 04/22/21 12:40 Resp 18 04/22/21 12:40 BP 134/82 04/22/21 12:40 Pulse Ox 96 04/22/21 12:40 Intake & Output 04/21/21 04/22/21 04/22/21 18:59 06:59 18:59 Intake Total 3200 200 Output Total 900 2100 Balance 2300 -1900 Intake: Intake, IV Titration 1350 Amount Sodium Chloride 0.9% 1, 1300 000 ml @ 130 mls/hr IV . Q7H42M [facility] Rx#:[id number] cefTRIAXone 1 gm In 50 Sodium Chloride 0.9% 50 ml @ 100 mls/hr IVPB Q24H [facility] Rx#:[id number] Oral 1850 200 Output: Urine 900 2100 Post Void Residual 0 Other: Voiding Method Bedside Commode Bedside Commode # Voids 2 - Exam Constitutional General appearance: obese - EENT Eyes: EOMI, PERRLA ENT: hearing grossly normal - Neck Neck: no lymphadenopathy - Respiratory Respiratory: bilateral: CTA - Cardiovascular Rhythm: regular - Neurologic Neurologic: CNII-XII intact - Musculoskeletal Musculoskeletal: no gait normal, no generalized weakness, left sided weakness (LLE 2/5 strength, LUE 4+/5), +drop foot - Psychiatric Psychiatric: A&O x's 3, appropriate affect, intact judgment & insight - Labs CBC & Chem 7: 04/20/21 05:58 04/20/21 05:58 Labs: Microbiology - Last 24 Hours (Table) 04/20/21 09:25 Urine Culture - Preliminary Urine,Voided Gram Neg Bacilli Assessment and Plan (1) Brain metastasis Current Visit: Yes Status: Acute Code(s): C79.31 - SECONDARY MALIGNANT NEOPLASM OF BRAIN SNOMED Code(s): 84376227 (2) Adenocarcinoma of lung, stage 4 Current Visit: No Status: Chronic Priority: Medium Code(s): C34.90 - MALIGNANT NEOPLASM OF UNSP PART OF UNSP BRONCHUS OR LUNG SNOMED Code(s): 798071124 Plan: Assessment and Recommendations: Metastatic Lung Cancer: - Currently not receiving systemic therapy - Status Post Treatment of recurrent Brain Mets - Last treatment given was Immune therapy - Most recent PET - Without progression of systemic disease Most recent MRI did show significant edema of the right posterior frontal brain. Dexamethasone does not appear to be improving overall symptoms, which is not common given the mention of significant vasogenic edema. There appears to be an enlarging area of enhancement along the lateral ventricle. Area last treated with radiation in February 2020. Therefore, this could represent radiation necrosis versus tumor progression. Continue Dexamethasone with PPI. review of Dr. Esposito's note and agree with further imaging of Brain with MR Perfusion for additional options to improve symptoms. - Continue Dex/PPI - Agree with further imaging Brain per Radiation Oncology All other management per primary team Await MRI of spine Physician Attest: I have completed the full history and physical and agree with above dictation, dictated as a scribe
[2021-04-23] MEDS ORDERED: diphenhydrAMINE 25 MG CAP PO STA (00:03)
[2021-04-23] MEDS: DEXAMETHASONE SOD PHOSPHATE 4 MG/ML 1 ML VIAL IV SCH ×2 (06:04→13:06)
[2021-04-23] MEDS: GABAPENTIN 300 MG CAP PO SCH (07:37)
[2021-04-23] MEDS: PANTOPRAZOLE 40 MG TABLET PO SCH (07:37)
[2021-04-23] MEDS: APIXABAN 5 MG TAB PO SCH (07:37)
[2021-04-23] MEDS: METOPROLOL TARTRATE 50 MG TAB PO SCH (07:37)
[2021-04-23] MEDS: HYDROcodone/APAP 10-325MG 1 EACH TAB PO PRN (07:38)
[2021-04-23] MEDS: NYSTATIN 100,000 UNIT/GM POWD 15 GM TOPICAL SCH (07:38)
[2021-04-23] MEDS: LORATADINE 10 MG TAB PO SCH (07:38)
--- NOTE | 2021-04-23 09:15 | P.PN ---
Subjective Progress Note Date: 04/22/21 Principal diagnosis: left leg weakness/debility The patient reports that over the past couple days she has had significant improvement in her left leg strength. She is able to lift the leg off the bed, and states she was able to ambulate a short distance with a walker. She states she had a headache after her recent MRI of the lumbar/sacrum, but otherwise has been feeling well and denies nausea or back pain. Objective - Vital Signs Vital signs: Vital Signs Temp 97.4 F L 04/23/21 05:00 Pulse 85 04/23/21 05:00 Resp 16 04/23/21 05:00 BP 152/88 04/23/21 05:00 Pulse Ox 96 04/23/21 05:00 Intake & Output 04/22/21 04/23/21 04/23/21 18:59 06:59 18:59 Intake Total 590 Balance 590 Intake: Oral 590 Other: Voiding Method Bedside Commode Bedside Commode # Voids 3 2 - Constitutional General appearance: Present: no acute distress - EENT Eyes: Present: EOMI, PERRLA ENT: Present: hearing grossly normal - Neck Neck: Absent: lymphadenopathy - Respiratory Respiratory: bilateral: CTA - Cardiovascular Rhythm: regular - Gastrointestinal General gastrointestinal: Absent: distended, tenderness - Integumentary Integumentary: Absent: calor, rash - Neurologic Neurologic: Present: CNII-XII intact - Musculoskeletal Musculoskeletal: Present: left sided weakness (Improved LLE - currently 4-/5) - Psychiatric Psychiatric: Present: A&O x's 3, appropriate affect - Labs CBC & Chem 7: 04/20/21 05:58 04/20/21 05:58 Labs: Microbiology - Last 24 Hours (Table) 04/20/21 09:25 Urine Culture - Final Urine,Voided Escherichia coli Assessment and Plan Assessment: The patient is an 80-year-old female with a history of recently diagnosed stage IVB (cT2, cN2, M1c) adenocarcinoma of the right lower lung with multiple bony me tastasis. She presented with right hip pain and 2 brain metastases, undergoing palliative RT to the hip and SRS to the two lesions finishing on 02/29/20. She subsequently developed pain at a known site of disease in the C-spine again undergoing palliative RT finishing on 03/07/20. She experienced new sites of pain including the left ribs and left hip for which she received another course of palliative RT finishing on 03/25/20. She has not had recent disease progression despite stopping immunotherapy some time ago. She presents with leg weakness and an enlarging right posterior frontal area worrisome for recurrent disease vs radionecrosis. Plan: 1. LLE weakness - Improving on steroids. MRI of the L/S spine reviewed, no clear cord/nerve root compression to attribute weakness to. Likely weakness due to vasogenic edema from lesion in right posterior frontal lobe. Continue decadron at 4 mg TID - can drop to 4 mg BID in 10 days. Continue GI PPX. Will set the patient for follow-up in our clinic on 05/04/2021. OK to discharge to rehab. We will order an outpatient MRI perfusion of her brain (this type of scan is not performed at [facility]). 2. Metastatic NSCLC - PET-CT planned for Tuesday. Has been on hold from immunotherapy without recent progression based on prior imaging. Time with Patient: Less than 30
[2021-04-23 13:10] VITALS: BP 132/76; PULSE 89; RESP 18; TEMP 97.9
--- NOTE | 2021-04-23 13:18 | P.DS ---
Providers Date of admission: 04/19/21 22:59 Expected date of discharge: 04/23/21 Attending physician: Milagros Rodriguez MD Consults: 04/19/21 22:56 Consult Physician Routine Consulting Provider: Hubert Esposito Consult Reason/Comments: known Do you want consulting provider notified?: Yes 04/21/21 11:20 Consult Physician Routine Consulting Provider: Francisco Prado Consult Reason/Comments: Patient known to Dr. 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 Coli urinary tract infection Paroxysmal atrial fibrillation Debility Hypertension Dyslipidemia Osteoarthritis GERD Hospital Course: Patient is an 80-year-old female with a history of stage IV lung cancer with metastases to brain resulting in recently diagnosed right frontal cerebral edema and started on dexamethasone by Dr. Esposito, paroxysmal A. fib, and GERD who presented to the hospital with complaints of progressive left lower extremity weakness. On admission she was noted to have a sodium 134, carbon dioxide 21, glucose 118, calcium 10.9. She was noted to have some A. fib with rapid ventricular response and was given a IV push dose of Cardizem which resulted in rate control. She was admitted for further monitoring due to concerns that this could represent progression of her cancer. She was also noted to have a urinary tract infection was started on Rocephin. She was seen by oncology. She was noted to have some significant left lower extremity weakness was evaluated by physical and occupational therapy. SHe had MRI of the lumbar spine preformed which showed severe spinal stenosis and lesion at L4 sinuous process and lesion in the right sacral area. Case was dsicussed with Dr. Esposito who felt symptoms were more consistent with edema noted in the right brain on outpatient MRI. she was alos could to have n E. Coli UTI which was treated as complicated due to immunosupression from steroids. Follow-up: Dr. Esposito on 05/04, will need outpatient MRI of the brain at [facility] due to diffusion, Decadron 4 mg TID until seen by Dr. Esposito. PET will be delayed until discharged from rehab Patient seen and examined at bedside. Feeling well no pain after fall, no chest pain, no shortness of breath, no nausea. Vital signs reviewed and stable. General: non toxic, no distress, appears at stated age Derm: warm, dry Head: atraumatic, normocephalic, symmetric Eyes: EOMI, no lid lag, anicteric sclera Mouth: no lip lesion, mucus membranes moist Cardiovascular: S1S2 reg, no murmur, positive posterior tibial pulse bilateral, Lungs: Decreased bs bilateral, no rhonchi, no rales , no accessory muscle use Abdominal: soft, nontender to palpation, no guarding, no appreciable organomegaly Ext: no gross muscle atrophy, no edema, no contractures Neuro: CN II-XI grossly intact, no focal neuro deficits, muscle stregth 4/5 in RLE and 3-4/5 in left lower leg, no briusing no pain to palpation of left hip. Psych: Alert, oriented, appropriate affect A total of 35 minutes of time were spent preparing this complex discharge summary . Patient Condition at Discharge: Fair Plan - Discharge Summary Discharge Rx Participant: No New Discharge Prescriptions: New Pantoprazole [Protonix] 40 mg PO DAILY tablet. Dexamethasone [Decadron] 4 mg PO TID 12 Days tablet Cephalexin [Keflex] 500 mg PO Q8HR 1 Days #3 cap Nystatin 100,000 Unit/gm Powd [Mycostatin Powder] 1 applic TOPICAL TID applic Continue Potassium Chloride [Klor-Con 10] 10 meq PO DAILY Calcium Carbonate/Vitamin D3 [Caltrate 600 Plus D3 20 Mcg (800 Iu)] 2 tab PO BID Glucosamine/Chondr Kim A Sod [Osteo Bi-Flex Caplet] 1 tab PO BID Albuterol Inhaler [Ventolin Hfa Inhaler] 2 puff INHALATION RT-Q4H PRN PRN Reason: Shortness Of Breath Turmeric Root Extract [Turmeric] 500 mg PO BID Metoprolol Tartrate [Lopressor] 50 mg PO BID tab Cyanocobalamin [Vitamin B-12] 500 mcg PO DAILY tab Furosemide [Lasix] 20 mg PO DAILY Loratadine [Claritin] 10 mg PO DAILY HYDROcodone/APAP 10-325MG [[place] 10-325] 1 tab PO Q6H PRN #24 tab PRN Reason: Pain [place]-3 Fatty Acids/Fish Oil [Fish Oil 1,000 mg Softgel] 1 cap PO DAILY Cholecalciferol [Vitamin D3 (25 Mcg = 1000 Iu)] 25 mcg PO DAILY Apixaban [Eliquis] 5 mg PO BID Gabapentin 600 mg PO TID #21 tab Discontinued Omeprazole 20 mg PO DAILY Ondansetron [Zofran] 4 mg PO Q6H PRN PRN Reason: Nausea Dexamethasone [Decadron] See Taper PO DIRECTED Discharge Medication List Potassium Chloride [Klor-Con 10] 10 meq PO DAILY 02/27/18 [History] Calcium Carbonate/Vitamin D3 [Caltrate 600 Plus D3 20 Mcg (800 Iu)] 2 tab PO BID 01/23/20 [History] Glucosamine/Chondr Kim A Sod [Osteo Bi-Flex Caplet] 1 tab PO BID 01/23/20 [History] Albuterol Inhaler [Ventolin Hfa Inhaler] 2 puff INHALATION RT-Q4H PRN 05/31/20 [History] Turmeric Root Extract [Turmeric] 500 mg PO BID 05/31/20 [History] Cyanocobalamin [Vitamin B-12] 500 mcg PO DAILY tab 06/03/20 [Rx] Metoprolol Tartrate [Lopressor] 50 mg PO BID tab 06/03/20 [Rx] Apixaban [Eliquis] 5 mg PO BID 04/19/21 [History] Cholecalciferol [Vitamin D3 (25 Mcg = 1000 Iu)] 25 mcg PO DAILY 04/19/21 [H istory] Furosemide [Lasix] 20 mg PO DAILY 04/19/21 [History] Loratadine [Claritin] 10 mg PO DAILY 04/19/21 [History] [place]-3 Fatty Acids/Fish Oil [Fish Oil 1,000 mg Softgel] 1 cap PO DAILY 04/19/21 [History] Cephalexin [Keflex] 500 mg PO Q8HR 1 Days #3 cap 04/23/21 [Rx] Dexamethasone [Decadron] 4 mg PO TID 12 Days tablet 04/23/21 [Rx] Gabapentin 600 mg PO TID #21 tab 04/23/21 [Rx] HYDROcodone/APAP 10-325MG [[place] 10-325] 1 tab PO Q6H PRN #24 tab 04/23/21 [Rx] Nystatin 100,000 Unit/gm Powd [Mycostatin Powder] 1 applic TOPICAL TID applic 04/23/21 [Rx] Pantoprazole [Protonix] 40 mg PO DAILY tablet. 04/23/21 [Rx] Follow up Appointment(s)/Referral(s): Hubert Esposito MD [STAFF PHYSICIAN] - 05/04/21 12:30 pm (Cancelled MRI of Spine for 05/01/2021 due to completed in the hospital. Follow up appt with Dr Esposito is 05/04/2021 at 12:30pm at [facility] Brice Morgan MD [Primary Care Provider] - 1-2 days Activity/Diet/Wound Care/Special Instructions: Activity: as tolerated with assistance Diet: heart healthy Discharge Disposition: TRANSFER TO SNF/ECF
--- NOTE | 2021-04-23 15:42 | P.PN ---
Subjective Progress Note Date: 04/23/21 Principal diagnosis: LLE Weakness Discussed with primary team and physical therapy who state her LLE weakness has improved since admission. Will plan to discharge today on Dexamethasone 4mg TID and PPI. Appointment for follow-up with Dr. Kumar added to discharge instructions. Objective - Vital Signs Vital signs: Vital Signs Temp 97.9 F 04/23/21 13:00 Pulse 89 04/23/21 13:00 Resp 18 04/23/21 13:00 BP 132/76 04/23/21 13:00 Pulse Ox 96 04/23/21 13:00 Intake & Output 04/22/21 04/23/21 04/23/21 18:59 06:59 18:59 Intake Total 590 Balance 590 Intake: Oral 590 Other: Voiding Method Bedside Commode Bedside Commode Bedside Commode # Voids 3 2 - Exam Constitutional General appearance: obese - EENT Eyes: EOMI, PERRLA ENT: hearing grossly normal - Neck Neck: no lymphadenopathy - Respiratory Respiratory: bilateral: CTA - Cardiovascular Rhythm: regular - Neurologic Neurologic: CNII-XII intact - Musculoskeletal Musculoskeletal: no gait normal, no generalized weakness, left sided weakness (LLE 2/5 strength, LUE 4+/5), +drop foot - Psychiatric Psychiatric: A&O x's 3, appropriate affect, intact judgment & insight - Labs CBC & Chem 7: 04/20/21 05:58 04/20/21 05:58 Labs: Microbiology - Last 24 Hours (Table) 04/20/21 09:25 Urine Culture - Final Urine,Voided Escherichia coli Assessment and Plan (1) Brain metastasis Current Visit: Yes Status: Acute Code(s): C79.31 - SECONDARY MALIGNANT N EOPLASM OF BRAIN SNOMED Code(s): 95640445 (2) Adenocarcinoma of lung, stage 4 Current Visit: No Status: Chronic Priority: Medium Code(s): C34.90 - MA LIGNANT NEOPLASM OF UNSP PART OF UNSP BRONCHUS OR LUNG SNOMED Code(s): 42 9933740 Plan: Assessment and Recommendations: Metastatic Lung Cancer: - Currently not receiving systemic therapy - Status Post Treatment of recurrent Brain Mets - Last treatment given was Immune therapy - Most recent PET - Without progression of systemic disease Most recent MRI did show significant edema of the right posterior frontal brain. Dexamethasone does not appear to be improving overall symptoms, which is not common given the mention of significant vasogenic edema. There appears to be an enlarging area of enhancement along the lateral ventricle. Area last treated with radiation in February 2020. Therefore, this could represent radiation necrosis versus tumor progression. Continue Dexamethasone with PPI. review of Dr. Esposito's note and agree with further imaging of Brain with MR Perfusion for additional options to improve symptoms. - Continue Dex/PPI - Agree with further imaging Brain per Radiation Oncology All other management per primary team Review of Lumbar spine and no identified causes for LLE weakness. She will follow up with Radiation oncology at discharge for planning and scheduling of perfusion MRI at [facility] and palliaitive radiation iscussed with primary team and physical therapy who state her LLE weakness has improved since admission. Will plan to discharge today on Dexamethasone 4mg TID and PPI. Appointment for follow-up with Dr. Kumar added to discharge instructions.
== END 2021-04-23 16:20 | DRG 180 ==
LOC: EC 21:42 → 5NMEDONC 22:59
PROVIDERS: ADMIT Internal Medicine; ATTEND Internal Medicine
DX: C34.90 Malignant neoplasm of unspecified part of unspecified bronchus or lung (principal); G93.6 Cerebral edema; C79.31 Secondary malignant neoplasm of brain; N39.0 Urinary tract infection, site not specified; C79.51 Secondary malignant neoplasm of bone; N17.9 Acute kidney failure, unspecified; D84.821 Immunodeficiency due to drugs; E86.0 Dehydration; Z66 Do not resuscitate; E78.5 Hyperlipidemia, unspecified; I10 Essential (primary) hypertension; K21.9 Gastro-esophageal reflux disease without esophagitis; M19.90 Unspecified osteoarthritis, unspecified site; R05 Cough; M79.641 Pain in right hand; M79.642 Pain in left hand; B96.20 Unspecified Escherichia coli [E. coli] as the cause of diseases classified elsewhere; M62.81 Muscle weakness (generalized); L30.4 Erythema intertrigo; M48.061 Spinal stenosis, lumbar region without neurogenic claudication; T38.0X5A Adverse effect of glucocorticoids and synthetic analogues, initial encounter; R60.0 Localized edema; I48.0 Paroxysmal atrial fibrillation; M21.379 Foot drop, unspecified foot; M25.551 Pain in right hip; Z90.710 Acquired absence of both cervix and uterus; Z87.891 Personal history of nicotine dependence; Z79.899 Other long term (current) drug therapy; Z79.01 Long term (current) use of anticoagulants; Z96.1 Presence of intraocular lens; Z96.652 Presence of left artificial knee joint; Z92.3 Personal history of irradiation; X58.XXXA Exposure to other specified factors, initial encounter; Z90.49 Acquired absence of other specified parts of digestive tract; Z98.42 Cataract extraction status, left eye; Z98.41 Cataract extraction status, right eye
CPT/HCPCS: 36415; 72158; 72197; 80053; 81001; 82550; 83605; 83735; 83880; 84100; 84484; 85025; 85610; 85730; 87077; 87086; 87186; 93005; 96361; 96374; 96375; 99285